=== PATIENT | male | born 1970 | race Caucasian/White ===

== ENCOUNTER 2018-11-27 15:50 | Inpatient (IN) | payer MEDICAID, OTHER ==
[~2018-11-27] VITALS: Ht 177.8 cm; Wt 91.7 kg
[2018-11-27 16:34] LABS: HEMATOCRIT 29 % (40-54); HEMOGLOBIN 10.4 G/DL (13.3-17.7); MEAN CORPUSCULAR HEMOGLOBIN 37 PG (25-34); WHITE BLOOD COUNT 4.5 10^3/uL (4.3-11.0)
[2018-11-27 16:35] LABS: BASOPHILS % (AUTO) 1 % (0-10); EOSINOPHILS % (AUTO) 1 % (0-10); LYMPHOCYTES # (AUTO) 1.5 X 10^3 (1.0-4.0); LYMPHOCYTES % (AUTO) 33 % (12-44); MEAN CORPUSCULAR HGB CONC 36 G/DL (32-36); MEAN CORPUSCULAR VOLUME 102 FL (80-99); MEAN PLATELET VOLUME 9.5 FL (7.4-10.4); MONOCYTES # (AUTO) 0.6 X 10^3 (0.0-1.0); MONOCYTES % (AUTO) 13 % (0-12); NEUTROPHILS # (AUTO) 2.4 X 10^3 (1.8-7.8); NEUTROPHILS % (AUTO) 52 % (42-75); PLATELET COUNT 238 10^3/uL (130-400); RED CELL DISTRIBUTION WIDTH 15.9 % (10.0-14.5)
[2018-11-27 16:36] LABS: BASOPHILS # (AUTO) 0.1 10^3/uL (0.0-0.1)
[2018-11-27 16:56] VITALS: BP_SYST 116; BP_SYST 124; BP_SYST 83; BP_DIAS 54; BP_DIAS 80; BP_DIAS 96
[2018-11-27 16:56] LABS: SODIUM 139 MMOL/L (135-145)
[2018-11-27 16:58] LABS: ALANINE AMINOTRANSFERASE 35 U/L (0-55); ALKALINE PHOSPHATASE 165 U/L (40-136); BILIRUBIN,TOTAL 1.3 MG/DL (0.1-1.0); BUN/CREATININE RATIO 13; CALCIUM 9.4 MG/DL (8.5-10.1); CARBON DIOXIDE 20 MMOL/L (21-32); CHLORIDE 93 MMOL/L (98-107); GFR ESTIMATED > 60; GLUCOSE 147 MG/DL (70-105); POTASSIUM 2.2 MMOL/L (3.6-5.0)
[2018-11-27 16:59] LABS: ALBUMIN 3.8 GM/DL (3.2-4.5); TOTAL PROTEIN 6.6 GM/DL (6.4-8.2)
[2018-11-27] MEDS ORDERED: NS IV 1000 ML 1,000 ML IV SCH ×2 (17:00→18:45)
[2018-11-27] MEDS ORDERED: KCL 20 MEQ TAB (K-DUR) PO ONE ×3 (17:00→22:45)
--- NOTE | 2018-11-27 17:01 | Diagnostic Imaging Report ---
INDICATION: Shortness of air. Dizziness. Weakness. COMPARISON: None FINDINGS: Frontal and lateral views of the chest demonstrate normal heart size and pulmonary vascularity. The lungs are clear. There are no signs of infiltrate, pleural effusions or pneumothoraces. The visualized osseous structures show no acute abnormalities. IMPRESSION: 1. No acute process. No signs of infiltrates, effusions or pneumothoraces. Dictated by: Dictated on workstation # [id number]
[2018-11-27] MEDS ORDERED: RT-ALBUTEROL SULF 2.5 MG/3 ML PRE-MIX VIAL INH ONE (17:45)
[2018-11-27] MEDS ORDERED: NS W/KCL 40 MEQ/L 1,000 ML IV STA (17:54)
[2018-11-27] MEDS ORDERED: POTASSIUM CL 10MEQ/50ML IVPB 100 ML IV ONE (18:01)
--- NOTE | 2018-11-27 18:15 | ED General ---
General Chief Complaint: Neurological Problems Stated Complaint: SOA,WEAKNESS Nursing Triage Note: Patient reports numbness/tingling in his feet bilaterally and two fingers on his right hand for one week. Also reports generalized weakness, states he cannot walk far without needing to sit down. Also reports nasal drainage and cough for one week. Nursing Sepsis Screen: No Definite Risk History of Present Illness Date Seen by Provider: Nov 27, 2018 Time Seen by Provider: 15:00 Initial Comments 48 yo male hx above by nurse is accurate, these were the presenting complaints has hx of psych issues prior OD has been on several psych meds in the past, but currently only takes seroquel at HS occ trazadone, neither are new states he is unaware of having any active medical problem and has never been admitted for such no prior visits here pt is heavy etoh drinker, says a few weeks ago he ran out and hallucinated a little apparently never seized pt is adamant that he has not taken any intentional overdose or ingested any inappropriate substance c/o weakness, MCCARTHY, head and chest congestion, near syncopal episodes (though no syncope or fall) no chest pain no V or D has been constipated denies ever having had bloody or dark tarry stools no urinary sx's pt readily admits to etoh and THC use, denies harder drugs no IV use denies taking any diuretics or water pills Allergies and Home Medications Allergies Coded Allergies: No Known Drug Allergies (Unverified , 11/27/18) Patient Home Medication List Home Medication List Reviewed: Yes Review of Systems Review of Systems Constitutional: No chills; dizziness; No fever EENTM: nose congestion Respiratory: cough, wheezing Cardiovascular: no symptoms reported; No chest pain, No palpitations, No syncope Gastrointestinal: No abdominal pain; constipation; No diarrhea, No vomiting Genitourinary: no symptoms reported Musculoskeletal: muscle weakness Psychiatric/Neurological: Denies Depressed Past Aeyuwez-Udxghd-Ysrurz Hx Patient Social History Recent Foreign Travel: No Contact w/Someone Who Travel: No Recent Infectious Disease Expo: No Physical Exam Vital Signs Vital Signs - First Documented 11/27/18 15:55 Temp 98.0 Pulse 116 Resp 22 B/P (MAP) 119/84 (96) Pulse Ox 98 O2 Delivery Room Air Capillary Refill : Less Than 3 Seconds Height, Weight, BMI Height: 5'10.00" Weight: 230lbs. oz. 104.449085tu; BMI Method:Stated General Appearance: No Apparent Distress Eyes: Bilateral Eye PERRL, Bilateral Eye EOMI HEENT: Pharynx Normal Respiratory: Rhonci, Wheezing Cardiovascular: Regular Rate, Rhythm Gastrointestinal: Non Tender; No Guarding, No Rebound Extremity: Normal Inspection Focused Exam Lactate Level 11/27/18 17:55: Lactic Acid Level 5.35*H 11/27/18 19:56: Lactic Acid Level Laboratory Tests Test 11/27/18 17:55 11/27/18 19:56 Lactic Acid Level 5.35 MMOL/L (0.50-2.00) *H Progress/Results/Core Measures Suspected Sepsis Recent Fever Within 48 Hours: No Infection Criteria Present: None New/Unexplained Altered Menta: No Sepsis Screen: No Definite Risk SIRS Temperature:98.0 Pulse: 116 Respiratory Rate: 22 Laboratory Tests 11/27/18 16:25: White Blood Count 4.5 Blood Pressure 83 /54 Mean: 64 11/27/18 17:55: Lactic Acid Level 5.35*H 11/27/18 19:56: Laboratory Tests 11/27/18 16:25: Creatinine 0.70, Platelet Count 238, Total Bilirubin 1.3H Results/Orders Lab Results Laboratory Tests Test 11/27/18 16:08 11/27/18 16:25 11/27/18 17:55 11/27/18 18:30 Range/Units Glucometer 180 H 70-110 MG/DL White Blood Count 4.5 4.3-11.0 10^3/uL Red Blood Count 2.82 L 4.35-5.85 10^6/uL Hemoglobin 10.4 L 13.3-17.7 G/DL Hematocrit 29 L 40-54 % Mean Corpuscular Volume 102 H 80-99 FL Mean Corpuscular Hemoglobin 37 H 25-34 PG Mean Corpuscular Hemoglobin Concent 36 32-36 G/DL Red Cell Distribution Width 15.9 H 10.0-14.5 % Platelet Count 238 130-400 10^3/uL Mean Platelet Volume 9.5 7.4-10.4 FL Neutrophils (%) (Auto) 52 42-75 % Lymphocytes (%) (Auto) 33 12-44 % Monocytes (%) (Auto) 13 H 0-12 % Eosinophils (%) (Auto) 1 0-10 % Basophils (%) (Auto) 1 0-10 % Neutrophils # (Auto) 2.4 1.8-7.8 X 10^3 Lymphocytes # (Auto) 1.5 1.0-4.0 X 10^3 Monocytes # (Auto) 0.6 0.0-1.0 X 10^3 Eosinophils # (Auto) 0.0 0.0-0.3 10^3/uL Basophils # (Auto) 0.1 0.0-0.1 10^3/uL Sodium Level 139 135-145 MMOL/L Potassium Level 2.2 *L 3.6-5.0 MMOL/L Chloride Level 93 L 98-107 MMOL/L Carbon Dioxide Level 20 L 21-32 MMOL/L Anion Gap 26 H 5-14 MMOL/L Blood Urea Nitrogen 9 7-18 MG/DL Creatinine 0.70 0.60-1.30 MG/DL Estimat Glomerular Filtration Rate > 60 BUN/Creatinine Ratio 13 Glucose Level 147 H 70-105 MG/DL Calcium Level 9.4 8.5-10.1 MG/DL Corrected Calcium 9.6 8.5-10.1 MG/DL Magnesium Level 0.8 *L 1.8-2.4 MG/DL Total Bilirubin 1.3 H 0.1-1.0 MG/DL Aspartate Amino Transf (AST/SGOT) 96 H 5-34 U/L Alanine Aminotransferase (ALT/SGPT) 35 0-55 U/L Alkaline Phosphatase 165 H 40-136 U/L Troponin I < 0.30 <0.30 NG/ML Total Protein 6.6 6.4-8.2 GM/DL Albumin 3.8 3.2-4.5 GM/DL Serum Alcohol 87 H <10 MG/DL Lactic Acid Level 5.35 *H 0.50-2.00 MMOL/L Blood Gas Puncture Site LT RADIAL Blood Gas Patient Temperature 98 Arterial Blood pH 7.51 H 7.37-7.43 Arterial Blood Partial Pressure CO2 29 L 35-45 MMHG Arterial Blood Partial Pressure O2 61 L 79-93 MMHG Arterial Blood HCO3 23 23-27 MMOL/L Arterial Blood Total CO2 24.0 21.0-31.0 MMOL/L Arterial Blood Oxygen Saturation 93 L 94-100 % Arterial Blood Base Excess 0.9 -2.5-2.5 MMOL/L Arturo Test OK Blood Gas Ventilator Setting NO Blood Gas Inspired Oxygen N Test 11/27/18 19:05 11/27/18 19:56 Range/Units Urine Color DK YELLOW Urine Clarity SLT CLOUDY Urine pH 7.5 5-9 Urine Specific [place] 1.020 1.016-1.022 Urine Protein 1+ H NEGATIVE Urine Glucose (UA) NEGATIVE NEGATIVE Urine Ketones TRACE H NEGATIVE Urine Nitrite NEGATIVE NEGATIVE Urine Bilirubin 2+ H NEGATIVE Urine Urobilinogen >=8.0 NORMAL MG/DL Urine Leukocyte Esterase TRACE H NEGATIVE Urine RBC (Auto) NEGATIVE NEGATIVE Urine RBC NONE /HPF Urine WBC 0-2 /HPF Urine Squamous Epithelial Cells NONE /HPF Urine Crystals NONE /LPF Urine Bacteria NEGATIVE /HPF Urine Casts PRESENT /LPF Urine Hyaline Casts 2-5 H /LPF Urine Mucus FEW /LPF Urine Culture Indicated NO Urine Opiates Screen NEGATIVE NEGATIVE Urine Oxycodone Screen NEGATIVE NEGATIVE Urine Methadone Screen NEGATIVE NEGATIVE Urine Propoxyphene Screen NEGATIVE NEGATIVE Urine Barbiturates Screen NEGATIVE NEGATIVE Ur Tricyclic Antidepressants Screen POSITIVE H NEGATIVE Urine Phencyclidine Screen NEGATIVE NEGATIVE Urine Amphetamines Screen NEGATIVE NEGATIVE Urine Methamphetamines Screen NEGATIVE NEGATIVE Urine Benzodiazepines Screen NEGATIVE NEGATIVE Urine Cocaine Screen NEGATIVE NEGATIVE Urine Cannabinoids Screen POSITIVE H NEGATIVE Potassium Level 2.4 *L 3.6-5.0 MMOL/L My Orders Orders - SANDY COLBY MD Cbc With Automated Diff (11/27/18 16:15) Comprehensive Metabolic Panel (11/27/18 16:15) Accucheck Stat ONCE (11/27/18 16:15) Urinalysis (11/27/18 16:15) Orthostatic Vital Signs (Adult (11/27/18 16:22) Ekg Tracing (11/27/18 16:22) Troponin I (11/27/18 16:22) Chest Pa/Lat (2 View) (11/27/18 16:22) Drug Screen Stat (Urine) (11/27/18 16:25) Alcohol (11/27/18 16:25) Ns Iv 1000 Ml (Sodium Chloride 0.9%) (11/27/18 17:00) Potassium Chloride (Tablet) (K Dur Table (11/27/18 17:00) Lactic Acid Analyzer (11/27/18 17:42) Albuterol Pre-Mix Nebs (Rt) (Proventil (11/27/18 17:45) Svn Small Volume Nebulizer (11/27/18 17:42) Ns W/Kcl 40 Meq/L (Ns Iv W/Kcl 40 Meq/L) (11/27/18 17:54) Potassium Chloride (Tablet) (K Dur Table (11/27/18 18:00) Potassium Cl 10meq/50ml Ivpb (Kcl 10 Meq (11/27/18 18:01) Arterial Blood Gas (11/27/18 18:28) Potassium Cl 10meq/50ml Ivpb (Kcl 10 Meq (11/27/18 18:45) Ns Iv 1000 Ml (Sodium Chloride 0.9%) (11/27/18 18:45) Magnesium (11/27/18 18:53) Magnesium 1 Gm/100 Ml Ivpb (Magnesium Sharma (11/27/18 19:15) Potassium (11/27/18 19:54) Medications Given in ED Current Medications Medications Dose Ordered Sig/Selene Route Start Time Stop Time Status Last Admin Dose Admin Albuterol Sulfate 2.5 mg ONCE ONCE INH 11/27/18 17:45 11/27/18 17:51 DC 11/27/18 17:59 2.5 MG Potassium Chloride 20 meq ONCE ONCE PO 11/27/18 18:00 11/27/18 18:01 DC 11/27/18 18:39 20 MEQ Potassium Chloride 40 meq ONCE ONCE PO 11/27/18 17:00 11/27/18 17:01 DC 11/27/18 17:13 40 MEQ Potassium Chloride 50 ml @ 50 mls/hr ONCE ONCE IV 11/27/18 18:45 11/27/18 19:44 DC 11/27/18 19:32 50 MLS/HR Vital Signs/I&O 11/27/18 11/27/18 11/27/18 15:55 16:56 20:16 Temp 98.0 Pulse 116 108 Resp 22 B/P (MAP) 119/84 (96) 124/96 (105) 142/102 (115) 116/80 (92) 83/54 (64) Pulse Ox 98 O2 Delivery Room Air Capillary Refill : Less Than 3 Seconds Blood Pressure Mean: 64 Point of Care Testing Finger Stick Blood Glucose: 180 Progress Note : Time: 18:37 Progress Note orthostatts + BP to 83/61 so IV NS 1 liter given K+ 2.2 po and Iv replacement being given anion gap 26 lactate >5 getting 2nd liter etoh 87 ABG ordered pH 7.51 after 2 liters iv ns and po and IV doses of KCL repeat 2.4 and lactate only marginally better will require inpt to correct discussed with hospitalist Dr. Manjula Fair [facility] agrees to accept to tele ECG Initial ECG Impression Date: Nov 27, 2018 Initial ECG Impression Time: 16:15 Initial ECG Rhythm: Normal Sinus Initial ECG Impression: Normal Diagnostic Imaging Diagonstic Imaging: Xray (read as normal) Departure Communication (Admissions) Time/Spoke to Admitting Phy: 20:30 Dr Fair aware of all above wants 80 meq KCL in liter NS @125 and mg++ 4g IV overnight re check labs admit to tele Impression Primary Impression: Hypokalemia Additional Impressions: Lactic acidosis Hypomagnesemia Disposition: ADMITTED INPATIENT Condition: Improved Admissions Decision to Admit Reason: Admit from ER (General) Decision to Admit/Date: Nov 27, 2018 Time/Decision to Admit Time: 20:30 Departure-Patient Inst. Referrals: NO,LOCAL PHYSICIAN (PCP/Family) Primary Care Physician SANDY COLBY MD Nov 27, 2018 18:15
[2018-11-27 18:41] LABS: ALLENS TEST OK; INSPIRED O2 N; PATIENT TEMP 98; VENTILATOR NO
[2018-11-27 18:42] LABS: ABG BASE EXCESS 0.9 MMOL/L (-2.5-2.5); ABG OXYGEN SATURATION 93 % (94-100); ABG PCO2 29 MMHG (35-45); ABG PH 7.51 (7.37-7.43); ABG PO2 61 MMHG (79-93)
[2018-11-27] MEDS ORDERED: POTASSIUM CL 10MEQ/50ML IVPB 50 ML IV ONE (18:45)
[2018-11-27 19:26] LABS: BILIRUBIN,URINE 2+ (NEGATIVE); CLARITY,URINE SLT CLOUDY; COLOR,URINE DK YELLOW; GLUCOSE, URINE (UA) NEGATIVE (NEGATIVE); KETONES,URINE TRACE (NEGATIVE); LEUKOCYTE ESTERASE ,URINE TRACE (NEGATIVE); NITRITE,URINE NEGATIVE (NEGATIVE); PH,URINE 7.5 (5-9); PROTEIN,URINE 1+ (NEGATIVE); UROBILINOGEN,URINE >=8.0 MG/DL (NORMAL)
[2018-11-27 19:27] LABS: BACTERIA,URINE NEGATIVE /HPF; WBC,URINE 0-2 /HPF
[2018-11-27 19:29] LABS: CANNABINOID SCREEN, URINE POSITIVE (NEGATIVE); TRICYCLIC ANTIDEPRESSANTS SCRE POSITIVE (NEGATIVE)
[2018-11-27] MEDS: MAGNESIUM 1 GM/100 ML IVPB 100 ML IV SCH ×3 (19:29→23:07)
[2018-11-27 19:30] LABS: AMPHETAMINE SCREEN, URINE NEGATIVE (NEGATIVE); BARBITURATE SCREEN URINE NEGATIVE (NEGATIVE); BENZODIAZEPINES SCREEN URINE NEGATIVE (NEGATIVE); COCAINE SCREEN URINE NEGATIVE (NEGATIVE); METHADONE STAT NEGATIVE (NEGATIVE); METHAMPHETAMINE SCREEN URINE S NEGATIVE (NEGATIVE); OPIATE SCREEN URINE NEGATIVE (NEGATIVE); OXYCODONE STAT NEGATIVE (NEGATIVE); PROPOXYPHENE STAT NEGATIVE (NEGATIVE)
[2018-11-27 20:16] VITALS: BP 142/102
[2018-11-27] MEDS ORDERED: LORazepam INJ 2 MG/ML (ATIVAN) VIAL IVP ONE (21:15)
[2018-11-27] MEDS ORDERED: 1/2 NS W/KCL 20 MEQ/L 1,000 ML IV ONE (22:23)
[2018-11-27 22:24] VITALS: BP 129/108
[2018-11-27 22:30] VITALS: BP 137/124
[2018-11-27] MEDS ORDERED: MAGNESIUM 1 GM/100 ML IVPB 400 ML IV ONE (22:41)
[2018-11-27 22:45] VITALS: BP 144/102
[2018-11-27] MEDS: 1/2 NS W/KCL 20 MEQ/L 1,000 ML IV SCH (22:45)
[2018-11-27 23:00] VITALS: BP 138/102
[2018-11-27] MEDS: POTASSIUM CL 10MEQ/50ML IVPB 50 ML IV SCH (23:07)
[2018-11-28] VITALS (20 sets, daily range): BP systolic 12–177; BP diastolic 86–123
--- NOTE | 2018-11-28 | NUR ---
Pt requesting home medication of seroquel and trazodone. Pt reports taking 800 mg seroquel every night and "200 or 250" mg of trazodone every night. This RN contacted E-ICU, requested CIWA d/t pt's daily ETOH abuse and pt request for medication. This RN examined pt's external med history and noted pt has prescriptions filled for 800 mg seroquel Q HS and 150 mg trazodone Q HS, along with other medications to be addressed by hospitalist in am. Awaiting orders and guidance from E-ICU.
[2018-11-28] MEDS: POTASSIUM CL 10MEQ/50ML IVPB 50 ML IV SCH ×4 (00:03→05:33)
[2018-11-28] MEDS: MAGNESIUM 1 GM/100 ML IVPB 100 ML IV SCH ×4 (00:03→05:34)
[2018-11-28] MEDS ORDERED: QUEtiapine 200 MG (SEROquel) TAB IMMEDIATE RELEASE PO ONE (01:45)
[2018-11-28] MEDS ORDERED: traZODone 150 MG (DESYREL) TABLET PO ONE (01:45)
[2018-11-28] MEDS ORDERED: 1/2 NS IV SOLUTION 1,000 ML IV PRN (03:23)
[2018-11-28] MEDS ORDERED: D5 1/2 NS 1000 ML IV SOLUTION 1,000 ML IV PRN (03:30)
[2018-11-28] MEDS ORDERED: ONDANSETRON 4 MG/2 ML (SDV) Z0FRAN IV PRN (03:30)
[2018-11-28] MEDS ORDERED: ONDANSETRON 4 MG (ZOFRAN) ORAL DISSOLVE TAB SL PRN (03:30)
[2018-11-28] MEDS ORDERED: SENNA W/DOCUSATE (SENOKOT S) TABLET PO PRN (03:30)
[2018-11-28] MEDS ORDERED: LORazepam INJ 2 MG/ML (ATIVAN) VIAL IM/IV PRN (03:30)
[2018-11-28] MEDS ORDERED: ANTACID SUSP 30 ML UDC (MYLANTA) PO PRN (03:30)
[2018-11-28 04:15] LABS: BASOPHILS % (AUTO) 0 % (0-10); EOSINOPHILS % (AUTO) 0 % (0-10); HEMATOCRIT 25 % (40-54); HEMOGLOBIN 8.8 G/DL (13.3-17.7); LYMPHOCYTES # (AUTO) 1.4 X 10^3 (1.0-4.0); LYMPHOCYTES % (AUTO) 29 % (12-44); MEAN CORPUSCULAR HEMOGLOBIN 37 PG (25-34); MEAN CORPUSCULAR HGB CONC 35 G/DL (32-36); MEAN CORPUSCULAR VOLUME 104 FL (80-99); MEAN PLATELET VOLUME 9.5 FL (7.4-10.4); MONOCYTES # (AUTO) 0.6 X 10^3 (0.0-1.0); MONOCYTES % (AUTO) 12 % (0-12); NEUTROPHILS # (AUTO) 2.8 X 10^3 (1.8-7.8); NEUTROPHILS % (AUTO) 58 % (42-75); PLATELET COUNT 230 10^3/uL (130-400); RED CELL DISTRIBUTION WIDTH 16.2 % (10.0-14.5); WHITE BLOOD COUNT 4.7 10^3/uL (4.3-11.0)
[2018-11-28] MEDS: LORazepam 1 MG (ATIVAN) TAB PO PRN (04:33)
[2018-11-28 04:38] LABS: ALANINE AMINOTRANSFERASE 31 U/L (0-55); ALBUMIN 3.1 GM/DL (3.2-4.5); ALKALINE PHOSPHATASE 142 U/L (40-136); BILIRUBIN,TOTAL 1.5 MG/DL (0.1-1.0); BUN/CREATININE RATIO 13; CALCIUM 8.1 MG/DL (8.5-10.1); CARBON DIOXIDE 20 MMOL/L (21-32); CHLORIDE 104 MMOL/L (98-107); CREATININE SERUM 0.71 MG/DL (0.60-1.30); GFR ESTIMATED > 60; GLUCOSE 119 MG/DL (70-105); MAGNESIUM 2.1 MG/DL (1.8-2.4); PHOSPHORUS 1.2 MG/DL (2.3-4.7); POTASSIUM 3.1 MMOL/L (3.6-5.0); SODIUM 140 MMOL/L (135-145); TOTAL PROTEIN 5.6 GM/DL (6.4-8.2)
[2018-11-28] MEDS ORDERED: POTASSIUM CL 10 MEQ/50 ML IVPB (PRE-MIX) IV SCH (05:00)
[2018-11-28] MEDS ORDERED: SODIUM PHOSPHATE INJ 40 MM in NS (IVPB) 250 ML INJ ONE (05:00)
[2018-11-28] MEDS ORDERED: MAGNESIUM 1 GM/D5W 100 ML IVPB IV SCH (05:00)
[2018-11-28] MEDS: KCL 20 MEQ TAB (K-DUR) PO SCH (05:34)
[2018-11-28] MEDS ORDERED: POTASSIUM PHOSPHATE INJ 30 MM in NS (IVPB) 250 ML IV ONE ×2 (06:00→13:30)
--- NOTE | 2018-11-28 06:06 | Pulmonary Consultation ---
History of Present Illness History of Present Illness Date of Consultation 11/28/18 06:01 Time Seen by Provider: 08:44 Date of Admission History of Present Illness 48yo with hx of alochol dependance, and psych issues and on multiple psych meds presented to ED secondary to worsening numbness/tingling in his feet bilaterally and 2 fingers on right hand. Symptoms started 1 week ago. He also complains of worsening SOB, and weakness. I am consulted for pulmonary management. Allergies and Home Medications Allergies Coded Allergies: No Known Drug Allergies (Unverified , 11/27/18) Past Jijbvbk-Jtofvv-Plizmk Hx Patient Social History Recent Foreign Travel: No Contact w/Someone Who Travel: No Recent Infectious Disease Expo: No Family Medical History Patient reports no known family medical history. Review of Systems Time Seen by Provider: 06:08 Sepsis Event Evaluation Height, Weight, BMI Height: 5'10.00" Weight: 216lbs. 0.0oz. 97.517829jx; 31.0 BMI Method:Stated Exam Exam Vital Signs Date Time Temp Pulse Resp B/P (MAP) Pulse Ox O2 Delivery O2 Flow Rate FiO2 11/28/18 05:00 96 18 134/96 (109) 94 Room Air 11/28/18 04:14 97.4 11/28/18 04:00 105 16 129/96 (107) 96 Room Air 11/28/18 04:00 Room Air 11/28/18 03:00 103 23 136/99 (111) 93 Room Air 11/28/18 02:00 97 18 163/116 (132) 99 Room Air 11/28/18 01:00 109 11/28/18 01:00 99 20 177/123 (141) 98 Room Air 11/28/18 00:00 101 15 154/107 (123) 96 Room Air 11/28/18 00:00 99 Room Air 11/27/18 23:00 108 19 138/102 (114) 99 Room Air 11/27/18 22:45 109 14 144/102 (116) 97 Room Air 11/27/18 22:30 110 17 137/124 (128) 99 Room Air 11/27/18 22:26 112 11/27/18 22:24 97.3 114 26 129/108 (115) 98 Room Air 11/27/18 22:18 97 Room Air 11/27/18 21:30 98.6 115 20 123/92 (102) 95 Room Air 11/27/18 20:16 108 142/102 (115) 11/27/18 16:56 124/96 (105) 116/80 (92) 83/54 (64) 11/27/18 15:55 98.0 116 22 119/84 (96) 98 Room Air I & O 11/28/18 07:00 Intake Total 3300 ml Balance 3300 ml Height & Weight Height: 5'10.00" Weight: 216lbs. 0.0oz. 97.391741xu; 31.0 BMI Method:Stated General Appearance: No Apparent Distress HEENT: Pharynx Normal Respiratory: Rhonci, Wheezing Cardiovascular: Regular Rate, Rhythm Capillary Refill: Less Than 3 Seconds Extremity: Normal Inspection Results Lab Laboratory Tests 11/27/18 16:25 11/27/18 19:56 11/28/18 03:58 Assessment/Plan Assessment/Plan Severe electrolyte disturbance -Replace Alcohol dependance -MORENA protocol Marijuana -Education Tobacco Dependance ULYSSES MCFARLAND DO Nov 28, 2018 06:06
[2018-11-28] MEDS ORDERED: NS IV 1000 ML 1,000 ML ONE (06:10)
[2018-11-28] MEDS ORDERED: NS IV 1000 ML 1,000 ML IV SCH (06:15)
[2018-11-28] MEDS ORDERED: MULTIVIT W/MINERALS TAB (THERAGRAN M) PO SCH (07:00)
[2018-11-28] MEDS ORDERED: THIAMINE 100 MG (VITAMIN B-1) TAB PO SCH (07:00)
[2018-11-28] MEDS: 1/2 NS W/KCL 20 MEQ/L 1,000 ML IV SCH ×3 (07:49→21:57)
[2018-11-28] MEDS: THIAMINE INJECTION 100 MG, FOLIC ACID INJECTION 1 MG, MAGNESIUM SULFATE 2 GM, VITAMIN M... IV SCH ×10 (07:49→10:10)
[2018-11-28] MEDS: LORazepam INJ 2 MG/ML (ATIVAN) VIAL IV PRN ×5 (07:57→20:51)
--- NOTE | 2018-11-28 08:32 | History & Physical-Hospitalist ---
JAVON MANRIQUEZ,MED STUDENT 11/28/18 0832: History of Present Illness HPI/Chief Complaint Patient is a 48y/o male who appears older than his stated age that complains of tingling in his feet for about a week. He complains of dizziness, coughing that causes vomiting, SOB with exertion, nausea, tingling in his extremities, fever, chills. He denies headache and numbness in extremities. He admits to being an alcoholic and consuming a 1/5 of handle a day. He says that nothing makes the tingling better or worse. He also has had throat pain for the past year that gets better when he drinks water. Patient is poor historian Date Seen 11/28/18 Attending Physician Imelda Fair MD PCP No,Local Physician Referring Physician Date of Admission Nov 27, 2018 at 20:30 Home Medications & Allergies Home Medications Reviewed patient Home Medication Reconciliation performed by pharmacy medication reconciliations iv technician and/or nursing. Patients Allergies have been reviewed. Allergies Allergies Coded Allergies No Known Drug Allergies (Unverified11/27/18) Past Tbqmcpx-Ckjxkz-Lxpjhg Hx Patient Social History Number of Children: 1 Number of living children: 1 Employed/Student: unemployed Alcohol Use: Regular Use Recreational Drug Use: Yes Drug of Choice: MJ Smoking Status: Current Everyday Smoker Cigaretts per day: 25 Type Used: Cigarettes Recent Foreign Travel: No Contact w/other who traveled: No Recent Infectious Disease Expo: No Past Medical History Psychosocial: PTSD, Bipolar schizoaffective and hallucinations Family History Patient reports no known family medical history. GI Disease (Patient was not specific ) Review of Systems Constitutional: see HPI Gastrointestinal: see HPI Psychiatric/Neurological: See HPI Physical Exam Physical Exam Vital Signs Vital Signs - First Documented 11/27/18 15:55 Temp 98.0 Pulse 116 Resp 22 B/P (MAP) 119/84 (96) Pulse Ox 98 O2 Delivery Room Air Capillary Refill : Less Than 3 Seconds Height, Weight, BMI Height: 5'10.00" Weight: 217lbs. 5.0oz. 98.718861qa; 31.0 BMI Method:Stated General Appearance: No Apparent Distress, Obese Neck: Tender Lateral (on L side ) Respiratory: Chest Non Tender, Lungs Clear, No Accessory Muscle Use, No Respiratory Distress, Wheezing Cardiovascular: Regular Rate, Rhythm, No Edema, No Gallop, No JVD, No Murmur, Normal Peripheral Pulses Gastrointestinal: Normal Bowel Sounds, No Pulsatile Mass, Non Tender, Soft Extremity: No Pedal Edema Neurologic/Psychiatric: Alert, Other (sluggish and slightly agitated) Skin: Normal Color, Warm/Dry Results Results/Procedures Labs Laboratory Tests 11/27/18 16:25 11/27/18 19:56 11/28/18 03:58 11/28/18 12:05 Patient resulted labs reviewed. 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 Macrocytic Anemia - * checking B12 and folate * likely some is dilutional * check in morning Paresthesias in feet - likely due nutritional deficiency or alcoholic neuropathy * recheck in morning FENGIPPx * fluids = see above * Electrolytes = see above * Nutrition = switch from clear liquids to regular diet * GI PPx = not indicated * PPX = SCD Clinical Quality Measures DVT/VTE Risk/Contraindication: Risk Factor Score Per Nursin RFS Level Per Nursing on Admit: 3=High OLIMPIA PARKS MD 11/28/181936: History of Present Illness HPI/Chief Complaint Pt is a 48yoCM who presented to the ER with a CC of falls and tingling in his feet. He relies a varying history and is a poor historian. He reports to me that it has been going on for 2 weeks and he knows of no precipitating event. He denies any alleviating or aggravating factors. He otherwise offers very little history. He complained of many things to the medical student and then denied them outright to me so HPI and ROS is quite convoluted. He does state that he has a "psych history" but when I asked what he had been diagnosed with he declined to tell me. He does endorse significant alcohol use. He drinks 1/5 per day and states his last drink was "about 10 seconds before being dropped off." Exam Limitations: clinical condition Time Seen by a Provider: 08:45 Past Gzhuxyn-Ljboms-Kplucq Hx Past Med/Social Hx: Reviewed Nursing Past Med/Soc Hx Family History Reviewed Nursing Family Hx Patient reports no known family medical history. Review of Systems ROS-Unable to Obtain: Very limited and varying- see HPI Physical Exam Physical Exam General Appearance: Chronically ill, Other (appears older than stated age, dishevelled) HEENT: Moist Mucous Membranes Neck: Normal Inspection, Other (bearded) Extremity: Normal Capillary Refill, No Calf Tenderness Neurologic/Psychiatric: Other (oriented to person and place, somewhat drowsy but easily agitated) Results Results/Procedures Imaging: Reviewed Imaging Report Assessment/Plan Admission Diagnosis Severe Hypokalemia and electrolyte abnormalities Diagnosis/Problems Diagnosis/Problems (1) Alcohol abuse (2) Macrocytic anemia (3) Hypomagnesemia Status: Acute (4) Lactic acidosis Status: Acute (5) Hypokalemia Status: Acute (6) Dehydration Status: Acute (7) Metabolic acidosis Status: Acute (8) Schizoaffective disorder (9) Marijuana abuse (10) Hyperglycemia (11) Hypophosphatemia Supervisory-Addendum Brief Verification & Attestation Time: Verification & Attestat.: 19:53 Participated in pt care: history, MDM, physical Personally performed: exam, history, MDM, supervision of care Care discussed with: Medical Student Procedures: n/a Results interpretation: Verified all documentation Verification and Attestation of Medical Student E/M Service A medical student performed and documented this service in my presence. I reviewed and verified all information documented by the medical student and made modifications to such information, when appropriate. I personally performed the physical exam and medical decision making. Olimpia Parks, Nov 28, 2018,19:53 JAVON MANRIQUEZ,MED STUDENT Nov 28, 2018 08:32 OLIMPIA PARKS MD Nov 28, 2018 19:37
[2018-11-28] MEDS ORDERED: TRAZ150T72 PO (08:58)
[2018-11-28] MEDS ORDERED: QUET400T12 PO (08:58)
[2018-11-28] MEDS ORDERED: DIVA-76 PO (08:58)
[2018-11-28] MEDS ORDERED: HYDR50TA76 PO (08:58)
[2018-11-28] MEDS ORDERED: HALO5TAB PO (08:58)
[2018-11-28] MEDS ORDERED: OMEP40CA36 PO (08:58)
--- NOTE | 2018-11-28 08:58 | Diagnostic Imaging Report ---
INDICATION: Hypokalemia Comparison made with prior examination from 11/27/18. FINDINGS: The heart size is normal. There is mild venous congestion. The mediastinum is unremarkable. There is no pleural effusion or pneumothorax. IMPRESSION: Mild central pulmonary venous congestion, otherwise unremarkable. Dictated by: Dictated on workstation # [id number]
[2018-11-28] MEDS ORDERED: FOLIC ACID 1 MG TAB PO SCH (09:00)
--- NOTE | 2018-11-28 09:05 | NUR ---
SPOKE WITH THE PATIENT THIS MORNING HOWEVER HE IS DIFFICULT TO UNDERSTAND. I UPDATED THE MED REC WITH WHAT HAS BEEN FILLED RECENTLY AT [facility]. I HAVE CALLED DR. GAINES'S OFFICE AND LEFT A MESSAGE FOR THEM TO SEND OR CALL ME WITH A COMPLETE MEDICATION LIST. I WILL UPDATE WHEN I HEAR BACK FROM THEM IF THERE ARE ANY CHANGES TO WHAT HAS ALREADY BEEN ENTERED FROM [facility].
--- NOTE | 2018-11-28 10:40 | NUR ---
Pastoral care visit,pt asleep
[2018-11-28] MEDS ORDERED: POTASSIUM PHOSPHATE INJ 15 MM in NS (IVPB) 250 ML IV ONE ×2 (11:00→18:30)
[2018-11-28 12:35] LABS: BUN/CREATININE RATIO 10; CALCIUM 7.9 MG/DL (8.5-10.1); CARBON DIOXIDE 22 MMOL/L (21-32); CHLORIDE 105 MMOL/L (98-107); GFR ESTIMATED > 60; GLUCOSE 136 MG/DL (70-105); POTASSIUM 3.1 MMOL/L (3.6-5.0); SODIUM 141 MMOL/L (135-145)
[2018-11-28] MEDS ORDERED: NS IV 1000 ML 1,000 ML IV ONE (14:30)
[2018-11-28] MEDS: NICOTINE 14 MG (NICODERM) PATCH TD SCH (14:36)
--- NOTE | 2018-11-28 15:51 | Physical Therapy Progress Note ---
Therapy Progress Note PT to begin in a.m. per RN. Patient, currently, incontinent BM and urine and is being cleaned by nursing. CHRISTINA DEY PT Nov 28, 2018 15:50
[2018-11-28] MEDS ORDERED: MIDAZOLAM 5 MG/5 ML (VERSED) VIAL INJ ONE (16:52)
[2018-11-28] MEDS ORDERED: HALOPERIDOL 5 MG/ML (HALDOL) AMP ONE (16:53)
[2018-11-28] MEDS ORDERED: NON-FORMULARY MEDICATION 1 EA EA (Hydroxyzine HCl 50 MG) PO SCH (17:00)
[2018-11-28] MEDS: hydrOXYzine (VISTARIL/ATARAX) 25 MG capsule/tablet PO SCH ×2 (17:04→20:30)
--- NOTE | 2018-11-28 17:30 | NUR ---
THIS RN RECEIVED A PHONE CALL FROM TATA STATING SHE WAS PTS MOTHER. THIS RN REQUESTED PASSWORD FROM TATA, WHICH WAS PROVIDED. TATA STATED "I WANT TO MAKE SURE I AM LISTED HIS EMERGENCY CONTACT." THIS RN INFORMED TATA THAT WHEN ADMITTED PT DID NOT LIST HER AN EMERGENCY CONTACT AND THAT PT WAS STABLE BUT NOT COHERENT ENOUGH TO REQUEST IF PT WOULD LIKE TATA ADDED AN EMERGENCY CONTACT. TATA STATED THAT WHEN PT WAS ADMITTED TO HOSPITAL IN [place] PT HAD TO BE INTUBATED AND THAT SHE HAD SIGNED PAPERS APPROVING IT AND THAT SHE WAS LISTED AN EMERGENCY CONTACT. THIS RN ASKED IF TATA HAD DPOA PAPERS ON PT. TATA STATED NO. THIS RN INFORMED TATA THAT THE WISHES OF THE PT HAVE TO BE FOLLOWED AND PT DID NOT LIST TATA AN EMERGENCY CONTACT. TATA STATED THAT IF SOMETHING HAPPENED TO PT THEN THE PT EMERGENCY CONTACT WOULD BE CALLED. THIS RN STATED THAT THE EMERGENCY CONTACT WOULD BE CONTACTED AND THAT PERSON HAD ALREADY STATED THAT SHE WOULD CONTACT FAMILY. TATA REQUESTED IF PAPERS FROM [facility] COULD BE FAXED AND IF THAT WOULD LIST TATA AN EMERGENCY CONTACT. THIS RN STATED THAT THE HOSPITAL RECORDS COULD BE REQUESTED BUT THAT THE EMERGENCY CONTACT LISTED WOULD STAY THE SAME. TATA STATED THAT SHE WOULD CONSULT A BATCH OPERATOR.
[2018-11-28] MEDS: QUEtiapine 200 MG (SEROquel) TAB IMMEDIATE RELEASE PO SCH (20:30)
[2018-11-28] MEDS: traZODone 150 MG (DESYREL) TABLET PO SCH (20:30)
[2018-11-28] MEDS: DIVALPROEX 500 MG DELAYED RELEASE (DEPAKOTE) TAB PO SCH (20:30)
[2018-11-28] MEDS ORDERED: QUEtiapine 200 MG (SEROquel) TAB IMMEDIATE RELEASE PO SCH (21:00)
[2018-11-28] MEDS ORDERED: NON-FORMULARY MEDICATION 1 EA EA (Quetiapine Fumarate 400 MG) PO SCH (21:00)
[2018-11-29] VITALS (29 sets, daily range): BP systolic 75–186; BP diastolic 57–120
[2018-11-29] MEDS: 1/2 NS W/KCL 20 MEQ/L 1,000 ML IV SCH ×3 (02:43→22:50)
[2018-11-29 03:47] LABS: BASOPHILS % (AUTO) 1 % (0-10); EOSINOPHILS # (AUTO) 0.1 10^3/uL (0.0-0.3); EOSINOPHILS % (AUTO) 1 % (0-10); HEMATOCRIT 23 % (40-54); HEMOGLOBIN 7.9 G/DL (13.3-17.7); LYMPHOCYTES # (AUTO) 1.4 X 10^3 (1.0-4.0); LYMPHOCYTES % (AUTO) 33 % (12-44); MEAN CORPUSCULAR HEMOGLOBIN 36 PG (25-34); MEAN CORPUSCULAR HGB CONC 34 G/DL (32-36); MEAN CORPUSCULAR VOLUME 107 FL (80-99); MEAN PLATELET VOLUME 9.6 FL (7.4-10.4); MONOCYTES # (AUTO) 0.5 X 10^3 (0.0-1.0); MONOCYTES % (AUTO) 12 % (0-12); NEUTROPHILS # (AUTO) 2.3 X 10^3 (1.8-7.8); NEUTROPHILS % (AUTO) 53 % (42-75); PLATELET COUNT 211 10^3/uL (130-400); RED CELL DISTRIBUTION WIDTH 16.9 % (10.0-14.5); WHITE BLOOD COUNT 4.3 10^3/uL (4.3-11.0)
[2018-11-29] MEDS: LORazepam INJ 2 MG/ML (ATIVAN) VIAL IV PRN ×2 (04:04→16:36)
[2018-11-29 04:09] LABS: BUN/CREATININE RATIO 6; CARBON DIOXIDE 19 MMOL/L (21-32); CHLORIDE 108 MMOL/L (98-107); CREATININE SERUM 0.64 MG/DL (0.60-1.30); GFR ESTIMATED > 60; GLUCOSE 108 MG/DL (70-105); MAGNESIUM 1.3 MG/DL (1.8-2.4); PHOSPHORUS 3.7 MG/DL (2.3-4.7); POTASSIUM 2.8 MMOL/L (3.6-5.0); SODIUM 142 MMOL/L (135-145)
[2018-11-29] MEDS: POTASSIUM CL 10MEQ/50ML IVPB 50 ML IV SCH ×12 (04:42→22:50)
[2018-11-29] MEDS: MAGNESIUM 1 GM/100 ML IVPB 100 ML IV SCH ×5 (04:42→09:42)
[2018-11-29] MEDS: KCL 20 MEQ TAB (K-DUR) PO SCH (04:42)
[2018-11-29] MEDS ORDERED: DEXMEDETOMIDINE INJECTION 200 MCG in NS (IVPB) 50 ML IV SCH (06:45)
[2018-11-29] MEDS ORDERED: PANTOPRAZOLE 40 MG (PROTONIX) TAB PO SCH (07:00)
--- NOTE | 2018-11-29 07:01 | Pulmonary Progress Note ---
Subjective Time Seen by a Provider: 07:00 Subjective/Events-last exam Pt is agitated laying in bed. Sepsis Event Evaluation Height, Weight, BMI Height: 5'10.00" Weight: 220lbs. 0.0oz. 99.364684tl; 31.0 BMI Method:Stated Focused Exam Lactate Level 11/28/18 11:15: Lactic Acid Level 3.91*H 11/28/18 13:52: Lactic Acid Level 3.54*H 11/29/18 03:18: Lactic Acid Level 2.00 Lactic Acid Level Laboratory Tests Test 11/29/18 03:18 Lactic Acid Level 2.00 MMOL/L (0.50-2.00) Exam Exam Vital Signs Date Time Temp Pulse Resp B/P (MAP) Pulse Ox O2 Delivery O2 Flow Rate FiO2 11/29/18 06:00 109 25 174/111 (132) 97 Nasal Cannula 2.00 11/29/18 05:00 107 21 149/100 (116) 98 Nasal Cannula 2.00 11/29/18 04:00 120 18 169/112 (131) 97 Nasal Cannula 2.00 11/29/18 03:39 99.0 Room Air 11/29/18 03:05 95 Room Air 11/29/18 03:00 105 16 144/103 (117) 92 Nasal Cannula 2.00 11/29/18 02:00 104 21 143/101 (115) 96 Nasal Cannula 2.00 11/29/18 01:00 105 22 128/95 (106) 95 Nasal Cannula 2.00 11/29/18 01:00 104 11/29/18 00:20 97.0 11/29/18 00:00 107 20 135/93 (107) 96 Nasal Cannula 2.00 11/28/18 23:15 95 Nasal Cannula 2.00 11/28/18 23:00 105 19 149/98 (115) 96 Nasal Cannula 2.00 11/28/18 22:00 102 22 140/97 (111) 95 Nasal Cannula 2.00 11/28/18 21:00 104 24 141/96 (111) 95 Nasal Cannula 2.00 11/28/18 20:00 105 19 149/103 (118) 91 Nasal Cannula 2.00 11/28/18 20:00 94 Nasal Cannula 2.00 11/28/18 19:35 99.2 Nasal Cannula 2.00 11/28/18 19:02 116 11/28/18 19:00 107 21 156/109 (125) 93 Nasal Cannula 2.00 11/28/18 18:00 105 22 141/104 (116) 94 Nasal Cannula 2.00 11/28/18 17:00 111 26 146/103 (117) 91 Nasal Cannula 2.00 11/28/18 16:41 Nasal Cannula 2.00 11/28/18 16:00 96 36 145/105 (118) 91 Room Air 11/28/18 16:00 Room Air 11/28/18 15:29 97.7 155/112 (126) 11/28/18 15:15 155/112 (126) Room Air 11/28/18 12:00 Room Air 11/28/18 09:00 141/114 (123) Room Air 11/28/18 08:00 Room Air 11/28/18 08:00 96 20 125/90 (102) Room Air 11/28/18 07:00 98.3 99 22 120/88 (99) 96 Room Air 11/28/18 07:00 94 I & O 11/29/18 07:00 Intake Total 5367 ml Output Total 1028 ml Balance 4339 ml Height & Weight Height: 5'10.00" Weight: 220lbs. 0.0oz. 99.704222hc; 31.0 BMI Method:Stated General Appearance: Chronically ill, Other (appears older than stated age, dishevelled) HEENT: Moist Mucous Membranes Neck: Normal Inspection, Other (bearded) Respiratory: Chest Non Tender, Lungs Clear, No Accessory Muscle Use, No Respiratory Distress, Wheezing Cardiovascular: Regular Rate, Rhythm, No Edema, No Gallop, No JVD, No Murmur, Normal Peripheral Pulses Capillary Refill: Less Than 3 Seconds Extremity: Normal Capillary Refill, No Calf Tenderness Neurologic/Psychiatric: Other (oriented to person and place, somewhat drowsy but easily agitated) Skin: Normal Color, Warm/Dry Results Lab Laboratory Tests 11/27/18 16:25 11/27/18 19:56 11/28/18 03:58 11/28/18 12:05 11/29/18 03:18 Assessment/Plan Assessment/Plan Severe electrolyte disturbance -Replace Alcohol dependance with increased agitation through the night -Will proceed with intubation to safely give higher dose sedation. I believe pt is at the beginning stages of withdrawal. -MORENA protocol -Add precedex -Pt has been very agitated through the night. Sitter at bedside. -RN reports pt had to be intubated during last hospitalization secondary to MORENA. Marijuana -Education Probable CARY -out pt testing Anemia -Monitor Tobacco Dependance Time spent with patient and medical staff is 60min. Critical Care: Critically Ill Patient Time spent with patient (mins): 60 ULYSSES MCFARLAND DO Nov 29, 2018 07:00
[2018-11-29] MEDS ORDERED: PROPOFOL DRIP (ICU) 100 ML IV ONE (07:14)
[2018-11-29] MEDS ORDERED: MIDAZOLAM 5 MG/5 ML (VERSED) VIAL ONE ×2 (07:14→07:16)
[2018-11-29] MEDS ORDERED: proPOfol 200 MG/20 ML (DIPRIVAN) VIAL IV ONE (07:14)
[2018-11-29] MEDS ORDERED: fentaNYL INJECTION 100 MCG/2 ML AMP ONE (07:26)
[2018-11-29] MEDS ORDERED: fentaNYL INJECTION 100 MCG/2 ML AMP IVP NR (07:30)
--- NOTE | 2018-11-29 07:52 | Progress Note - Hospitalist ---
Subjective HPI/CC On Admission Date Seen by Provider: Nov 29, 2018 Time Seen by Provider: 07:36 Pt is a 48yoCM who presented to the ER with a CC of falls and tingling in his feet. He relies a varying history and is a poor historian. He reports to me that it has been going on for 2 weeks and he knows of no precipitating event. He denies any alleviating or aggravating factors. He otherwise offers very little history. He complained of many things to the medical student and then denied them outright to me so HPI and ROS is quite convoluted. He does state that he has a "psych history" but when I asked what he had been diagnosed with he declined to tell me. He does endorse significant alcohol use. He drinks 1/5 per day and states his last drink was "about 10 seconds before being dropped off." Subjective/Events-last exam Pt is agitated and laying in bed, asking to go home. Appears confused. Unable to provide any other ROS. Discussed with RN and very agitated overnight. Required multiple doses of benzos including versed without improvement. Dr Mai at bedside and plan to intubate. Focused Exam Lactate Level 11/28/18 11:15: Lactic Acid Level 3.91*H 11/28/18 13:52: Lactic Acid Level 3.54*H 11/29/18 03:18: Lactic Acid Level 2.00 Objective Exam Vital Signs Vital Signs Date Time Temp Pulse Resp B/P (MAP) Pulse Ox O2 Delivery O2 Flow Rate FiO2 11/29/18 07:01 111 11/29/18 06:00 25 174/111 (132) 97 Nasal Cannula 2.00 11/29/18 03:39 99.0 Capillary Refill : Less Than 3 Seconds General Appearance: Chronically ill, Moderate Distress (agitation) Respiratory: Lungs Clear, No Accessory Muscle Use, No Respiratory Distress Cardiovascular: No Murmur, Tachycardia Gastrointestinal: Normal Bowel Sounds, Soft Neurologic/Psychiatric: Alert, Disoriented Skin: Tattoos/Piercings Results/Procedures Lab Laboratory Tests 11/28/18 12:05 11/29/18 03:18 Patient resulted labs reviewed. Assessment/Plan Assessment and Plan Assess & Plan/Chief Complaint Alcohol Withdrawal Plan to intubate patient due to severe agitation refractory to IV pushes of ativan Continue ativan, banana bag Consider Precedex and/or ativan gtt once intubated Acute Respiratory Failure Dr Mai at bedside to intubate, appreciate recs Severe hypokalemia - refractory 2.8 today Continue aggressive replacement Central line to be placed and then replace via central line Severe hypomagnesemia - Continue aggressive replacement Macrocytic Anemia Stable this AM, drop from presentation likely iatrogenic from dilution and blood draws B12 low- replacing, folate pending If hemoglobin drops further will consult Surgery for EGD PPI HAGMA- resolved with fluid resuscitation Paresthesias in feet - likely due nutritional deficiency or alcoholic neuropathy FENGIPPx Lovenox held due to anemia, SCDs NPO PPI Diagnosis/Problems Diagnosis/Problems (1) Alcohol abuse (2) Macrocytic anemia (3) Hypomagnesemia Status: Acute (4) Lactic acidosis Status: Acute (5) Hypokalemia Status: Acute (6) Dehydration Status: Acute (7) Metabolic acidosis Status: Acute (8) Schizoaffective disorder (9) Marijuana abuse (10) Hyperglycemia (11) Hypophosphatemia Clinical Quality Measures DVT/VTE Risk/Contraindication: Risk Factor Score Per Nursin RFS Level Per Nursing on Admit: 3=High KESHA STATON MD Nov 29, 2018 7:52 am
--- NOTE | 2018-11-29 08:40 | NUR ---
0721: 4 VERSED ADMINISTERED 0725: LFA IV D/C'D DUE TO LEAKING 0750: RADHA FROM ANESTHESIA READY TO INTUBATE 0751: 100 FENTANYL, 100 PROPOFOL, 100 SUCS ADMINISTERED BY ANESTHESIA 0752: PT VITALS - HR 103, RR 6, BP 171/96 0753: PT INTUBATED - SIZE 8 TUBE, 24 AT LIP. 0755: 50 ROCC ADMINISTERED BY ANESTHESIA 0810: PT TOLERATING INTUBATION. 0820: ART LINE PLACED IN R RADIAL. PT TOLERATED PROCEDURE.
--- NOTE | 2018-11-29 08:56 | Diagnostic Imaging Report ---
Indication: Intubation Frontal chest obtained at 838 hours a.m. and compared to same day at 346 hours a.m. Heart is normal in size. New ET tube tip overlies mid trachea. NG tube tip overlies proximal stomach. There is infiltrate or atelectasis in the left perihilar region. There is no pneumothorax or pleural fluid. IMPRESSION: New ET tube tip in good position with tip overlying mid trachea. There is some left perihilar infiltrate versus atelectasis. There is no pneumothorax or gross pleural fluid. Dictated by: Dictated on workstation # [id number]
[2018-11-29] MEDS ORDERED: NON-FORMULARY MEDICATION 1 EA EA (Omeprazole 40 MG) PO SCH (09:00)
[2018-11-29 09:16] LABS: ABG BASE EXCESS -1.5 MMOL/L (-2.5-2.5); ABG OXYGEN SATURATION 96 % (94-100); ABG PCO2 55 MMHG (35-45); ABG PO2 88 MMHG (79-93); ABG TCO2 26.5 MMOL/L (21.0-31.0)
[2018-11-29 09:21] LABS: ABG PH 7.27 (7.37-7.43); ALLENS TEST YES-POS; INSPIRED O2 80%; PATIENT TEMP 96.8; VENTILATOR YES
--- NOTE | 2018-11-29 09:24 | Physical Therapy Progress Note ---
Therapy Progress Note Patient is currently on mechanical ventilator. PT to assess patient when medically stable. CHRISTINA DEY PT Nov 29, 2018 09:24
[2018-11-29] MEDS: MIDAZOLAM INJECTION FOR DRIPS 50 MG in NS (IVPB) 90 ML IV SCH (09:36)
[2018-11-29] MEDS: NICOTINE PATCH REMOVAL TP SCH (09:41)
[2018-11-29] MEDS: PANTOPRAZOLE 40 MG (PROTONIX) VIAL IV SCH (09:49)
[2018-11-29] MEDS: NICOTINE 14 MG (NICODERM) PATCH TD SCH (09:49)
[2018-11-29] MEDS: hydrOXYzine (VISTARIL/ATARAX) 25 MG capsule/tablet PO SCH ×4 (09:49→20:56)
--- NOTE | 2018-11-29 09:59 | Diagnostic Imaging Report ---
EXAMINATION: Portable semierect AP chest at 0346 hours. INDICATION: Hypokalemia. FINDINGS: There is a shallow inspiration when compared to the prior exam of 11/28/2018. Allowing for this technical factor, the heart size is within normal limits and stable. The central pulmonary vascularity does not seem quite as prominent as on the prior exam. The lungs are generally clear. Minimal atelectasis has developed in the right lung base, however. There is no sign of pneumonia or significant pleural effusion. The mediastinum is not widened. The osseous structures are intact. IMPRESSION: Aside from the development of minimal atelectasis in the right lung base, there has been no significant change since the prior exam. A followup exam would be recommended if clinically indicated. Dictated by: Dictated on workstation # [id number]
[2018-11-29] MEDS ORDERED: POTASSIUM CL 10MEQ/50ML IVPB 50 ML IV ONE (10:00)
[2018-11-29] MEDS: THIAMINE INJECTION 100 MG, FOLIC ACID INJECTION 1 MG, MAGNESIUM SULFATE 2 GM, VITAMIN M... IV SCH ×5 (10:31)
[2018-11-29] MEDS: DIVALPROEX 500 MG DELAYED RELEASE (DEPAKOTE) TAB PO SCH ×2 (10:37→20:56)
[2018-11-29] MEDS: DEXMEDETOMIDINE INJECTION 1,000 MCG in NS (IVPB) 250 ML IV SCH ×2 (12:01→12:02)
[2018-11-29] MEDS: PROPOFOL DRIP (ICU) 100 ML IV SCH ×4 (12:03→23:43)
[2018-11-29] MEDS ORDERED: inSUlin ASPART (NovoLOG) 1 UNIT/0.01 ML (CHARGE PER UNIT) ONE (12:26)
[2018-11-29] MEDS ORDERED: inSUlin ASPART (NovoLOG) 1 UNIT/0.01 ML (CHARGE PER UNIT) SC SCH (12:30)
[2018-11-29 14:57] LABS: ABG BASE EXCESS -1.7 MMOL/L (-2.5-2.5); ABG OXYGEN SATURATION 96 % (94-100); ABG PCO2 38 MMHG (35-45); ABG PH 7.39 (7.37-7.43); ABG PO2 78 MMHG (79-93)
[2018-11-29 14:58] LABS: ALLENS TEST YES-POS; INSPIRED O2 80%; PATIENT TEMP 97.2; VENTILATOR YES
[2018-11-29] MEDS ORDERED: NS IV 1000 ML 1,000 ML ONE (15:32)
[2018-11-29] MEDS: HALOPERIDOL 5 MG/ML (HALDOL) AMP IM/IV PRN (16:36)
[2018-11-29 17:53] LABS: INR 1.2 (0.8-1.4); PROTHROMBIN TIME PATIENT 15.5 SEC (12.2-14.7)
[2018-11-29 18:02] LABS: ALANINE AMINOTRANSFERASE 30 U/L (0-55); ALBUMIN 2.8 GM/DL (3.2-4.5); ALKALINE PHOSPHATASE 128 U/L (40-136); BILIRUBIN,TOTAL 1.1 MG/DL (0.1-1.0); BUN/CREATININE RATIO 3; CALCIUM 6.5 MG/DL (8.5-10.1); CARBON DIOXIDE 24 MMOL/L (21-32); CHLORIDE 108 MMOL/L (98-107); CREATININE SERUM 0.59 MG/DL (0.60-1.30); GFR ESTIMATED > 60; GLUCOSE 102 MG/DL (70-105); MAGNESIUM 2.3 MG/DL (1.6-2.4); PHOSPHORUS 2.7 MG/DL (2.3-4.7); POTASSIUM 3.3 MMOL/L (3.6-5.0); SODIUM 140 MMOL/L (135-145); TOTAL PROTEIN 5.1 GM/DL (6.4-8.2)
[2018-11-29] MEDS: inSUlin ASPART (NovoLOG) 1 UNIT/0.01 ML (CHARGE PER UNIT) SC SCH ×2 (18:10→23:41)
[2018-11-29] MEDS: traZODone 150 MG (DESYREL) TABLET PO SCH (20:55)
[2018-11-29] MEDS: QUEtiapine 200 MG (SEROquel) TAB IMMEDIATE RELEASE PO SCH (20:56)
[2018-11-30] VITALS (31 sets, daily range): BP systolic 96–167; BP diastolic 72–124
[2018-11-30] MEDS: POTASSIUM CL 10MEQ/50ML IVPB 50 ML IV SCH ×2 (01:16→04:06)
[2018-11-30] MEDS: PROPOFOL DRIP (ICU) 100 ML IV SCH ×7 (03:05→22:54)
[2018-11-30 03:22] LABS: BASOPHILS % (AUTO) 1 % (0-10); EOSINOPHILS # (AUTO) 0.1 10^3/uL (0.0-0.3); EOSINOPHILS % (AUTO) 2 % (0-10); HEMATOCRIT 24 % (40-54); LYMPHOCYTES # (AUTO) 1.1 X 10^3 (1.0-4.0); LYMPHOCYTES % (AUTO) 22 % (12-44); MEAN CORPUSCULAR HEMOGLOBIN 36 PG (25-34); MEAN CORPUSCULAR HGB CONC 33 G/DL (32-36); MEAN CORPUSCULAR VOLUME 110 FL (80-99); MEAN PLATELET VOLUME 10.1 FL (7.4-10.4); MONOCYTES # (AUTO) 0.4 X 10^3 (0.0-1.0); MONOCYTES % (AUTO) 8 % (0-12); NEUTROPHILS # (AUTO) 3.3 X 10^3 (1.8-7.8); NEUTROPHILS % (AUTO) 68 % (42-75); PLATELET COUNT 183 10^3/uL (130-400); WHITE BLOOD COUNT 4.9 10^3/uL (4.3-11.0)
[2018-11-30 03:41] LABS: BUN/CREATININE RATIO 4; CALCIUM 6.4 MG/DL (8.5-10.1); CARBON DIOXIDE 20 MMOL/L (21-32); CHLORIDE 108 MMOL/L (98-107); CREATININE SERUM 0.56 MG/DL (0.60-1.30); GFR ESTIMATED > 60; GLUCOSE 113 MG/DL (70-105); MAGNESIUM 2.1 MG/DL (1.6-2.4); PHOSPHORUS 2.9 MG/DL (2.3-4.7); POTASSIUM 4.5 MMOL/L (3.6-5.0); SODIUM 137 MMOL/L (135-145)
[2018-11-30 03:44] LABS: ABG BASE EXCESS -4.3 MMOL/L (-2.5-2.5); ABG OXYGEN SATURATION 97 % (94-100); ABG PCO2 35 MMHG (35-45); ABG PH 7.37 (7.37-7.43); ABG PO2 86 MMHG (79-93); ABG TCO2 21.2 MMOL/L (21.0-31.0)
[2018-11-30 03:45] LABS: ALLENS TEST YES-POS; INSPIRED O2 40%; PATIENT TEMP 97.8; VENTILATOR YES
[2018-11-30] MEDS: MAGNESIUM 1 GM/100 ML IVPB 100 ML IV SCH (04:07)
[2018-11-30] MEDS: inSUlin ASPART (NovoLOG) 1 UNIT/0.01 ML (CHARGE PER UNIT) SC SCH ×3 (04:07→18:04)
[2018-11-30] MEDS: KCL 20 MEQ TAB (K-DUR) PO SCH (04:07)
--- NOTE | 2018-11-30 05:11 | Pulmonary Progress Note ---
Subjective Time Seen by a Provider: 08:34 Subjective/Events-last exam Sedated on vent Sepsis Event Evaluation Height, Weight, BMI Height: 5'10.00" Weight: 220lbs. 0.0oz. 99.730949fo; 31.0 BMI Method:Stated Focused Exam Lactate Level 11/28/18 11:15: Lactic Acid Level 3.91*H 11/28/18 13:52: Lactic Acid Level 3.54*H 11/29/18 03:18: Lactic Acid Level 2.00 Exam Exam Vital Signs Date Time Temp Pulse Resp B/P (MAP) Pulse Ox O2 Delivery O2 Flow Rate FiO2 11/30/18 03:05 97.8 Mechanical Ventilator 40.00 11/30/18 03:05 100 Mechanical Ventilator 40 11/30/18 03:00 63 21 127/95 (106) 100 Mechanical Ventilator 40.00 108/80 (89) 11/30/18 02:23 60 21 100 Mechanical Ventilator 40.00 96/72 (80) 11/30/18 02:20 60 22 100 70 11/30/18 02:00 60 21 122/88 (99) 100 Mechanical Ventilator 50.00 96/73 (81) 11/30/18 01:00 61 21 126/92 (103) 100 Mechanical Ventilator 50.00 101/80 (87) 11/30/18 01:00 61 11/30/18 00:00 62 21 116/86 (96) 100 Mechanical Ventilator 50.00 105/75 (85) 11/29/18 23:43 Mechanical Ventilator 50.00 11/29/18 23:40 97.8 Mechanical Ventilator 50.00 11/29/18 23:35 100 Mechanical Ventilator 50 11/29/18 23:00 64 31 104/74 (84) 100 Mechanical Ventilator 50.00 94/66 (75) 11/29/18 22:26 Mechanical Ventilator 50.00 11/29/18 22:24 68 22 100 70 11/29/18 22:00 75 21 137/99 (112) 100 Mechanical Ventilator 70.00 123/95 (104) 11/29/18 21:00 75 20 135/109 (118) 100 Mechanical Ventilator 70.00 125/99 (108) 11/29/18 20:07 59 21 103/74 100 Mechanical Ventilator 70.00 11/29/18 20:00 62 22 111/84 (93) 100 Mechanical Ventilator 70.00 104/78 (87) 11/29/18 19:45 100 Mechanical Ventilator 70 11/29/18 19:35 96.8 60 21 94/68 (77) 100 Mechanical Ventilator 70.00 11/29/18 19:00 61 11/29/18 19:00 61 21 103/73 (83) 100 Mechanical Ventilator 80.00 93/68 (76) 11/29/18 18:17 63 22 100 70 11/29/18 18:00 64 22 105/71 (82) 100 Mechanical Ventilator 80.00 11/29/18 17:00 67 30 101/78 (86) 100 Mechanical Ventilator 80.00 11/29/18 16:36 84 28 143/98 100 Mechanical Ventilator 80.00 11/29/18 16:00 100 Mechanical Ventilator 80 11/29/18 16:00 63 21 83/57 (66) 100 Mechanical Ventilator 80.00 11/29/18 15:50 96.2 11/29/18 14:29 87 29 80 11/29/18 14:00 69 21 75/59 (64) 100 Mechanical Ventilator 80.00 11/29/18 13:00 83 22 116/79 (91) 100 Mechanical Ventilator 80.00 11/29/18 13:00 83 11/29/18 12:03 108/68 11/29/18 12:00 87 17 101/69 (80) 100 Mechanical Ventilator 80.00 11/29/18 12:00 95 Mechanical Ventilator 80 11/29/18 11:25 96.8 11/29/18 11:00 93 17 101/63 (76) 100 Mechanical Ventilator 70.00 11/29/18 10:00 109 15 186/95 (125) 96 Mechanical Ventilator 70.00 11/29/18 09:57 112 32 96 80 11/29/18 09:36 96.8 108 20 168/90 64 Mechanical Ventilator 80.00 11/29/18 09:00 112 16 135/74 (94) 96 Mechanical Ventilator 70.00 11/29/18 08:34 97.6 11/29/18 08:00 102 16 167/113 (131) 96 Mechanical Ventilator 70.00 11/29/18 08:00 95 Mechanical Ventilator 100 11/29/18 08:00 101 16 95 70 11/29/18 07:53 139/120 (126) Mechanical Ventilator 70.00 11/29/18 07:01 111 11/29/18 07:00 139/120 (126) Nasal Cannula 2.00 11/29/18 06:00 109 25 174/111 (132) 97 Nasal Cannula 2.00 I & O 11/30/18 07:00 Intake Total 3805 ml Output Total 2350 ml Balance 1455 ml Height & Weight Height: 5'10.00" Weight: 220lbs. 0.0oz. 99.360008ho; 31.0 BMI Method:Stated General Appearance: Chronically ill, Other (appears older than stated age, dishevelled) HEENT: Moist Mucous Membranes Neck: Normal Inspection, Other (bearded) Respiratory: Chest Non Tender, Lungs Clear, No Accessory Muscle Use, No Respiratory Distress, Wheezing Cardiovascular: Regular Rate, Rhythm, No Edema, No Gallop, No JVD, No Murmur, Normal Peripheral Pulses Capillary Refill: Less Than 3 Seconds Extremity: Normal Capillary Refill, No Calf Tenderness Neurologic/Psychiatric: Other (oriented to person and place, somewhat drowsy but easily agitated) Skin: Normal Color, Warm/Dry Results Lab Laboratory Tests 11/28/18 12:05 11/29/18 03:18 11/29/18 17:30 11/30/18 00:45 11/30/18 03:00 Assessment/Plan Assessment/Plan Acute respiratotry failure secondary to alcohol withdrawal treatment -Monitor Severe electrolyte disturbance -Replace Alcohol dependance with increased agitation through the night -Will proceed with intubation to safely give higher dose sedation. -MORENA protocol -Add precedex -RN reports pt had to be intubated during last hospitalization secondary to MORENA. Marijuana -Education Probable CARY -out pt testing Anemia -Monitor Tobacco Dependance ULYSSES MCFARLAND DO Nov 30, 2018 05:11
[2018-11-30] MEDS: LACTATED RINGERS 1,000 ML IV SCH ×2 (05:40→18:51)
[2018-11-30] MEDS: DEXMEDETOMIDINE INJECTION 1,000 MCG in NS (IVPB) 250 ML IV SCH (05:45)
[2018-11-30] MEDS: NICOTINE 14 MG (NICODERM) PATCH TD SCH (07:57)
[2018-11-30] MEDS: PANTOPRAZOLE 40 MG (PROTONIX) VIAL IV SCH (07:59)
[2018-11-30] MEDS: NICOTINE PATCH REMOVAL TP SCH (08:00)
[2018-11-30] MEDS: hydrOXYzine (VISTARIL/ATARAX) 25 MG capsule/tablet PO SCH ×4 (08:00→21:06)
[2018-11-30] MEDS ORDERED: CALCIUM GLUCONATE 10% INJ 4.65 MEQ in NS (IVPB) 50 ML IV ONE (08:00)
--- NOTE | 2018-11-30 08:20 | OPERATIVE REPORT ---
DATE OF SERVICE: 11/29/2018 PREOPERATIVE DIAGNOSIS: Venous insufficiency. POSTOPERATIVE DIAGNOSIS: Venous insufficiency. PROCEDURE: Insertion of right IJ triple lumen catheter with ultrasound guidance. SURGEON: Anthony Enriquez DO KEYSEATER OPERATOR: None. ANESTHESIA: Local lidocaine. BLOOD LOSS: Scant. FLUIDS: None. SPECIMENS: None. INDICATION FOR PROCEDURE: The patient is a 48-year-old male, who has been unable to get good IV access and he is going through withdrawals, needs a lot of IV medications and need more access. FINDINGS: The patient had a right IJ placed under ultrasound guidance, triple lumen catheter. PROCEDURE NOTE: This was an emergent procedure. The patient was sedated, but I had to talk to his significant other about placing it and it was approved. He was in the ICU bed. He was sterilely prepped and draped in normal fashion. First I checked with the ultrasound, found the right IJ and then infiltrated above this with local lidocaine as well as around for regional block and then using the ultrasound, I advanced the 18-gauge fine needle with negative inspiration and watched it penetrate the IJ. Good flash of blood, removed the syringe, placed a guidewire down the needle using Seldinger technique, it went in easily and checked with ultrasound to see if the guidewire was going down the internal jugular vein. At this point, I then made a stab incision along the guidewire with #11 blade and then over the guidewire placed a dilator using Seldinger technique, it went in easily, I removed this and then over the guidewire, I placed a catheter using the Seldinger technique. Again, it went in easily, I placed it to about 15 cm, removed the guidewire and then had placed locking ports on all 3 ports, then easily aspirated, got a good flash of blood and then flushed with saline. Sutured this, placed mechanism down to lock this in place and then sutured this to the skin at about the 15 cm artur with 3-0 silk suture, did this without any difficulty. The area was then cleaned and dried and I then placed a Biopatch under the catheter and then placed a Tegaderm dressing. The patient tolerated the procedure. Sponge and needle count correct at the end of the case. Job ID: [id number] DocumentID: [id number] Dictated Date: 11/30/2018 08:02:33 Metal Fabricator Apprentice Date: 11/30/2018 08:18:51 Dictated By: ANTHONY ENRIQUEZ DO
--- NOTE | 2018-11-30 08:27 | Diagnostic Imaging Report ---
Indication: Hypokalemia. Time of exam: 3:47 AM Correlation is made with prior study one day earlier. Support lines and catheters remain in place. Heart size is stable. There is subsegmental atelectasis in both bases. Mid and upper lung lucas are clear. No effusion or pneumothorax is seen. Impression: Stable chest since exam one day earlier. Dictated by: Dictated on workstation # [id number]
--- NOTE | 2018-11-30 08:49 | Physical Therapy Progress Note ---
Therapy Progress Note Patient currently intubated. Will check back this afternoon. NED BA PT Nov 30, 2018 08:49
[2018-11-30] MEDS: MIDAZOLAM INJECTION FOR DRIPS 50 MG in NS (IVPB) 90 ML IV SCH (09:34)
--- NOTE | 2018-11-30 09:37 | Progress Note - Hospitalist ---
Subjective HPI/CC On Admission Date Seen by Provider: Nov 30, 2018 Time Seen by Provider: 09:34 Pt is a 48yoCM who presented to the ER with a CC of falls and tingling in his feet. He relies a varying history and is a poor historian. He reports to me that it has been going on for 2 weeks and he knows of no precipitating event. He denies any alleviating or aggravating factors. He otherwise offers very little history. He complained of many things to the medical student and then denied them outright to me so HPI and ROS is quite convoluted. He does state that he has a "psych history" but when I asked what he had been diagnosed with he declined to tell me. He does endorse significant alcohol use. He drinks 1/5 per day and states his last drink was "about 10 seconds before being dropped off." Subjective/Events-last exam Pt remains intubated and sedated. ROS unable to be obtained. Discussed with RN and new onset hematuria. Started after advancement of sung catheter last night. Focused Exam Lactate Level 11/28/18 11:15: Lactic Acid Level 3.91*H 11/28/18 13:52: Lactic Acid Level 3.54*H 11/29/18 03:18: Lactic Acid Level 2.00 Objective Exam Vital Signs Vital Signs Date Time Temp Pulse Resp B/P (MAP) Pulse Ox O2 Delivery O2 Flow Rate FiO2 11/30/18 09:34 157/116 11/30/18 09:00 73 20 100 Mechanical Ventilator 30.00 11/30/18 08:27 96.8 11/30/18 08:00 30 Capillary Refill : Less Than 3 Seconds General Appearance: Chronically ill, Other (intubated/sedated) Respiratory: Rhonci, Other (intubated) Gastrointestinal: Normal Bowel Sounds, Non Tender, Soft Results/Procedures Lab Laboratory Tests 11/29/18 17:30 11/30/18 00:45 11/30/18 03:00 Patient resulted labs reviewed. Assessment/Plan Assessment and Plan Assess & Plan/Chief Complaint Alcohol Withdrawal Continue ativan, banana bag Consider Precedex and/or ativan gtt once intubated Acute Respiratory Failure Intubated- day 2 Severe hypokalemia - resolved Trend Severe hypomagnesemia - resolved Trend Macrocytic Anemia- stable Stable this AM, drop from presentation likely iatrogenic from dilution and blood draws B12 low- replacing, folate pending PPI HAGMA- resolved with fluid resuscitation Paresthesias in feet - likely due nutritional deficiency or alcoholic neuropathy FENGIPPx Lovenox held due to anemia/hematuria, SCDs NPO- dietary consult for tube feedings PPI Critical Care Critically Ill Patient Diagnosis/Problems Diagnosis/Problems (1) Alcohol abuse (2) Macrocytic anemia (3) Hypomagnesemia Status: Acute (4) Lactic acidosis Status: Acute (5) Hypokalemia Status: Acute (6) Dehydration Status: Acute (7) Metabolic acidosis Status: Acute (8) Schizoaffective disorder (9) Marijuana abuse (10) Hyperglycemia (11) Hypophosphatemia Clinical Quality Measures DVT/VTE Risk/Contraindication: Risk Factor Score Per Nursin RFS Level Per Nursing on Admit: 3=High KESHA STATON MD Nov 30, 2018 9:37 am
[2018-11-30] MEDS: DIVALPROEX 500 MG DELAYED RELEASE (DEPAKOTE) TAB PO SCH ×2 (09:38→21:06)
[2018-11-30] MEDS: THIAMINE INJECTION 100 MG, FOLIC ACID INJECTION 1 MG, MAGNESIUM SULFATE 2 GM, VITAMIN M... IV SCH ×5 (10:18)
--- NOTE | 2018-11-30 13:52 | Physical Therapy Progress Note ---
Therapy Progress Note Patient still intubated, will check back in the morning. NED BA PT Nov 30, 2018 13:52
[2018-11-30] MEDS: traZODone 150 MG (DESYREL) TABLET PO SCH (21:06)
[2018-11-30] MEDS: QUEtiapine 200 MG (SEROquel) TAB IMMEDIATE RELEASE PO SCH (21:06)
[2018-12-01] VITALS (30 sets, daily range): BP systolic 98–141; BP diastolic 73–110
[2018-12-01] MEDS: inSUlin ASPART (NovoLOG) 1 UNIT/0.01 ML (CHARGE PER UNIT) SC SCH ×4 (00:09→18:14)
[2018-12-01] MEDS: DEXMEDETOMIDINE INJECTION 1,000 MCG in NS (IVPB) 250 ML IV SCH ×2 (01:17→17:06)
[2018-12-01 03:59] LABS: BASOPHILS % (AUTO) 0 % (0-10); EOSINOPHILS # (AUTO) 0.1 10^3/uL (0.0-0.3); EOSINOPHILS % (AUTO) 1 % (0-10); HEMATOCRIT 26 % (40-54); HEMOGLOBIN 8.6 G/DL (13.3-17.7); LYMPHOCYTES # (AUTO) 1.4 X 10^3 (1.0-4.0); LYMPHOCYTES % (AUTO) 22 % (12-44); MEAN CORPUSCULAR HEMOGLOBIN 36 PG (25-34); MEAN CORPUSCULAR HGB CONC 33 G/DL (32-36); MEAN CORPUSCULAR VOLUME 111 FL (80-99); MEAN PLATELET VOLUME 9.8 FL (7.4-10.4); MONOCYTES # (AUTO) 0.6 X 10^3 (0.0-1.0); MONOCYTES % (AUTO) 10 % (0-12); NEUTROPHILS # (AUTO) 4.1 X 10^3 (1.8-7.8); NEUTROPHILS % (AUTO) 66 % (42-75); PLATELET COUNT 217 10^3/uL (130-400); RED CELL DISTRIBUTION WIDTH 17.6 % (10.0-14.5); WHITE BLOOD COUNT 6.2 10^3/uL (4.3-11.0)
[2018-12-01] MEDS: LORazepam INJ 2 MG/ML (ATIVAN) VIAL IV PRN (04:07)
[2018-12-01 04:25] LABS: BUN/CREATININE RATIO 5; CALCIUM 6.8 MG/DL (8.5-10.1); CARBON DIOXIDE 19 MMOL/L (21-32); CHLORIDE 109 MMOL/L (98-107); CREATININE SERUM 0.59 MG/DL (0.60-1.30); GFR ESTIMATED > 60; GLUCOSE 112 MG/DL (70-105); PHOSPHORUS 3.3 MG/DL (2.3-4.7); SODIUM 140 MMOL/L (135-145)
[2018-12-01 04:36] LABS: ABG BASE EXCESS -3.2 MMOL/L (-2.5-2.5); ABG OXYGEN SATURATION 90 % (94-100); ABG PCO2 32 MMHG (35-45); ABG PH 7.42 (7.37-7.43); ABG PO2 57 MMHG (79-93); ABG TCO2 21.7 MMOL/L (21.0-31.0)
[2018-12-01] MEDS: POTASSIUM CL 10MEQ/50ML IVPB 50 ML IV SCH (04:36)
[2018-12-01 04:37] LABS: ALLENS TEST YES-POS; INSPIRED O2 50%; VENTILATOR YES
[2018-12-01] MEDS: MAGNESIUM 1 GM/100 ML IVPB 100 ML IV SCH (04:37)
[2018-12-01] MEDS: KCL 20 MEQ TAB (K-DUR) PO SCH (04:37)
[2018-12-01] MEDS: PROPOFOL DRIP (ICU) 100 ML IV SCH ×5 (06:43→21:21)
--- NOTE | 2018-12-01 07:02 | Diagnostic Imaging Report ---
INDICATION: Hypokalemia Portable chest 3:12 AM There is an ET tube projecting over the trachea. NG tube enters the stomach. Right IJ central line tip projects over the SVC. There is some bilateral perihilar discoid atelectasis. There are no infiltrates, effusions or pneumothoraces. IMPRESSION: Perihilar atelectasis. No change from previous day. Dictated by: Dictated on workstation # [id number]
--- NOTE | 2018-12-01 07:17 | Progress Note - Hospitalist ---
JAVON MANRIQUEZ,MED STUDENT 12/01/18 0717: Subjective HPI/CC On Admission Date Seen by Provider: Dec 01, 2018 Pt is a 48yoCM who presented to the ER with a CC of falls and tingling in his feet. He relies a varying history and is a poor historian. He reports to me that it has been going on for 2 weeks and he knows of no precipitating event. He denies any alleviating or aggravating factors. He otherwise offers very little history. He complained of many things to the medical student and then denied them outright to me so HPI and ROS is quite convoluted. He does state that he has a "psych history" but when I asked what he had been diagnosed with he declined to tell me. He does endorse significant alcohol use. He drinks 1/5 per day and states his last drink was "about 10 seconds before being dropped off." Subjective/Events-last exam Patient is sedated, intubated and on ventilator. Focused Exam Lactate Level 11/28/18 11:15: Lactic Acid Level 3.91*H 11/28/18 13:52: Lactic Acid Level 3.54*H 11/29/18 03:18: Lactic Acid Level 2.00 Objective Exam Vital Signs Vital Signs Date Time Temp Pulse Resp B/P (MAP) Pulse Ox O2 Delivery O2 Flow Rate FiO2 12/01/18 10:00 64 22 122/94 (103) 98 Mechanical Ventilator 30.00 12/01/18 09:40 50 12/01/18 07:48 96.9 Capillary Refill : Less Than 3 Seconds General Appearance: No Apparent Distress, WD/WN, Obese Respiratory: Chest Non Tender, Lungs Clear Cardiovascular: Regular Rate, Rhythm, No Edema, No Gallop, No JVD, No Murmur, Normal Peripheral Pulses Extremity: Normal Inspection, No Pedal Edema Neurologic/Psychiatric: Other (patient is sedated and on a ventilator ) Skin: Normal Color, Warm/Dry Results/Procedures Lab Laboratory Tests 12/01/18 03:25 Patient resulted labs reviewed. Assessment/Plan Assessment and Plan Assess & Plan/Chief Complaint Severe hypokalemia - Resolved * continue to monitor Severe hypomagnesemia - Resolved * continue to monitor HAGMA on arrival with elevated lactic acid and alcohol ketoacidosis -- Resolved * HAGMA resulted with fluids * elevated lactic acid - resolved EtOH use disorder * gave banana bag - completed * follow CIWA protocol Macrocytic Anemia - * checking B12 and folate - recheck * replace IV * likely some is dilutional Paresthesias in feet - likely due nutritional deficiency or alcoholic neuropathy * recheck in morning washtub worker consult for alcoholism FENGIPPx * fluids = 1/2 NS @ 50ml/hr * Electrolytes = see above * Nutrition = tube feedings and vitamin supplementation * GI PPx = PPI and carafate b/c pt has been on vent for >48hrs * PPX = SCDs and blood thinners Clinical Quality Measures DVT/VTE Risk/Contraindication: Risk Factor Score Per Nursin RFS Level Per Nursing on Admit: 3=High KESHA PARKS MD 12/01/18 2147: Subjective HPI/CC On Admission Time Seen by Provider: 08:30 Objective Exam General Appearance: Chronically ill Respiratory: Other (intubated) Neurologic/Psychiatric: Other (patient is sedated and on a ventilator ) Assessment/Plan Assessment and Plan Assess & Plan/Chief Complaint Maintain mechanical ventilation pet Dr Mai. Continue CIIA protocol. Will need social work lecturer consult when extubated. B12 deficiency, replace. Trend H&H but start Lovenox as hemoglobin trending up. Supervisory-Addendum Brief Verification & Attestation Participated in pt care: history, MDM, physical Personally performed: exam, history, MDM, supervision of care Care discussed with: Medical Student Procedures: n/a Results interpretation: Verified all documentation Verification and Attestation of Medical Student E/M Service A medical student performed and documented this service in my presence. I reviewed and verified all information documented by the medical student and made modifications to such information, when appropriate. I personally performed the physical exam and medical decision making. Kesha Parks, Dec 01, 2018,21:47 JAVON MANRIQUEZ,MED STUDENT Dec 01, 2018 07:17 KESHA PARKS MD Dec 01, 2018 21:47
[2018-12-01] MEDS: PANTOPRAZOLE 40 MG (PROTONIX) VIAL IV SCH (08:07)
[2018-12-01] MEDS: NICOTINE 14 MG (NICODERM) PATCH TD SCH (08:07)
[2018-12-01] MEDS: DIVALPROEX 500 MG DELAYED RELEASE (DEPAKOTE) TAB PO SCH ×2 (08:07→21:17)
[2018-12-01] MEDS: MIDAZOLAM INJECTION FOR DRIPS 50 MG in NS (IVPB) 90 ML IV SCH (08:07)
[2018-12-01] MEDS ORDERED: 1/2 NS IV SOLUTION 1,000 ML IV ONE (08:07)
[2018-12-01] MEDS: NICOTINE PATCH REMOVAL TP SCH (08:07)
[2018-12-01] MEDS: hydrOXYzine (VISTARIL/ATARAX) 25 MG capsule/tablet PO SCH ×4 (08:07→21:22)
[2018-12-01] MEDS: LACTATED RINGERS 1,000 ML IV SCH (08:10)
--- NOTE | 2018-12-01 08:11 | Physical Therapy Progress Note ---
Therapy Progress Note Patient remains sedated and on mechanical ventilator. PT to continue to monitor patient status. CHRISTINA DEY PT Dec 01, 2018 08:11
[2018-12-01] MEDS: 1/2 NS IV SOLUTION 1,000 ML IV SCH ×2 (08:14→21:23)
--- NOTE | 2018-12-01 08:37 | Pulmonary Progress Note ---
Subjective Time Seen by a Provider: 08:36 Subjective/Events-last exam Pt is sedated on vent. No complications noted. Sepsis Event Evaluation Height, Weight, BMI Height: 5'10.00" Weight: 230lbs. 5.6oz. 104.207692rg; 31.0 BMI Method:Stated Focused Exam Lactate Level 11/28/18 11:15: Lactic Acid Level 3.91*H 11/28/18 13:52: Lactic Acid Level 3.54*H 11/29/18 03:18: Lactic Acid Level 2.00 Exam Exam Vital Signs Date Time Temp Pulse Resp B/P (MAP) Pulse Ox O2 Delivery O2 Flow Rate FiO2 12/01/18 08:07 133/100 12/01/18 08:00 65 21 119/91 (100) 99 Mechanical Ventilator 30.00 12/01/18 07:48 96.9 12/01/18 07:00 66 23 128/97 (107) 97 Mechanical Ventilator 30.00 12/01/18 07:00 65 12/01/18 06:43 Mechanical Ventilator 30.00 12/01/18 06:00 65 21 120/92 (101) 97 Mechanical Ventilator 30.00 12/01/18 05:05 Mechanical Ventilator 30.00 12/01/18 05:00 66 21 115/86 (96) 98 Mechanical Ventilator 50.00 12/01/18 04:00 76 19 118/97 (104) 92 Mechanical Ventilator 50.00 12/01/18 03:40 90 Mechanical Ventilator 50 12/01/18 03:37 98.4 Mechanical Ventilator 50.00 12/01/18 03:35 77 30 93 50 12/01/18 03:00 70 22 132/100 (111) 98 Mechanical Ventilator 24.00 12/01/18 02:00 73 16 137/106 (116) 97 Mechanical Ventilator 24.00 12/01/18 01:36 68 21 126/98 (107) 98 Mechanical Ventilator 24.00 12/01/18 01:23 65 22 98 28 12/01/18 01:00 66 21 123/91 (102) 99 Mechanical Ventilator 30.00 12/01/18 01:00 66 12/01/18 00:00 65 22 124/94 (104) 99 Mechanical Ventilator 30.00 11/30/18 23:55 97.1 Mechanical Ventilator 30.00 11/30/18 23:55 99 Mechanical Ventilator 30 11/30/18 23:00 64 21 111/86 (94) 98 Mechanical Ventilator 30.00 11/30/18 22:54 114/87 Mechanical Ventilator 30.00 11/30/18 22:00 66 21 120/99 (106) 99 Mechanical Ventilator 30.00 11/30/18 21:59 66 23 99 30 11/30/18 21:00 66 22 111/86 (94) 98 Mechanical Ventilator 30.00 11/30/18 20:00 70 21 129/101 (110) 99 Mechanical Ventilator 30.00 11/30/18 19:30 99 Mechanical Ventilator 30 11/30/18 19:28 Mechanical Ventilator 30.00 11/30/18 19:20 97.0 65 22 113/86 (95) 98 Mechanical Ventilator 30.00 11/30/18 19:00 65 11/30/18 19:00 65 21 108/82 (91) 98 Mechanical Ventilator 30.00 11/30/18 18:00 65 22 99 30 11/30/18 18:00 67 21 98 Mechanical Ventilator 30.00 105/82 (90) 11/30/18 17:00 69 19 100 Mechanical Ventilator 30.00 119/95 (103) 11/30/18 16:08 126/100 11/30/18 16:00 68 26 100 Mechanical Ventilator 30.00 121/96 (104) 11/30/18 15:52 100 Mechanical Ventilator 30 11/30/18 15:00 66 22 99 Mechanical Ventilator 30.00 114/89 (97) 11/30/18 14:00 65 21 97 Mechanical Ventilator 30.00 110/86 (94) 11/30/18 13:48 67 24 97 30 11/30/18 13:00 71 15 99 Mechanical Ventilator 30.00 135/105 (115) 11/30/18 12:48 140/109 11/30/18 12:40 66 11/30/18 12:00 100 Mechanical Ventilator 30 11/30/18 12:00 62 21 137/95 (109) 100 Mechanical Ventilator 30.00 117/87 (97) 11/30/18 11:00 65 22 142/101 (115) 100 Mechanical Ventilator 30.00 121/96 (104) 11/30/18 10:12 67 22 100 30 11/30/18 10:00 68 21 154/109 (124) 100 Mechanical Ventilator 30.00 131/104 (113) 11/30/18 09:34 157/116 11/30/18 09:00 73 20 167/124 (138) 100 Mechanical Ventilator 30.00 146/116 (126) I & O 12/01/18 07:00 Intake Total 2840 ml Output Total 2575 ml Balance 265 ml Height & Weight Height: 5'10.00" Weight: 230lbs. 5.6oz. 104.264275fy; 31.0 BMI Method:Stated General Appearance: Chronically ill, Other (appears older than stated age, dishevelled) HEENT: Moist Mucous Membranes Neck: Normal Inspection, Other (bearded) Respiratory: Chest Non Tender, Lungs Clear, No Accessory Muscle Use, No Respiratory Distress, Wheezing Cardiovascular: Regular Rate, Rhythm, No Edema, No Gallop, No JVD, No Murmur, N ormal Peripheral Pulses Capillary Refill: Less Than 3 Seconds Extremity: Normal Capillary Refill, No Calf Tenderness Neurologic/Psychiatric: Other (oriented to person and place, somewhat drowsy but easily agitated) Skin: Normal Color, Warm/Dry Results Lab Laboratory Tests 11/29/18 17:30 11/30/18 00:45 11/30/18 03:00 12/01/18 03:25 Assessment/Plan Assessment/Plan Acute respiratotry failure secondary to alcohol withdrawal treatment -Monitor -Will plan on weaning vent tomorrow morning Severe electrolyte disturbance -Replace Alcohol dependance with increased agitation through the night -MORENA protocol - precedex -RN reports pt had to be intubated during last hospitalization secondary to MORENA. Marijuana -Education Probable CARY -out pt testing Anemia -Monitor Tobacco Dependance ULYSSES MCFARLAND DO Dec 01, 2018 08:37
[2018-12-01] MEDS: ENOXAPARIN 40 MG/0.4 ML (LOVENOX) SYR SQ SCH (09:21)
[2018-12-01] MEDS: MULTIVITAMINS LIQUID 15 ML UDC PO SCH (09:21)
[2018-12-01] MEDS: CYANOCOBALAMIN 1,000 MCG (VITAMIN B-12) TABLET PO SCH (09:22)
--- NOTE | 2018-12-01 12:24 | NUR ---
DR STATON INFORMED OF PT'S ELEVATED BP'S--NO NEW ORDERS RECEIVED.
--- NOTE | 2018-12-01 15:21 | NUR ---
SPUTUM CULTURE RESULTS SENT TO DR STATON
[2018-12-01] MEDS: QUEtiapine 200 MG (SEROquel) TAB IMMEDIATE RELEASE PO SCH (21:17)
[2018-12-01] MEDS: traZODone 150 MG (DESYREL) TABLET PO SCH (21:17)
[2018-12-02] VITALS (24 sets, daily range): BP systolic 92–173; BP diastolic 70–157
[2018-12-02] MEDS: PROPOFOL DRIP (ICU) 100 ML IV SCH ×3 (00:17→05:51)
[2018-12-02] MEDS: inSUlin ASPART (NovoLOG) 1 UNIT/0.01 ML (CHARGE PER UNIT) SC SCH ×5 (00:51→23:55)
[2018-12-02 04:08] LABS: ABG BASE EXCESS -3.3 MMOL/L (-2.5-2.5); ABG OXYGEN SATURATION 98 % (94-100); ABG PCO2 32 MMHG (35-45); ABG PH 7.43 (7.37-7.43); ABG PO2 96 MMHG (79-93); ABG TCO2 21.5 MMOL/L (21.0-31.0); BASOPHILS % (AUTO) 0 % (0-10); EOSINOPHILS # (AUTO) 0.1 10^3/uL (0.0-0.3); EOSINOPHILS % (AUTO) 1 % (0-10); HEMATOCRIT 27 % (40-54); HEMOGLOBIN 8.8 G/DL (13.3-17.7); LYMPHOCYTES # (AUTO) 1.3 X 10^3 (1.0-4.0); LYMPHOCYTES % (AUTO) 20 % (12-44); MEAN CORPUSCULAR HEMOGLOBIN 36 PG (25-34); MEAN CORPUSCULAR HGB CONC 33 G/DL (32-36); MEAN CORPUSCULAR VOLUME 110 FL (80-99); MEAN PLATELET VOLUME 10.3 FL (7.4-10.4); MONOCYTES # (AUTO) 0.7 X 10^3 (0.0-1.0); MONOCYTES % (AUTO) 11 % (0-12); NEUTROPHILS # (AUTO) 4.3 X 10^3 (1.8-7.8); NEUTROPHILS % (AUTO) 68 % (42-75); PLATELET COUNT 207 10^3/uL (130-400); RED CELL DISTRIBUTION WIDTH 17.6 % (10.0-14.5); WHITE BLOOD COUNT 6.3 10^3/uL (4.3-11.0)
[2018-12-02 04:09] LABS: ALLENS TEST POSITIVE
[2018-12-02 04:10] LABS: INSPIRED O2 60; PATIENT TEMP 97.2; VENTILATOR YES
[2018-12-02 04:27] LABS: BUN/CREATININE RATIO 7; CALCIUM 6.8 MG/DL (8.5-10.1); CARBON DIOXIDE 19 MMOL/L (21-32); CHLORIDE 107 MMOL/L (98-107); CREATININE SERUM 0.58 MG/DL (0.60-1.30); GFR ESTIMATED > 60; GLUCOSE 101 MG/DL (70-105); MAGNESIUM 1.4 MG/DL (1.6-2.4); PHOSPHORUS 4.1 MG/DL (2.3-4.7); POTASSIUM 3.9 MMOL/L (3.6-5.0); SODIUM 138 MMOL/L (135-145)
[2018-12-02] MEDS: POTASSIUM CL 10MEQ/50ML IVPB 50 ML IV SCH ×6 (05:11→10:34)
[2018-12-02] MEDS: KCL 20 MEQ TAB (K-DUR) PO SCH (05:11)
[2018-12-02] MEDS ORDERED: MAGNESIUM 1 GM/100 ML IVPB 100 ML IV ONE (05:15)
[2018-12-02] MEDS: DEXMEDETOMIDINE INJECTION 1,000 MCG in NS (IVPB) 250 ML IV SCH ×2 (05:16→16:00)
[2018-12-02] MEDS: MAGNESIUM 1 GM/100 ML IVPB 100 ML IV SCH (05:16)
[2018-12-02] MEDS: LACTATED RINGERS 1,000 ML IV SCH ×2 (05:17→14:04)
[2018-12-02] MEDS: FOLIC ACID 1 MG TAB PO SCH (05:54)
[2018-12-02] MEDS: MULTIVITAMINS LIQUID 15 ML UDC PO SCH (05:54)
[2018-12-02] MEDS: CYANOCOBALAMIN 1,000 MCG (VITAMIN B-12) TABLET PO SCH (05:54)
[2018-12-02] MEDS: NICOTINE 14 MG (NICODERM) PATCH TD SCH (07:42)
[2018-12-02] MEDS: PANTOPRAZOLE 40 MG (PROTONIX) VIAL IV SCH (07:42)
[2018-12-02] MEDS: NICOTINE PATCH REMOVAL TP SCH (07:43)
[2018-12-02] MEDS: hydrOXYzine (VISTARIL/ATARAX) 25 MG capsule/tablet PO SCH ×4 (07:43→20:18)
[2018-12-02] MEDS: ENOXAPARIN 40 MG/0.4 ML (LOVENOX) SYR SQ SCH (07:44)
[2018-12-02] MEDS: MIDAZOLAM INJECTION FOR DRIPS 50 MG in NS (IVPB) 90 ML IV SCH (07:48)
--- NOTE | 2018-12-02 07:58 | Diagnostic Imaging Report ---
INDICATION: Intubated, infiltrate. COMPARISON: 12/01/2018. FINDINGS: Single view of the chest demonstrates increasing left hilar infiltrate. The right lung is stable. There is no overt pulmonary edema. Small effusion is seen in the left. There is no pneumothorax. Support lines are stable. IMPRESSION: Increasing left hilar infiltrate. Dictated by: Dictated on workstation # [id number]
--- NOTE | 2018-12-02 08:15 | NUR ---
PT EXTUBATED AND RESTRAINTS REMOVED AT THIS TIME.PLACED ON VAPOTHERM AT 30L 45%
--- NOTE | 2018-12-02 08:20 | Physical Therapy Progress Note ---
Therapy Progress Note Patient remains on ventilator. PT to continue to monitor patient status. CHRISTINA DEY PT Dec 02, 2018 08:20
--- NOTE | 2018-12-02 08:20 | Pulmonary Progress Note ---
Subjective Time Seen by a Provider: 08:25 Subjective/Events-last exam Sedated on vent Sepsis Event Evaluation Height, Weight, BMI Height: 5'10.00" Weight: 224lbs. 4.0oz. 101.557470nk; 31.0 BMI Method:Stated Exam Exam Vital Signs Date Time Temp Pulse Resp B/P (MAP) Pulse Ox O2 Delivery O2 Flow Rate FiO2 12/02/18 08:00 96 22 171/116 (134) 94 Mechanical Ventilator 40.00 12/02/18 07:54 93 Mechanical Ventilator 40 12/02/18 07:50 97.6 12/02/18 07:00 86 12/02/18 07:00 66 20 102/75 (84) 97 Mechanical Ventilator 40.00 12/02/18 06:57 65 22 99 40 12/02/18 06:00 65 21 127/98 (108) 100 Mechanical Ventilator 40.00 12/02/18 05:51 64 22 116/95 99 Mechanical Ventilator 40.00 12/02/18 05:00 66 22 106/88 (94) 98 Mechanical Ventilator 40.00 12/02/18 04:50 90 Mechanical Ventilator 50 12/02/18 04:00 80 18 126/110 (115) 97 Mechanical Ventilator 40.00 12/02/18 03:00 66 23 117/95 (102) 99 Mechanical Ventilator 40.00 12/02/18 02:58 67 22 114/92 98 60.00 12/02/18 02:38 66 22 100 40 12/02/18 02:00 67 22 117/93 (101) 100 Mechanical Ventilator 60.00 12/02/18 01:00 67 23 120/91 (101) 100 Mechanical Ventilator 60.00 12/02/18 01:00 67 12/02/18 00:37 96.1 12/02/18 00:28 90 Mechanical Ventilator 50 12/02/18 00:17 68 23 116/93 100 Mechanical Ventilator 80.00 12/02/18 00:00 67 21 122/91 (101) 100 Mechanical Ventilator 80.00 12/01/18 23:00 69 22 100/73 (82) 100 Mechanical Ventilator 80.00 12/01/18 22:04 Mechanical Ventilator 80.00 12/01/18 22:00 72 19 115/89 (98) 100 Mechanical Ventilator 100.00 12/01/18 21:33 Mechanical Ventilator 100.00 12/01/18 21:21 77 31 137/104 90 Mechanical Ventilator 40.00 12/01/18 21:19 Mechanical Ventilator 40.00 12/01/18 21:10 76 32 92 60 12/01/18 21:00 74 18 110/82 (91) 100 Mechanical Ventilator 30.00 12/01/18 20:50 97.2 12/01/18 20:05 90 Mechanical Ventilator 50 12/01/18 20:00 97.4 12/01/18 20:00 70 20 98/77 (84) 96 Mechanical Ventilator 30.00 12/01/18 19:00 71 12/01/18 19:00 70 21 111/87 (95) 95 Mechanical Ventilator 30.00 12/01/18 18:00 71 19 126/97 (107) 96 Mechanical Ventilator 30.00 12/01/18 17:00 71 21 118/88 (98) 97 Mechanical Ventilator 30.00 12/01/18 16:14 138/111 12/01/18 16:00 75 20 134/108 (117) 98 Mechanical Ventilator 30.00 12/01/18 16:00 96.8 12/01/18 15:28 90 Mechanical Ventilator 50 12/01/18 15:00 73 19 141/110 (120) 97 Mechanical Ventilator 30.00 12/01/18 14:40 72 24 99 50 12/01/18 14:00 72 18 140/109 (119) 99 Mechanical Ventilator 30.00 12/01/18 13:00 71 16 141/110 (120) 100 Mechanical Ventilator 30.00 12/01/18 12:43 149/118 12/01/18 12:20 68 12/01/18 12:00 68 21 133/104 (114) 99 Mechanical Ventilator 30.00 12/01/18 12:00 96.4 12/01/18 11:03 90 Mechanical Ventilator 50 12/01/18 11:00 66 22 132/100 (111) 99 Mechanical Ventilator 30.00 12/01/18 10:00 64 22 122/94 (103) 98 Mechanical Ventilator 30.00 12/01/18 09:40 64 22 100 50 12/01/18 09:23 122/94 12/01/18 09:00 64 22 120/93 (102) 99 Mechanical Ventilator 30.00 I & O 12/02/18 07:00 Intake Total 3870 ml Output Total 2250 ml Balance 1620 ml Height & Weight Height: 5'10.00" Weight: 224lbs. 4.0oz. 101.934135du; 31.0 BMI Method:Stated General Appearance: Chronically ill, Other (sedated on vent) HEENT: Moist Mucous Membranes Neck: Normal Inspection, Other (bearded) Respiratory: Other (intubated) Cardiovascular: Regular Rate, Rhythm, No Edema, No Gallop, No JVD, No Murmur, Normal Peripheral Pulses Capillary Refill: Less Than 3 Seconds Extremity: Normal Inspection, No Pedal Edema Neurologic/Psychiatric: Other (patient is sedated and on a ventilator ) Skin: Normal Color, Warm/Dry Results Lab Laboratory Tests 12/01/18 03:25 12/02/18 03:53 Assessment/Plan Assessment/Plan Acute respiratotry failure secondary to alcohol withdrawal treatment -Monitor -Will wake pt up and extubate today -Check BNP -Will give lasix 40mg x 1 - Severe electrolyte disturbance -Replace MRSA pneumonia -Will start Vanco Alcohol dependance with increased agitation through the night -MORENA protocol - precedex -RN reports pt had to be intubated during last hospitalization secondary to MORENA. Marijuana -Education Probable CARY -out pt testing Anemia -Monitor Tobacco Dependance ULYSSES MCFARLAND DO Dec 02, 2018 08:20
[2018-12-02] MEDS ORDERED: PHARMACY TO DOSE IV SCH (08:30)
[2018-12-02] MEDS ORDERED: MAGNESIUM 1 GM/100 ML IVPB 100 ML IV NR (08:30)
[2018-12-02] MEDS ORDERED: FUROSEMIDE 40 MG/4 ML INJ (LASIX) IVP ONE (08:30)
--- NOTE | 2018-12-02 08:44 | Progress Note - Hospitalist ---
Subjective HPI/CC On Admission Date Seen by Provider: Dec 02, 2018 Time Seen by Provider: 07:45 Pt is a 48yoCM who presented to the ER with a CC of falls and tingling in his feet. He relies a varying history and is a poor historian. He reports to me that it has been going on for 2 weeks and he knows of no precipitating event. He denies any alleviating or aggravating factors. He otherwise offers very little history. He complained of many things to the medical student and then denied them outright to me so HPI and ROS is quite convoluted. He does state that he has a "psych history" but when I asked what he had been diagnosed with he declined to tell me. He does endorse significant alcohol use. He drinks 1/5 per day and states his last drink was "about 10 seconds before being dropped off." Subjective/Events-last exam Pt intubated and sedated. Unable to obtain ROS. RN reports increase mucus in ETT with suctioning. Objective Exam Vital Signs Vital Signs Date Time Temp Pulse Resp B/P (MAP) Pulse Ox O2 Delivery O2 Flow Rate FiO2 12/02/18 08:18 Vapotherm 45.00 30.00 12/02/18 08:00 96 22 171/116 (134) 94 12/02/18 07:54 40 12/02/18 07:50 97.6 Capillary Refill : Less Than 3 Seconds General Appearance: Chronically ill, Obese, Other (on vent) Respiratory: Other (on vent) Cardiovascular: Regular Rate, Rhythm, No Murmur Gastrointestinal: Normal Bowel Sounds, Soft Neurologic/Psychiatric: Other (sedated) Results/Procedures Lab Laboratory Tests 12/02/18 03:53 Patient resulted labs reviewed. Assessment/Plan Assessment and Plan Assess & Plan/Chief Complaint EtOH use disorder gave banana bag - completed follow CIWA protocol Acute Respiratory Failure Plan for extubation today Pulm consulted, appreciate recs Severe hypokalemia - Resolved Severe hypomagnesemia - Resolved HAGMA - Resolved Macrocytic Anemia - stable B12 low- replacing Folate low- replacing Paresthesias in feet - likely due nutritional deficiency or alcoholic neuropathy jig worker consult for alcoholism FENGIPPx * fluids = 1/2 NS @ 50ml/hr * NPO until dysphagia screen * GI PPx = PPI * PPX = Lovenox Critical Care Critically Ill Patient Diagnosis/Problems Diagnosis/Problems (1) Acute respiratory failure (2) Alcohol abuse (3) Macrocytic anemia (4) Hypomagnesemia Status: Acute (5) Lactic acidosis Status: Acute (6) Hypokalemia Status: Acute (7) Dehydration Status: Acute (8) Metabolic acidosis Status: Acute (9) Schizoaffective disorder (10) Marijuana abuse (11) Hyperglycemia (12) Hypophosphatemia Clinical Quality Measures DVT/VTE Risk/Contraindication: Risk Factor Score Per Nursin RFS Level Per Nursing on Admit: 3=High KESHA STATON MD Dec 02, 2018 8:44 am
[2018-12-02] MEDS ORDERED: VANCOMYCIN 2000 MG/NS 500 ML IVPB IV NR ×2 (08:45)
[2018-12-02] MEDS: HALOPERIDOL 5 MG/ML (HALDOL) AMP IM/IV PRN ×2 (09:41→16:08)
[2018-12-02] MEDS: RT-ALBUTEROL/IPRATROPIUM 3 ML (DUONEB) VIAL INH SCH ×3 (10:05→19:49)
--- NOTE | 2018-12-02 10:27 | Speech Therapy Progress Note ---
Therapy Progress Note ST attempt at Bedside Dysphagia Evaluation, patient was asleep and would not wake up for evaluation to be completed. ST to follow later this date. MARY SANZ Dec 02, 2018 10:27
[2018-12-02] MEDS: DIVALPROEX 500 MG DELAYED RELEASE (DEPAKOTE) TAB PO SCH ×2 (11:24→20:18)
--- NOTE | 2018-12-02 11:46 | Physical Therapy Progress Note ---
Therapy Progress Note Patient is off mechanical ventilator, however, sedated due to agitation and hallucinations. This PT consulted with RN on plan. PT will continue to monitor patient status and begin when medically stable and able to actively participate. CHRISTINA DEY PT Dec 02, 2018 11:46
--- NOTE | 2018-12-02 14:16 | ST Dysphagia Evaluation ---
Speech Evaluation-General Medical Diagnosis Alcohol Abuse Onset Date: Nov 27, 2018 Therapy Diagnosis Therapy Diagnosis: Oropharyngeal Dysphagia Precautions Precautions: Aspiration Precautions/Isolations: Contact Isolation, Aspiration, Droplet Isolation, Seizure, Fall Prevention Referral Referring Physician: Dr. Mai Reason for Referral: Evaluation/Treatment Medical History Pertinent Medical History: Alcoholism Alcoholism Current History Alcoholism Reviewed History: Yes Social History Home: Single Level Current Living Status: Significant Other Speech PLF/Current-Dysphagia Prior Level of Function The patient lived at home with significant other and family. He was independent for his daily needs at that time. Subjective The patient was cooperative with the Bedside Dysphagia Evaluation Oral Motor Skills Ability to Follow Directions: Fair Oral Expression Ability: Moderate Impairment Voice Voice Phonatory-Based Quality: Hoarse Voice Pitch: Mildly Low Voice Loudness: Mildly Soft/Quiet Face Facial Symmetry: Symmetrical Oral-Facial Assessment Oral-Facial Dentition: Normal Labial Seal Description: Normal Smile: Normal Puff Cheeks: Normal Lingual Protrusion: Normal Lingual ROM: Normal Lingual Strength: Normal Dysphagia Evaluation Consistencies Presented: Regular, Thin Liquid, Mechanical Soft, Pureed Oral phase within functional limits Pharyngeal phase within functional limits Dietary Recommendations: Regular Liquid Recommendations: Thin Swallowing Precautions: Alternate Liquids/Solids, Double Swallow, Liquids from Straw, Small Bites and Sips, Sitting Upright 90 Degrees, Sitting 90 Degrees 30 Post Intake Dysphagia Evaluation Summary The patient is a 48 year old man who was admitted via ED. He was intubated at that time due to medical status. The patient is an alcoholic and has been going through withdrawals while inpatient. He was extubated this date. The Bedside Dysphagia Evaluation was completed this afternoon while the patient was more alert and able to complete. He was presented 1/2 tsp sips of water x2 without difficulty. He also took small sips as verbally instructed x2 without difficulty. The patient also was given 1/2 tsp of puree, mechanical soft and small bite of cracker without difficulty. Oral and pharyngeal phases are within functional limits for all consistencies presented. The patient will be on a regular diet level with thin liquids. This information was provided for his nurse as well as written on the white board in his room. Barriers to Learning The patient has multiple mental diagnosis as well as alcohol and drug use. Speech-Plan Patient/Family Goals Patient/Family Goals: The patient plans on returning home with his family upon hospital discharge. Treatment Plan Speech Therapy Treatment Plan: Discontinue ST The patient does not warrant further ST services at this time. Treatment Duration: Dec 02, 2018 Frequency: 1 time per week Estimated Hrs Per Day: .25 hour per day Rehab Potential: Fair Barriers to Learning: Multiple mental diagnosis as well as alcohol and drug usage. Pt/Family Agrees to Plan: Yes Safety Risks/Education Teaching Recipient: Patient, Family, Significant Other Teaching Methods: Discussion Response to Teaching: Verbalize Understanding Education Topics Provided: Safety of oral intake Time Speech Therapy Time In: 13:15 Speech Therapy Time Out: 13:30 Total Billed Time: 15 Billed Treatment Time HarshalRAYNA BETHANIA ST Dec 02, 2018 14:16
[2018-12-02] MEDS: LORazepam INJ 2 MG/ML (ATIVAN) VIAL IV PRN ×3 (15:33→18:20)
[2018-12-02] MEDS: VANCOMYCIN 1,750 MG/NS 500 ML IVPB IV SCH ×2 (20:18)
[2018-12-02] MEDS: LORazepam 1 MG (ATIVAN) TAB PO PRN (20:18)
[2018-12-02] MEDS: QUEtiapine 200 MG (SEROquel) TAB IMMEDIATE RELEASE PO SCH (20:18)
[2018-12-02] MEDS: traZODone 150 MG (DESYREL) TABLET PO SCH (20:18)
[2018-12-03] VITALS (12 sets, daily range): BP systolic 122–167; BP diastolic 82–135
[2018-12-03] MEDS: DEXMEDETOMIDINE INJECTION 1,000 MCG in NS (IVPB) 250 ML IV SCH ×2
[2018-12-03] MEDS: LORazepam 1 MG (ATIVAN) TAB PO PRN (01:37)
[2018-12-03] MEDS: LORazepam INJ 2 MG/ML (ATIVAN) VIAL IV PRN ×3 (03:48→08:45)
[2018-12-03 03:51] LABS: BASOPHILS % (AUTO) 0 % (0-10); EOSINOPHILS % (AUTO) 0 % (0-10); HEMATOCRIT 25 % (40-54); HEMOGLOBIN 8.1 G/DL (13.3-17.7); LYMPHOCYTES # (AUTO) 1.4 X 10^3 (1.0-4.0); LYMPHOCYTES % (AUTO) 21 % (12-44); MEAN CORPUSCULAR HEMOGLOBIN 35 PG (25-34); MEAN CORPUSCULAR HGB CONC 33 G/DL (32-36); MEAN CORPUSCULAR VOLUME 107 FL (80-99); MEAN PLATELET VOLUME 10.1 FL (7.4-10.4); MONOCYTES # (AUTO) 0.9 X 10^3 (0.0-1.0); MONOCYTES % (AUTO) 13 % (0-12); NEUTROPHILS # (AUTO) 4.5 X 10^3 (1.8-7.8); NEUTROPHILS % (AUTO) 66 % (42-75); PLATELET COUNT 211 10^3/uL (130-400); RED CELL DISTRIBUTION WIDTH 16.9 % (10.0-14.5); WHITE BLOOD COUNT 6.8 10^3/uL (4.3-11.0)
[2018-12-03 04:14] LABS: BUN/CREATININE RATIO 7; CALCIUM 7.5 MG/DL (8.5-10.1); CARBON DIOXIDE 20 MMOL/L (21-32); CHLORIDE 107 MMOL/L (98-107); CREATININE SERUM 0.59 MG/DL (0.60-1.30); GFR ESTIMATED > 60; GLUCOSE 96 MG/DL (70-105); PHOSPHORUS 3.7 MG/DL (2.3-4.7); POTASSIUM 3.4 MMOL/L (3.6-5.0); SODIUM 140 MMOL/L (135-145); TRIGLYCERIDES 175 MG/DL (<150)
[2018-12-03 04:18] LABS: MAGNESIUM 1.1 MG/DL (1.6-2.4)
[2018-12-03] MEDS: POTASSIUM CL 10MEQ/50ML IVPB 50 ML IV SCH ×11 (04:20→18:12)
[2018-12-03] MEDS: MAGNESIUM 1 GM/100 ML IVPB 100 ML IV SCH ×7 (04:23→18:11)
[2018-12-03] MEDS: KCL 20 MEQ TAB (K-DUR) PO SCH (04:24)
[2018-12-03] MEDS: inSUlin ASPART (NovoLOG) 1 UNIT/0.01 ML (CHARGE PER UNIT) SC SCH ×3 (04:24→16:52)
[2018-12-03] MEDS ORDERED: POTASSIUM CL 10MEQ/50ML IVPB 50 ML IV SCH (07:00)
--- NOTE | 2018-12-03 07:11 | Diagnostic Imaging Report ---
Portable erect AP chest at 3:11. Indication: Respiratory distress. In the interval since the prior exam of 12/02/2018, the patient has been extubated and NG line has been removed. The central venous catheter on the right remains in good position. The heart itself is stable in size. However the left lung base does seem much better aerated. There is only a small amount of residual atelectasis/infiltrate still present in this area. The right infrahilar atelectasis/infiltrate seen previously is essentially no different. The mediastinum is prominent but unchanged when compared to the prior exam. The osseous structures are intact. Impression: 1. The appearance of the chest has improved considerably as the left lung base does seem much better aerated. A followup exam would be recommended for further study. 2. The patient has been extubated and the NG line has been removed. Dictated by: Dictated on workstation # [id number]
[2018-12-03] MEDS: MULTIVITAMINS LIQUID 15 ML UDC PO SCH (07:45)
[2018-12-03] MEDS: CYANOCOBALAMIN 1,000 MCG (VITAMIN B-12) TABLET PO SCH (07:45)
[2018-12-03] MEDS: FOLIC ACID 1 MG TAB PO SCH (07:46)
--- NOTE | 2018-12-03 07:57 | Progress Note - Hospitalist ---
Subjective HPI/CC On Admission Date Seen by Provider: Dec 03, 2018 Time Seen by Provider: 07:57 Pt is a 48yoCM who presented to the ER with a CC of falls and tingling in his feet. He relies a varying history and is a poor historian. He reports to me that it has been going on for 2 weeks and he knows of no precipitating event. He denies any alleviating or aggravating factors. He otherwise offers very little history. He complained of many things to the medical student and then denied them outright to me so HPI and ROS is quite convoluted. He does state that he has a "psych history" but when I asked what he had been diagnosed with he declined to tell me. He does endorse significant alcohol use. He drinks 1/5 per day and states his last drink was "about 10 seconds before being dropped off." Subjective/Events-last exam Pt sleepy but awakens easily. Denies any complaints. Discussed with RN and doing wel. Off CIWA protocol. Objective Exam Vital Signs Vital Signs Date Time Temp Pulse Resp B/P (MAP) Pulse Ox O2 Delivery O2 Flow Rate FiO2 12/03/18 09:00 97.3 12/03/18 08:09 98 Nasal Cannula 2.50 12/03/18 08:00 110 36 161/135 (144) 12/02/18 16:00 30 Capillary Refill : Less Than 3 Seconds General Appearance: Chronically ill, Obese Respiratory: Lungs Clear, No Respiratory Distress Cardiovascular: No Murmur, Tachycardia Gastrointestinal: Normal Bowel Sounds, Soft Extremity: No Pedal Edema Neurologic/Psychiatric: Alert, Other (drowsy but oriented to place and person) Skin: Tattoos/Piercings Results/Procedures Lab Laboratory Tests 12/03/18 03:26 12/03/18 03:36 Patient resulted labs reviewed. 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 manager social responsibility consulted Acute Respiratory Failure Extubated yesterday Pulm consulted, appreciate recs MRSA Pneumonia Continue on Vanc Hypokalemia Replace per protocol daily supplementation added Severe hypomagnesemia Replace per protocol Macrocytic Anemia - stable B12 low- replacing Folate low- replacing Paresthesias in feet - likely due nutritional deficiency or alcoholic neuropathy table worker consult for alcoholism FENGIPPx * fluids = 1/2 NS @ 50ml/hr * NPO until dysphagia screen * GI PPx = PPI * PPX = Lovenox Critical Care Critically Ill Patient Diagnosis/Problems Diagnosis/Problems (1) Acute respiratory failure (2) Alcohol abuse (3) Macrocytic anemia (4) Hypomagnesemia Status: Acute (5) Lactic acidosis Status: Acute (6) Hypokalemia Status: Acute (7) Dehydration Status: Acute (8) Metabolic acidosis Status: Acute (9) Schizoaffective disorder (10) Marijuana abuse (11) Hyperglycemia (12) Hypophosphatemia Clinical Quality Measures DVT/VTE Risk/Contraindication: Risk Factor Score Per Nursin RFS Level Per Nursing on Admit: 3=High KESHA STATON MD Dec 03, 2018 7:57 am
[2018-12-03] MEDS: RT-ALBUTEROL/IPRATROPIUM 3 ML (DUONEB) VIAL INH SCH ×4 (08:08→19:09)
--- NOTE | 2018-12-03 08:12 | Pulmonary Progress Note ---
Subjective Time Seen by a Provider: 08:11 Subjective/Events-last exam Pt is doing well respiratory sr off vent. He did receive Ativan per MORENA p rotocol last night. Sepsis Event Evaluation Height, Weight, BMI Height: 5'10.00" Weight: 215lbs. 0.4oz. 97.060851bp; 31.0 BMI Method:Stated Exam Exam Vital Signs Date Time Temp Pulse Resp B/P (MAP) Pulse Ox O2 Delivery O2 Flow Rate FiO2 12/03/18 07:58 112 12/03/18 06:00 98 24 155/107 (123) 91 Nasal Cannula 2.50 12/03/18 05:00 106 49 154/128 (137) 90 Nasal Cannula 2.50 12/03/18 04:00 95 21 128/103 (111) 98 Nasal Cannula 2.50 12/03/18 04:00 94 Nasal Cannula 2.50 12/03/18 03:54 99.0 12/03/18 03:00 101 22 143/90 (107) 95 Nasal Cannula 2.50 12/03/18 02:00 89 149/89 (109) 97 Nasal Cannula 2.50 12/03/18 01:00 93 40 163/117 (132) 93 Nasal Cannula 2.50 12/03/18 01:00 93 12/03/18 00:00 98.7 12/03/18 00:00 99 22 166/109 (128) 93 Nasal Cannula 2.50 12/03/18 00:00 94 Nasal Cannula 2.50 12/02/18 23:00 98 23 129/111 (117) 94 Nasal Cannula 2.50 12/02/18 22:00 90 26 166/70 (102) 92 Nasal Cannula 2.50 12/02/18 21:00 93 31 134/95 (108) 92 Nasal Cannula 2.50 12/02/18 20:03 93 Nasal Cannula 2.00 12/02/18 20:00 94 24 173/126 (142) 93 Nasal Cannula 2.50 12/02/18 20:00 98.6 12/02/18 20:00 94 Nasal Cannula 2.50 12/02/18 19:59 96 29 93 Nasal Cannula 2.50 12/02/18 19:48 89 18 112/105 (107) 91 Room Air 12/02/18 19:00 88 12/02/18 19:00 88 13 91 Room Air 12/02/18 18:00 93 29 162/131 (141) 92 Room Air 12/02/18 17:08 Room Air 12/02/18 17:00 89 7 91 Vapotherm 30.00 20.00 12/02/18 16:00 93 33 143/111 (122) 95 Vapotherm 30.00 20.00 12/02/18 16:00 95 High Flow N/C 20.00 30 12/02/18 15:00 103 26 173/157 (162) 92 Vapotherm 30.00 20.00 12/02/18 14:00 93 17 147/116 (126) 95 Vapotherm 30.00 20.00 12/02/18 13:00 26 164/112 (129) 94 Vapotherm 30.00 20.00 12/02/18 13:00 86 12/02/18 12:00 98.2 12/02/18 12:00 76 30 96 Vapotherm 30.00 20.00 12/02/18 11:28 95 High Flow N/C 20.00 30 12/02/18 11:00 73 28 124/81 (95) 93 Vapotherm 30.00 20.00 12/02/18 10:21 Vapotherm 30.00 20.00 12/02/18 10:08 95 Vapotherm 30.00 40 12/02/18 10:00 84 10 143/106 (118) 94 Vapotherm 45.00 30.00 12/02/18 09:00 78 25 131/91 (104) 92 Vapotherm 45.00 30.00 12/02/18 08:18 Vapotherm 45.00 30.00 I & O 12/03/18 07:00 Intake Total 2240 ml Output Total 9125 ml Balance -6885 ml Height & Weight Height: 5'10.00" Weight: 215lbs. 0.4oz. 97.122012gx; 31.0 BMI Method:Stated General Appearance: No Apparent Distress, Chronically ill, Obese HEENT: Moist Mucous Membranes Neck: Normal Inspection, Other (bearded) Respiratory: No Accessory Muscle Use, No Respiratory Distress, Decreased Breath Sounds Cardiovascular: Regular Rate, Rhythm, No Murmur Capillary Refill: Less Than 3 Seconds Extremity: Normal Inspection, No Pedal Edema Neurologic/Psychiatric: Other (sedated) Skin: Normal Color, Warm/Dry Results Lab Laboratory Tests 12/02/18 03:53 12/03/18 03:26 12/03/18 03:36 Assessment/Plan Assessment/Plan Acute respiratotry failure secondary to alcohol withdrawal treatment -Monitor -pt is doing well off vent. Severe electrolyte disturbance -Replace MRSA pneumonia - Vanco Alcohol dependance with increased agitation through the night -D/C MORENA protocol Marijuana -Education Probable CARY -out pt testing Anemia -Monitor Tobacco Dependance ULYSSES MCFARLAND DO Dec 03, 2018 08:12
[2018-12-03] MEDS: NICOTINE PATCH REMOVAL TP SCH (08:46)
[2018-12-03] MEDS: VANCOMYCIN 1,750 MG/NS 500 ML IVPB IV SCH ×4 (08:46→20:39)
[2018-12-03] MEDS: DIVALPROEX 500 MG DELAYED RELEASE (DEPAKOTE) TAB PO SCH ×2 (08:46→20:38)
[2018-12-03] MEDS: hydrOXYzine (VISTARIL/ATARAX) 25 MG capsule/tablet PO SCH (08:46)
[2018-12-03] MEDS: PANTOPRAZOLE 40 MG (PROTONIX) VIAL IV SCH (08:52)
[2018-12-03] MEDS: ENOXAPARIN 40 MG/0.4 ML (LOVENOX) SYR SQ SCH (08:58)
[2018-12-03] MEDS: HALOPERIDOL 5 MG (HALDOL) TAB PO SCH ×2 (08:58→20:38)
[2018-12-03] MEDS: NICOTINE 14 MG (NICODERM) PATCH TD SCH (08:58)
[2018-12-03] MEDS ORDERED: NON-FORMULARY MEDICATION 1 EA EA (Haloperidol 5 MG) PO SCH (09:00)
--- NOTE | 2018-12-03 12:58 | Physical Therapy Progress Note ---
Therapy Progress Note No PT evaluation this date. Nursing requested to allow Pt to sleep. INESSA GONZALES DPT Dec 03, 2018 12:58
[2018-12-03] MEDS: hydrOXYzine (VISTARIL/ATARAX) 25 MG capsule/tablet PO PRN (13:13)
[2018-12-03 16:19] LABS: BUN/CREATININE RATIO 3; CALCIUM 8.2 MG/DL (8.5-10.1); CARBON DIOXIDE 20 MMOL/L (21-32); CHLORIDE 107 MMOL/L (98-107); CREATININE SERUM 0.62 MG/DL (0.60-1.30); GFR ESTIMATED > 60; GLUCOSE 92 MG/DL (70-105); MAGNESIUM 1.7 MG/DL (1.6-2.4); POTASSIUM 3.5 MMOL/L (3.6-5.0); SODIUM 141 MMOL/L (135-145)
[2018-12-03] MEDS ORDERED: MAGNESIUM 1 GM/100 ML IVPB 200 ML IV ONE (18:02)
--- NOTE | 2018-12-03 18:57 | NUR ---
Continue to attempt to obtain accurate NIVBP with much difficulties. Pt restless in bed despite PRN med use. PO Metoprolol administered per order.
[2018-12-03] MEDS ORDERED: TROUGH ORDER-PHARMACY XX NR (19:00)
[2018-12-03] MEDS: traZODone 150 MG (DESYREL) TABLET PO SCH (20:38)
[2018-12-03] MEDS: QUEtiapine 200 MG (SEROquel) TAB IMMEDIATE RELEASE PO SCH (20:38)
[2018-12-03] MEDS ORDERED: traZODone 150 MG (DESYREL) TABLET PO SCH (21:00)
[2018-12-04] VITALS (7 sets, daily range): BP systolic 146–193; BP diastolic 102–131
[2018-12-04] MEDS: LORazepam INJ 2 MG/ML (ATIVAN) VIAL IV PRN ×3 (02:49→21:00)
[2018-12-04 03:04] LABS: BASOPHILS % (AUTO) 0 % (0-10); EOSINOPHILS % (AUTO) 1 % (0-10); HEMATOCRIT 27 % (40-54); HEMOGLOBIN 8.9 G/DL (13.3-17.7); LYMPHOCYTES # (AUTO) 1.5 X 10^3 (1.0-4.0); LYMPHOCYTES % (AUTO) 24 % (12-44); MEAN CORPUSCULAR HEMOGLOBIN 35 PG (25-34); MEAN CORPUSCULAR HGB CONC 33 G/DL (32-36); MEAN CORPUSCULAR VOLUME 106 FL (80-99); MEAN PLATELET VOLUME 9.8 FL (7.4-10.4); MONOCYTES # (AUTO) 1.1 X 10^3 (0.0-1.0); MONOCYTES % (AUTO) 18 % (0-12); NEUTROPHILS # (AUTO) 3.6 X 10^3 (1.8-7.8); NEUTROPHILS % (AUTO) 57 % (42-75); PLATELET COUNT 218 10^3/uL (130-400); RED CELL DISTRIBUTION WIDTH 16.4 % (10.0-14.5); WHITE BLOOD COUNT 6.3 10^3/uL (4.3-11.0)
[2018-12-04 03:28] LABS: BUN/CREATININE RATIO 3; CALCIUM 8.4 MG/DL (8.5-10.1); CARBON DIOXIDE 21 MMOL/L (21-32); CHLORIDE 106 MMOL/L (98-107); CREATININE SERUM 0.61 MG/DL (0.60-1.30); GFR ESTIMATED > 60; GLUCOSE 99 MG/DL (70-105); MAGNESIUM 2.1 MG/DL (1.6-2.4); PHOSPHORUS 4.5 MG/DL (2.3-4.7); POTASSIUM 3.4 MMOL/L (3.6-5.0); SODIUM 141 MMOL/L (135-145)
[2018-12-04] MEDS: HALOPERIDOL 5 MG/ML (HALDOL) AMP IM/IV PRN ×2 (04:12→17:35)
[2018-12-04] MEDS: inSUlin ASPART (NovoLOG) 1 UNIT/0.01 ML (CHARGE PER UNIT) SC SCH (04:27)
[2018-12-04] MEDS ORDERED: POTASSIUM CL 10MEQ/50ML IVPB 50 ML IV ONE (04:30)
--- NOTE | 2018-12-04 05:16 | Pulmonary Progress Note ---
Subjective Time Seen by a Provider: 05:16 Subjective/Events-last exam Pt has still been confused. Sepsis Event Evaluation Height, Weight, BMI Height: 5'10.00" Weight: 215lbs. 0.4oz. 97.042842lb; 31.0 BMI Method:Stated Exam Exam Vital Signs Date Time Temp Pulse Resp B/P (MAP) Pulse Ox O2 Delivery O2 Flow Rate FiO2 12/04/18 04:14 98.4 106 28 156/112 (127) 98 Nasal Cannula 2.00 12/03/18 23:59 97.8 112 24 122/82 (95) 90 Nasal Cannula 2.00 12/03/18 21:07 Nasal Cannula 2.00 12/03/18 20:08 99.4 12/03/18 19:09 94 Nasal Cannula 3.00 12/03/18 16:00 97.2 113 20 167/117 (134) 98 Nasal Cannula 2.50 12/03/18 15:24 100 Nasal Cannula 2.50 12/03/18 12:00 116 33 151/118 (129) 97 Nasal Cannula 2.50 12/03/18 12:00 98 Nasal Cannula 2.50 12/03/18 12:00 97.1 12/03/18 11:40 96 Nasal Cannula 2.50 12/03/18 09:00 97.3 12/03/18 08:09 98 Nasal Cannula 2.50 12/03/18 08:00 98 Nasal Cannula 2.50 12/03/18 08:00 110 36 161/135 (144) 94 Nasal Cannula 2.50 12/03/18 07:58 112 12/03/18 07:00 116 39 148/106 (120) 96 Nasal Cannula 2.50 12/03/18 06:00 98 24 155/107 (123) 91 Nasal Cannula 2.50 I & O 12/04/18 07:00 Intake Total 1470 ml Output Total 7150 ml Balance -5680 ml Height & Weight Height: 5'10.00" Weight: 215lbs. 0.4oz. 97.733045gp; 31.0 BMI Method:Stated General Appearance: Chronically ill, Obese HEENT: Moist Mucous Membranes Neck: Normal Inspection, Other (bearded) Respiratory: Lungs Clear, No Respiratory Distress Cardiovascular: No Murmur, Tachycardia Capillary Refill: Less Than 3 Seconds Extremity: No Pedal Edema Neurologic/Psychiatric: Alert, Other (drowsy but oriented to place and person) Skin: Tattoos/Piercings Results Lab Laboratory Tests 12/03/18 03:26 12/03/18 03:36 12/03/18 15:37 12/04/18 02:55 Assessment/Plan Assessment/Plan Acute respiratotry failure secondary to alcohol withdrawal treatment -Monitor -pt is doing well off vent. Severe electrolyte disturbance -Replace MRSA pneumonia - Vanco Alcohol dependance with increased agitation through the night -D/C [facility]NA protocol Marijuana -Education Probable CARY -out pt testing Anemia -Monitor Tobacco Dependance ULYSSES MCFARLAND DO Dec 04, 2018 05:16
[2018-12-04] MEDS: MAGNESIUM 1 GM/100 ML IVPB 100 ML IV SCH (06:00)
[2018-12-04] MEDS: KCL 20 MEQ TAB (K-DUR) PO SCH ×2 (06:00→06:01)
[2018-12-04] MEDS: MULTIVITAMINS LIQUID 15 ML UDC PO SCH (06:11)
[2018-12-04] MEDS: CYANOCOBALAMIN 1,000 MCG (VITAMIN B-12) TABLET PO SCH (06:11)
[2018-12-04] MEDS: FOLIC ACID 1 MG TAB PO SCH (06:11)
[2018-12-04] MEDS: POTASSIUM CL 10MEQ/50ML IVPB 50 ML IV SCH ×7 (06:12→07:59)
[2018-12-04] MEDS: hydrOXYzine (VISTARIL/ATARAX) 25 MG capsule/tablet PO PRN ×2 (07:40→21:00)
[2018-12-04] MEDS: PANTOPRAZOLE 40 MG (PROTONIX) VIAL IV SCH (07:40)
[2018-12-04] MEDS: NICOTINE 14 MG (NICODERM) PATCH TD SCH (07:40)
[2018-12-04] MEDS: DIVALPROEX 500 MG DELAYED RELEASE (DEPAKOTE) TAB PO SCH ×2 (07:40→21:00)
[2018-12-04] MEDS: ENOXAPARIN 40 MG/0.4 ML (LOVENOX) SYR SQ SCH (07:41)
[2018-12-04] MEDS: NICOTINE PATCH REMOVAL TP SCH (07:41)
[2018-12-04] MEDS: HALOPERIDOL 5 MG (HALDOL) TAB PO SCH ×2 (07:48→21:00)
[2018-12-04] MEDS ORDERED: TROUGH ORDER-PHARMACY XX NR (08:00)
[2018-12-04] MEDS: RT-ALBUTEROL/IPRATROPIUM 3 ML (DUONEB) VIAL INH SCH ×4 (08:34→18:28)
--- NOTE | 2018-12-04 11:03 | Progress Note - Hospitalist ---
Subjective HPI/CC On Admission Date Seen by Provider: Dec 04, 2018 Time Seen by Provider: 11:03 Pt is a 48yoCM who presented to the ER with a CC of falls and tingling in his feet. He relies a varying history and is a poor historian. He reports to me that it has been going on for 2 weeks and he knows of no precipitating event. He denies any alleviating or aggravating factors. He otherwise offers very little history. He complained of many things to the medical student and then denied them outright to me so HPI and ROS is quite convoluted. He does state that he has a "psych history" but when I asked what he had been diagnosed with he declined to tell me. He does endorse significant alcohol use. He drinks 1/5 per day and states his last drink was "about 10 seconds before being dropped off." Subjective/Events-last exam Patient is lying in bed pulling a catheter when I entered his room. When asked why he said he wanted it out. He was also attempting to get out of bed. When asked where he was going stated to the building across the street. When asked what the building was he was unable to answer. Discussed with RN inserted has done well with sitter Objective Exam Vital Signs Vital Signs Date Time Temp Pulse Resp B/P (MAP) Pulse Ox O2 Delivery O2 Flow Rate FiO2 12/04/18 11:43 98.9 107 22 169/107 (127) 97 Room Air 12/04/18 11:24 2.00 12/02/18 16:00 30 Capillary Refill : Less Than 3 Seconds General Appearance: Chronically ill, Other (confused) Respiratory: Lungs Clear, No Respiratory Distress Cardiovascular: Regular Rate, Rhythm, No Murmur Gastrointestinal: Normal Bowel Sounds, Non Tender, Soft Neurologic/Psychiatric: Other (confused, slightly agitated, pulling at catheter) Results/Procedures Lab Laboratory Tests 12/03/18 15:37 12/04/18 02:55 Patient resulted labs reviewed. Assessment/Plan Assessment and Plan Assess & Plan/Chief Complaint Alcohol Withdrawal Continue prn ativan Sitter currently ordered ue to confusion and high risk of fall social organization professor consulted Acute Respiratory Failure Extubated yesterday Pulm consulted, appreciate recs HTN Metoprolol started due to tachycardia, trend MRSA Pneumonia Continue on Vanc Hypokalemia Replace per protocol daily supplementation added Severe hypomagnesemia Replace per protocol Macrocytic Anemia - stable B12 low- replacing Folate low- replacing Paresthesias in feet - likely due nutritional deficiency or alcoholic neuropathy 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 FENGIPPx * fluids = 1/2 NS @ 50ml/hr * NPO until dysphagia screen * GI PPx = PPI * PPX = Lovenox * DC sung, DC central line if peripheral access established Critical Care Critically Ill Patient Diagnosis/Problems Diagnosis/Problems (1) Acute respiratory failure (2) Alcohol abuse (3) Macrocytic anemia (4) Hypomagnesemia Status: Acute (5) Lactic acidosis Status: Acute (6) Hypokalemia Status: Acute (7) Dehydration Status: Acute (8) Metabolic acidosis Status: Acute (9) Schizoaffective disorder (10) Marijuana abuse (11) Hyperglycemia (12) Hypophosphatemia Clinical Quality Measures DVT/VTE Risk/Contraindication: Risk Factor Score Per Nursin RFS Level Per Nursing on Admit: 3=High KESHA STATON MD Dec 04, 2018 11:03 am
[2018-12-04] MEDS: VANCOMYCIN 2000 MG/NS 500 ML IVPB IV SCH ×4 (11:04→19:59)
--- NOTE | 2018-12-04 16:09 | NUR ---
PT BP 193/131. DR. STATON NOTIFIED. NEW ORDER FOR HYDRALAZINE 5MG IV Q6H PRN FOR SBP GREATER THAN 190
[2018-12-04] MEDS: hydrALAZINE (APESOLINE) 20 MG/ML VIAL IV PRN ×2 (16:25→21:00)
[2018-12-04] MEDS: traZODone 150 MG (DESYREL) TABLET PO SCH (21:00)
[2018-12-04] MEDS: QUEtiapine 200 MG (SEROquel) TAB IMMEDIATE RELEASE PO SCH (21:00)
[2018-12-05] VITALS: BP 158/78
[2018-12-05 04:00] VITALS: BP 138/78
[2018-12-05 05:12] LABS: BASOPHILS % (AUTO) 1 % (0-10); EOSINOPHILS # (AUTO) 0.1 10^3/uL (0.0-0.3); EOSINOPHILS % (AUTO) 2 % (0-10); HEMATOCRIT 28 % (40-54); LYMPHOCYTES # (AUTO) 1.5 X 10^3 (1.0-4.0); LYMPHOCYTES % (AUTO) 26 % (12-44); MEAN CORPUSCULAR HEMOGLOBIN 35 PG (25-34); MEAN CORPUSCULAR HGB CONC 33 G/DL (32-36); MEAN CORPUSCULAR VOLUME 108 FL (80-99); MEAN PLATELET VOLUME 9.6 FL (7.4-10.4); MONOCYTES # (AUTO) 1.2 X 10^3 (0.0-1.0); MONOCYTES % (AUTO) 22 % (0-12); NEUTROPHILS # (AUTO) 2.9 X 10^3 (1.8-7.8); NEUTROPHILS % (AUTO) 51 % (42-75); PLATELET COUNT 217 10^3/uL (130-400); RED CELL DISTRIBUTION WIDTH 16.7 % (10.0-14.5); WHITE BLOOD COUNT 5.8 10^3/uL (4.3-11.0)
[2018-12-05 05:28] LABS: BUN/CREATININE RATIO 8; CALCIUM 8.7 MG/DL (8.5-10.1); CARBON DIOXIDE 20 MMOL/L (21-32); CHLORIDE 108 MMOL/L (98-107); CREATININE SERUM 0.85 MG/DL (0.60-1.30); GFR ESTIMATED > 60; GLUCOSE 89 MG/DL (70-105); MAGNESIUM 1.6 MG/DL (1.6-2.4); POTASSIUM 3.7 MMOL/L (3.6-5.0); SODIUM 143 MMOL/L (135-145)
[2018-12-05] MEDS: HALOPERIDOL 5 MG/ML (HALDOL) AMP IM/IV PRN (05:44)
[2018-12-05] MEDS: LORazepam INJ 2 MG/ML (ATIVAN) VIAL IV PRN (05:45)
[2018-12-05] MEDS: POTASSIUM CL 10MEQ/50ML IVPB 50 ML IV SCH (05:51)
[2018-12-05] MEDS: MAGNESIUM 1 GM/100 ML IVPB 100 ML IV SCH ×3 (05:51→08:53)
[2018-12-05] MEDS: MULTIVITAMINS LIQUID 15 ML UDC PO SCH (06:26)
[2018-12-05] MEDS: KCL 20 MEQ TAB (K-DUR) PO SCH ×2 (06:26)
[2018-12-05] MEDS: FOLIC ACID 1 MG TAB PO SCH (06:26)
[2018-12-05] MEDS: CYANOCOBALAMIN 1,000 MCG (VITAMIN B-12) TABLET PO SCH (06:26)
[2018-12-05 06:41] LABS: EOSINOPHILS % (MANUAL) 3 %; LYMPHOCYTES % (MANUAL) 27 %; MONOCYTES % (MANUAL) 15 %; NEUTROPHILS % (MANUAL) 55 %
[2018-12-05] MEDS: RT-ALBUTEROL/IPRATROPIUM 3 ML (DUONEB) VIAL INH SCH ×4 (06:51→19:30)
[2018-12-05 08:08] VITALS: BP 148/98
[2018-12-05] MEDS: NICOTINE 14 MG (NICODERM) PATCH TD SCH (08:38)
[2018-12-05] MEDS: DIVALPROEX 500 MG DELAYED RELEASE (DEPAKOTE) TAB PO SCH ×2 (08:38→20:15)
[2018-12-05] MEDS: ENOXAPARIN 40 MG/0.4 ML (LOVENOX) SYR SQ SCH (08:39)
[2018-12-05] MEDS: PANTOPRAZOLE 40 MG (PROTONIX) VIAL IV SCH (08:39)
[2018-12-05] MEDS: HALOPERIDOL 5 MG (HALDOL) TAB PO SCH ×2 (08:39→20:15)
[2018-12-05] MEDS: NICOTINE PATCH REMOVAL TP SCH (08:43)
[2018-12-05] MEDS: VANCOMYCIN 2000 MG/NS 500 ML IVPB IV SCH ×4 (08:53→20:16)
--- NOTE | 2018-12-05 11:00 | Physical Therapy Progress Note ---
Therapy Progress Note No treatment per RN due to patient increase in agitation and inability to follow direction. PT will continue to monitor patient status. CHRISTINA DEY PT Dec 05, 2018 11:00
[2018-12-05] MEDS ORDERED: QUEtiapine 25 MG (SEROquel) TAB IMMEDIATE RELEASE PO PRN (14:15)
--- NOTE | 2018-12-05 14:19 | NUR ---
CM/SS patient's mother (Maya Myles) called and stated that she is in [place], [place]. patient has medicaid and has SSI. Mother stated that he had been staying with Friend (Susie's) son and that she managed his SSI as he would have spent all the money and then not been able to pay bills. Susie is supposed to have his glasses and phone. Maya reported that the patient had been living in [place] and just moved to the [facility] within the last couple of weeks. She feels that he will be in need of SNF at discharge.
--- NOTE | 2018-12-05 14:32 | Progress Note - Hospitalist ---
Subjective HPI/CC On Admission Date Seen by Provider: Dec 05, 2018 Time Seen by Provider: 08:30 Paresthesias Subjective/Events-last exam He denies any complaints. He is disoriented. He denies chest pain, dyspnea, abdominal pain, nausea, vomiting. Objective Exam Vital Signs Vital Signs Date Time Temp Pulse Resp B/P (MAP) Pulse Ox O2 Delivery O2 Flow Rate FiO2 12/05/18 11:20 91 Room Air 12/05/18 08:08 97.2 106 20 148/98 (115) 12/04/18 11:24 2.00 12/02/18 16:00 30 Capillary Refill : NONELess Than 3 Seconds General Appearance: No Apparent Distress, WD/WN, Obese HEENT: PERRL/EOMI, Pharynx Normal Neck: Normal Inspection, Supple Respiratory: Lungs Clear, Normal Breath Sounds, No Respiratory Distress Cardiovascular: Regular Rate, Rhythm, No Edema, No Murmur Gastrointestinal: Normal Bowel Sounds, Non Tender, Soft Extremity: Normal Inspection, Non Tender, No Pedal Edema Neurologic/Psychiatric: Alert; No Disoriented Skin: Normal Color, Warm/Dry Results/Procedures Lab Laboratory Tests 12/05/18 05:05 Patient resulted labs reviewed. 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 Acute hypoxic respiratory failure -s/p intubation -Resolved Schizoaffective disorder -Continue home meds -Seroquel as needed Critical Care Critically Ill Patient Diagnosis/Problems Diagnosis/Problems (1) Delirium tremens Status: Resolved Resolution Date/Time: 12/05/18 @ 14:38 (2) Acute respiratory failure Status: Resolved Resolution Date/Time: 12/05/18 @ 14:38 (3) Schizoaffective disorder Status: Chronic (4) Macrocytic anemia Status: Chronic (5) Hypomagnesemia Status: Acute (6) Hypokalemia Status: Resolved Resolution Date/Time: 12/05/18 @ 14:38 Clinical Quality Measures DVT/VTE Risk/Contraindication: Risk Factor Score Per Nursin RFS Level Per Nursing on Admit: 3=High JUNIOR KATE MD Dec 05, 2018 14:32
--- NOTE | 2018-12-05 14:49 | Pulmonary Progress Note ---
Subjective Time Seen by a Provider: 14:47 Subjective/Events-last exam Pt is currently lethargic and sleeping Sepsis Event Evaluation Height, Weight, BMI Height: 5'10.00" Weight: 202lbs. 4.0oz. 91.987968pa; 31.0 BMI Method:Stated Exam Exam Vital Signs Date Time Temp Pulse Resp B/P (MAP) Pulse Ox O2 Delivery O2 Flow Rate FiO2 12/05/18 11:20 91 Room Air 12/05/18 09:00 Room Air 12/05/18 08:08 97.2 106 20 148/98 (115) 95 Room Air 12/05/18 06:55 97 Room Air 12/05/18 04:00 98.0 102 18 138/78 (98) 95 Room Air 12/05/18 00:00 98.2 88 18 158/78 (104) 95 12/04/18 21:00 95 Room Air 12/04/18 19:48 97.1 111 22 161/102 (121) 95 Room Air 12/04/18 18:28 95 Room Air 12/04/18 17:48 108 171/109 (129) 12/04/18 16:04 97.1 108 22 193/131 (151) 92 Room Air I & O 12/05/18 07:00 Intake Total 960 ml Output Total 1150 ml Balance -190 ml Height & Weight Height: 5'10.00" Weight: 202lbs. 4.0oz. 91.723406ks; 31.0 BMI Method:Stated General Appearance: No Apparent Distress, WD/WN, Obese HEENT: PERRL/EOMI, Pharynx Normal Neck: Normal Inspection, Supple Respiratory: Lungs Clear, Normal Breath Sounds, No Respiratory Distress Cardiovascular: Regular Rate, Rhythm, No Edema, No Murmur Capillary Refill: Less Than 3 Seconds Extremity: Normal Inspection, Non Tender, No Pedal Edema Skin: Normal Color, Warm/Dry Results Lab Laboratory Tests 12/03/18 15:37 12/04/18 02:55 12/05/18 05:05 Assessment/Plan Assessment/Plan S/p Acute respiratotry failure secondary to alcohol withdrawal treatment -S/p Vent -Monitor Severe electrolyte disturbance -Replace MRSA pneumonia vs infectious bronchitis -Continue Vanco for 7-10days -No leukocytosis or fever Metabolic encephalopathy -Consider decreasing sedation medication Alcohol dependance with increased agitation through the night -D/C MORENA protocol Marijuana -Education Probable CARY -out pt testing Anemia -Monitor Tobacco Dependance I am going to sign off please call with any questions or concerns. ULYSSES MCFARLAND DO Dec 05, 2018 14:49
--- NOTE | 2018-12-05 14:55 | Diagnostic Imaging Report ---
INDICATION: Shortness of breath and hypokalemia. TIME OF EXAMINATION: 2:24 PM. COMPARISON: 12/03/2018. FINDINGS: A right IJ line has its tip overlying the SVC. The congestive changes have improved since the exam of 2 days earlier. No effusion or pneumothorax is identified. IMPRESSION: Improvement in the congestive changes when compared to the examination from 2 days earlier. Dictated by: Dictated on workstation # [id number]
--- NOTE | 2018-12-05 15:15 | NUR ---
CM/SS made a dcf report (intake # [id number]) due to the fact that patient is confused as to whereabouts and such, have no knowledge of any DPOA for the patient.
[2018-12-05] MEDS: QUEtiapine 200 MG (SEROquel) TAB IMMEDIATE RELEASE PO SCH (20:15)
[2018-12-05] MEDS: traZODone 150 MG (DESYREL) TABLET PO SCH (20:15)
[2018-12-05 20:28] VITALS: BP 156/100
[2018-12-06] VITALS (7 sets, daily range): BP systolic 143–187; BP diastolic 82–131
[2018-12-06] MEDS: MAGNESIUM 1 GM/100 ML IVPB 100 ML IV SCH (04:16)
[2018-12-06] MEDS: POTASSIUM CL 10MEQ/50ML IVPB 50 ML IV SCH (04:16)
[2018-12-06] MEDS: KCL 20 MEQ TAB (K-DUR) PO SCH ×2 (04:19→05:43)
[2018-12-06 04:50] LABS: BASOPHILS % (AUTO) 1 % (0-10); EOSINOPHILS # (AUTO) 0.1 10^3/uL (0.0-0.3); EOSINOPHILS % (AUTO) 3 % (0-10); HEMATOCRIT 26 % (40-54); HEMOGLOBIN 8.4 G/DL (13.3-17.7); LYMPHOCYTES # (AUTO) 1.4 X 10^3 (1.0-4.0); LYMPHOCYTES % (AUTO) 29 % (12-44); MEAN CORPUSCULAR HEMOGLOBIN 35 PG (25-34); MEAN CORPUSCULAR HGB CONC 33 G/DL (32-36); MEAN CORPUSCULAR VOLUME 107 FL (80-99); MEAN PLATELET VOLUME 10.1 FL (7.4-10.4); MONOCYTES % (AUTO) 21 % (0-12); NEUTROPHILS # (AUTO) 2.3 X 10^3 (1.8-7.8); NEUTROPHILS % (AUTO) 47 % (42-75); PLATELET COUNT 196 10^3/uL (130-400); RED CELL DISTRIBUTION WIDTH 16.1 % (10.0-14.5); WHITE BLOOD COUNT 4.9 10^3/uL (4.3-11.0)
[2018-12-06 05:06] LABS: CALCIUM 8.3 MG/DL (8.5-10.1); CREATININE SERUM 1.4 MG/DL (0.60-1.30); MAGNESIUM 2.1 MG/DL (1.6-2.4); PHOSPHORUS 5.4 MG/DL (2.3-4.7); POTASSIUM 3.3 MMOL/L (3.6-5.0)
[2018-12-06] MEDS: MULTIVITAMINS LIQUID 15 ML UDC PO SCH (05:43)
[2018-12-06] MEDS: THIAMINE 100 MG (VITAMIN B-1) TAB PO SCH (05:43)
[2018-12-06] MEDS: FOLIC ACID 1 MG TAB PO SCH (05:43)
[2018-12-06] MEDS: CYANOCOBALAMIN 1,000 MCG (VITAMIN B-12) TABLET PO SCH (05:43)
[2018-12-06] MEDS: RT-ALBUTEROL/IPRATROPIUM 3 ML (DUONEB) VIAL INH SCH (06:57)
[2018-12-06] MEDS ORDERED: NS IV 1000 ML 1,000 ML IV SCH (07:45)
[2018-12-06] MEDS ORDERED: TROUGH ORDER-PHARMACY XX NR (08:00)
[2018-12-06] MEDS: NICOTINE 14 MG (NICODERM) PATCH TD SCH (08:23)
[2018-12-06] MEDS: HALOPERIDOL 5 MG (HALDOL) TAB PO SCH ×2 (08:23→21:22)
[2018-12-06] MEDS: ENOXAPARIN 40 MG/0.4 ML (LOVENOX) SYR SQ SCH (08:23)
[2018-12-06] MEDS: NICOTINE PATCH REMOVAL TP SCH (08:23)
[2018-12-06] MEDS: PANTOPRAZOLE 40 MG (PROTONIX) VIAL IV SCH (08:23)
[2018-12-06] MEDS ORDERED: KCL 20 MEQ TAB (K-DUR) PO NR (08:30)
[2018-12-06] MEDS: DIVALPROEX 500 MG DELAYED RELEASE (DEPAKOTE) TAB PO SCH ×2 (08:34→21:22)
[2018-12-06] MEDS: VANCOMYCIN 2000 MG/NS 500 ML IVPB IV SCH ×2 (09:09)
--- NOTE | 2018-12-06 09:09 | NUR ---
PHARMACIST NOTIFIED OF CRITICAL VANCO TROUGH RESULTS
[2018-12-06] MEDS ORDERED: RT-ALBUTEROL/IPRATROPIUM 3 ML (DUONEB) VIAL INH PRN (10:00)
--- NOTE | 2018-12-06 10:14 | Physical Therapy Evaluation ---
PT Evaluation-General Medical Diagnosis Admission Date Nov 27, 2018 at 20:30 Medical Diagnosis: Alcohol Abuse Onset Date: Nov 27, 2018 Therapy Diagnosis Therapy Diagnosis: debility/weakness Height/Weight Height (Feet): 5 Height (Inches): 10.00 Weight (Pounds): 202 Weight (Ounces): 4.0 Precautions Precautions/Isolations: Droplet Isolation, Seizure, Fall Prevention Weight Bear Status Right Lower Extremity: Right Weight Bearing/Tolerated Left Lower Extremity: Left Weight Bearing/Tolerated Referral Physician: Charly Reason for Referral: Evaluation/Treatment Medical History Pertinent Medical History: Alcoholism, Smoking Additional Medical History drug use/schizophrenia Current History ER secondary to SOA/weakness/numbness and tingling bilateral feet Reviewed History: Yes Social History Current Living Status: Significant Other Prior/Core FIM Prior Level of Function Therapy Code Descriptions/Definitions Functional [place] Measure: 0=Not Assessed/NA 4=Minimal Assistance 1=Total Assistance 5=Supervision or Setup 2=Maximal Assistance 6=Modified [place] 3=Moderate Assistance 7=Complete [place] Therapy Quality Codes: 6 Independent with activity with or without an assistive device 5 Patient requires set up or clean up by helper. Patient completes activity by themselves 4 Supervision or touching assist (CGA). [place] provide cues , steadying assist 3 The helper provides less than half the effort to complete the activity 2 The helper provides more than half the effort to complete the activity 1 Dependent. The helper does all the effort to complete an activity 7 Patient refused to complete or attempt activity 9 The patient did not perform the activity before the current illness or injury 88 Not attempted due to Medical conditions or safety concerns Functional Abilities and Goals: Independent: Patient completed the activities by him/herself, with or without an assistive device, with no assistance from a helper. Needed Some Help: Patient needed partial assistance from another person to complete activities. Dependent: A helper completed the activities for the patient. Unknown: Not Applicable: Bed Mobility: 7 Transfers (B,C,W/C) (FIM): 7 Gait: 7 Indoor Mobility (Ambulation): Independent Stairs: Independent Prior Devices Use: None PT Evaluation-Current Subjective Patient unable to follow simple direction. Does respond to tactile cues. Patient has sitter. Objective Patient Orientation: Confused Problem Solving: Poor Attachments: IV ROM/Strength ROM Lower Extremities bilateral LE WFL Strength Lower Extremities 4-/5 grossly bilateral LE Integumentary/Posture Integumentary refer to nursing notes Bowel Incontinence: Yes Bladder Incontinence: Yes Posture WFL Neuromuscular (Tone, Coordination, Reflexes) diminished coordination Sensory Vision: Functional Hearing: Functional Sensation Right Lower Extremit: Impaired Sensation Left Lower Extremity: Impaired Transfers Therapy Code Descriptions/Definitions Functional [place] Measure: 0=Not Assessed/NA 4=Minimal Assistance 1=Total Assistance 5=Supervision or Setup 2=Maximal Assistance 6=Modified [place] 3=Moderate Assistance 7=Complete [place] Transfers (B, C, W/C) (FIM): 4 Scootin Rollin Supine to/from Sit: 5 Sit to/from Stand: 4 assisted patient to shower minimal to moderate assist Gait Mode of Locomotion: Walk Anticipated Mode of Locomotion: Walk Gait (FIM): 1 Distance (FIM): 1=up to 49 ft Distance: 15' x 2 Gait Level of Assist: 3 Gait Persons Needed: 1 Gait Assistive Device: None Comments/Gait Description unaware of safety concerns or environment. Impulsive to sit or stand depending on situation. Patient impulsively stood in shower and was unsafe requiring assistance to attain sitting position on bench for safety. Patient became agitated with this process. Balance Sitting Static: Normal Sitting Dynamic: Normal Standing Static: Fair Standing Dynamic: Fair Assessment/Needs 48 y.o. male, will be seen by skilled PT to address functional strength and m obility to improve current LOF. Patient is limited due to mental status and inability to follow simple direction. Patient is highly unaware of safety concerns. He currently has a sitter to prevent harm. Rehab Potential: Guarded PT Half-Way Goals Half-Way Goals PT Batter Mixer Goals Time Frame: Dec 17, 2018 Transfers (B,C,W/C) (FIM): 5 Gait (FIM): 5 Gait distance (FIM): 3=150 ft Distance: 150' Gait Level of Assist: 5 Gait Assistive Device: None PT Plan Problem List Problem List: Activity Tolerance, Functional Strength, Safety, Balance, Gait, Transfer, Bed Mobility Treatment/Plan Treatment Plan: Continue Plan of Care Treatment Plan: Bed Mobility, Education, Functional Activity Gabriella, Functional Strength, Gait, Safety, Therapeutic Exercise, Transfers Treatment Duration: Dec 17, 2018 Frequency: 5 times per week Estimated Hrs Per Day: .25 hour per day Patient and/or Family Agrees t: Yes Discharge Recommendations Therapy D/C Recommendations: Half-Way Placement Time/GCodes Time In: 835 Time Out: 854 Total Billed Treatment Time: 19 Total Billed Treatment 1 visit EVModC 19 min CHRISTINA DEY PT Dec 06, 2018 10:14
[2018-12-06 10:34] LABS: BILIRUBIN,URINE NEGATIVE (NEGATIVE); CLARITY,URINE SLIGHTLY CLOUDY; COLOR,URINE YELLOW; GLUCOSE, URINE (UA) NEGATIVE (NEGATIVE); KETONES,URINE NEGATIVE (NEGATIVE); LEUKOCYTE ESTERASE ,URINE 1+ (NEGATIVE); NITRITE,URINE NEGATIVE (NEGATIVE); PH,URINE 5 (5-9); PROTEIN,URINE 2+ (NEGATIVE); UROBILINOGEN,URINE NORMAL (NORMAL)
[2018-12-06 11:03] LABS: AMORPHOUS SEDIMENT,UR LARGE AMOR URATES /LPF; BACTERIA,URINE MODERATE /HPF; RBC,URINE >100 /HPF; SQUAMOUS EPITHELIAL CELL,UR RARE /HPF
--- NOTE | 2018-12-06 11:06 | Progress Note - Hospitalist ---
Subjective HPI/CC On Admission Date Seen by Provider: Dec 06, 2018 Time Seen by Provider: 09:30 Paresthesias Subjective/Events-last exam He has no complaints at this time. He denies any pain. He denies any chest pain, shortness of breath, abdominal pain, nausea, vomiting, constipation, or diarrhea. He says that he is eating and drinking without issues. Objective Exam Vital Signs Vital Signs Date Time Temp Pulse Resp B/P (MAP) Pulse Ox O2 Delivery O2 Flow Rate FiO2 12/06/18 08:18 97.9 103 20 143/99 (114) 96 Room Air 12/04/18 11:24 2.00 12/02/18 16:00 30 Capillary Refill : NONELess Than 3 Seconds General Appearance: No Apparent Distress, WD/WN, Obese HEENT: PERRL/EOMI, Pharynx Normal Neck: Normal Inspection, Supple Respiratory: Lungs Clear, Normal Breath Sounds, No Respiratory Distress Cardiovascular: Regular Rate, Rhythm, No Edema, No Murmur Gastrointestinal: Normal Bowel Sounds, Non Tender, Soft Extremity: Normal Inspection, Non Tender Neurologic/Psychiatric: Alert, No Motor/Sensory Deficits, Disoriented (Oriented to self) Skin: Normal Color, Warm/Dry, Tattoos/Piercings Results/Procedures Lab Laboratory Tests 12/06/18 04:40 Patient resulted labs reviewed. 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 Acute hypoxic respiratory failure -s/p intubation -Resolved Schizoaffective disorder -Continue home meds -Seroquel as needed -Lacks decision-making capacity at this time -Sitter at bedside Disposition -Will require SNF on discharge -Mother is next of kin, requesting to be the decision maker -SW assistance appreciated Diagnosis/Problems Diagnosis/Problems (1) Delirium tremens Status: Resolved Resolution Date/Time: 12/05/18 @ 14:38 (2) Acute respiratory failure Status: Resolved Resolution Date/Time: 12/05/18 @ 14:38 (3) Schizoaffective disorder Status: Chronic (4) Macrocytic anemia Status: Chronic (5) Hypomagnesemia Status: Acute (6) Hypokalemia Status: Resolved Resolution Date/Time: 12/05/18 @ 14:38 (7) Acute kidney injury Status: Acute Clinical Quality Measures DVT/VTE Risk/Contraindication: Risk Factor Score Per Nursin RFS Level Per Nursing on Admit: 3=High JUNIOR KATE MD Dec 06, 2018 11:06
--- NOTE | 2018-12-06 11:46 | NUR ---
CM/SS spoke with the patient and his friend (Susie), Susie stated that he is normally not like this at all and that he has lost weight. She stated that she helped him manage money just so that he wasn't broke by the next week of getting his check. She did report that he had some medical conditions such as fatty liver, sclerosis, and he is pre-diabetic as of a year and a half ago. She also reported that he drinks a handle of liquor every two days.
--- NOTE | 2018-12-06 12:39 | NUR ---
CM/SS spoke with Gordy at [facility]. He stated that the patient's case has been assigned and has been given a 5 day response time, discussed that patient could be ready for discharge on 12/07 or 12/08. Gordy stated that if patient was unable to make decisions for himself and not lucid, then he would need a guardian for placement. Gordy stated that if the hospital was allowing the mother as next of kin to make decisions for the patient then it would be up to the SNF if they would accept that. Message left for [facility]. Will send referral to them for consideration.
[2018-12-06] MEDS ORDERED: THIAMINE 100 MG/ML 2 ML (VITAMIN B-1) VIAL IV SCH (14:00)
[2018-12-06] MEDS: THIAMINE INJECTION 500 MG in NS (IVPB) 50 ML IV SCH ×2 (14:10→21:41)
[2018-12-06] MEDS: LORazepam INJ 2 MG/ML (ATIVAN) VIAL IV PRN ×2 (17:08→21:38)
[2018-12-06] MEDS: hydrALAZINE (APESOLINE) 20 MG/ML VIAL IV PRN (20:42)
--- NOTE | 2018-12-06 20:42 | NUR ---
PT BP 187/161. APRESOLINE 5MG IV ADMINISTERED AT THIS TIME. WILL CONTINUE TO MONITOR.
--- NOTE | 2018-12-06 20:49 | NUR ---
PT'S MOTHER CALLED TO INQUIRE ABOUT PT AND TO ASK ABOUT TALKING WITH THERMOSTAT REPAIRER JENN. I INFORMED PT'S MOTHER THAT PT IS CONFUSED BUT COOPERATIVE AT THIS TIME. PT REQUESTED THAT I LEAVE A NOTE FOR JENN TO HAVE JENN CALL HER.
[2018-12-06] MEDS: QUEtiapine 200 MG (SEROquel) TAB IMMEDIATE RELEASE PO SCH (21:22)
[2018-12-06] MEDS: traZODone 150 MG (DESYREL) TABLET PO SCH (21:22)
--- NOTE | 2018-12-06 21:30 | NUR ---
PT PULLED RIGHT TRIPLE LUMEN IJ OUT. PRESSURE HELD FOR 10 MINUTES BY MILLIE TIRADO. 22G IV PLACED IN RIGHT AC AT 2135 BY THIS RN.
[2018-12-07] VITALS (8 sets, daily range): BP systolic 153–182; BP diastolic 86–117
[2018-12-07] MEDS: hydrOXYzine (VISTARIL/ATARAX) 25 MG capsule/tablet PO PRN (00:50)
[2018-12-07] MEDS: POTASSIUM CL 10MEQ/50ML IVPB 50 ML IV SCH (03:55)
[2018-12-07] MEDS: MAGNESIUM 1 GM/100 ML IVPB 100 ML IV SCH ×3 (03:56→11:29)
[2018-12-07] MEDS: KCL 20 MEQ TAB (K-DUR) PO SCH ×2 (03:57→06:23)
[2018-12-07] MEDS ORDERED: TROUGH ORDER-PHARMACY XX NR (05:00)
[2018-12-07 06:00] LABS: BASOPHILS % (AUTO) 1 % (0-10); EOSINOPHILS # (AUTO) 0.1 10^3/uL (0.0-0.3); EOSINOPHILS % (AUTO) 3 % (0-10); HEMATOCRIT 27 % (40-54); HEMOGLOBIN 8.5 G/DL (13.3-17.7); LYMPHOCYTES # (AUTO) 1.6 X 10^3 (1.0-4.0); LYMPHOCYTES % (AUTO) 34 % (12-44); MEAN CORPUSCULAR HEMOGLOBIN 34 PG (25-34); MEAN CORPUSCULAR HGB CONC 32 G/DL (32-36); MEAN CORPUSCULAR VOLUME 107 FL (80-99); MEAN PLATELET VOLUME 10.1 FL (7.4-10.4); MONOCYTES # (AUTO) 0.9 X 10^3 (0.0-1.0); MONOCYTES % (AUTO) 20 % (0-12); NEUTROPHILS % (AUTO) 42 % (42-75); PLATELET COUNT 220 10^3/uL (130-400); RED CELL DISTRIBUTION WIDTH 15.7 % (10.0-14.5); WHITE BLOOD COUNT 4.7 10^3/uL (4.3-11.0)
[2018-12-07] MEDS: THIAMINE 100 MG (VITAMIN B-1) TAB PO SCH (06:21)
[2018-12-07] MEDS: MULTIVITAMINS LIQUID 15 ML UDC PO SCH (06:21)
[2018-12-07] MEDS: CYANOCOBALAMIN 1,000 MCG (VITAMIN B-12) TABLET PO SCH (06:21)
[2018-12-07] MEDS: FOLIC ACID 1 MG TAB PO SCH (06:21)
[2018-12-07] MEDS: THIAMINE INJECTION 500 MG in NS (IVPB) 50 ML IV SCH ×3 (06:21→21:04)
[2018-12-07 06:28] LABS: CALCIUM 8.7 MG/DL (8.5-10.1); CREATININE SERUM 1.42 MG/DL (0.60-1.30); MAGNESIUM 1.5 MG/DL (1.6-2.4); PHOSPHORUS 5.3 MG/DL (2.3-4.7); POTASSIUM 3.8 MMOL/L (3.6-5.0)
[2018-12-07 06:38] LABS: VANCOMYCIN,TROUGH 20.5 UG/ML (10.0-20.0)
[2018-12-07] MEDS: VANCOMYCIN INJECTION 1,500 MG in NS IV 500 ML 500 ML IV SCH (08:04)
[2018-12-07] MEDS: HALOPERIDOL 5 MG (HALDOL) TAB PO SCH ×2 (08:09→21:03)
[2018-12-07] MEDS: cloNIDine 0.1 MG (CATAPRES) TAB PO PRN ×2 (08:09→16:34)
[2018-12-07] MEDS: DIVALPROEX 500 MG DELAYED RELEASE (DEPAKOTE) TAB PO SCH ×2 (08:09→21:03)
[2018-12-07] MEDS: ENOXAPARIN 40 MG/0.4 ML (LOVENOX) SYR SQ SCH (08:12)
[2018-12-07] MEDS: NICOTINE 14 MG (NICODERM) PATCH TD SCH (08:15)
[2018-12-07] MEDS: NICOTINE PATCH REMOVAL TP SCH (08:16)
[2018-12-07] MEDS: PANTOPRAZOLE 40 MG (PROTONIX) VIAL IV SCH (09:24)
[2018-12-07] MEDS ORDERED: NS IV 500 ML 500 ML ONE (10:40)
--- NOTE | 2018-12-07 10:42 | Physical Therapy Daily Note ---
PT Daily Note-Current Subjective Patient sitting in bed pre tx, agrees to PT, states he doesn't have any pain. Patient has a sitter and is confused. Appearance Patient in recliner post tx with nurse call, phone, tray, sitter in room, nurse in room adjusting his IV. Mental Status Patient Orientation: Person, Confused Attachments: IV Transfers Therapy Code Descriptions/Definitions Functional [place] Measure: 0=Not Assessed/NA 4=Minimal Assistance 1=Total Assistance 5=Supervision or Setup 2=Maximal Assistance 6=Modified [place] 3=Moderate Assistance 7=Complete [place] Therapy Quality Codes: 6 Independent with activity with or without an assistive device 5 Patient requires set up or clean up by helper. Patient completes activity by themselves 4 Supervision or touching assist (CGA). [place] provide cues , steadying assist 3 The helper provides less than half the effort to complete the activity 2 The helper provides more than half the effort to complete the activity 1 Dependent. The helper does all the effort to complete an activity 7 Patient refused to complete or attempt activity 9 The patient did not perform the activity before the current illness or injury 88 Not attempted due to Medical conditions or safety concerns Transfers (B, C, W/C) (FIM): 4 Scootin Rollin Supine to/from Sit: 4 Sit to/from Stand: 4 Bed to/from Chair: 4 CGA, impulsive, poor safety awareness Weight Bearing Right Lower Extremity: Right Weight Bearing/Tolerated Left Lower Extremity: Left Weight Bearing/Tolerated Gait Training Gait (FIM): 4 Distance: 150' Gait Level of Assist: 4 Gait Persons Needed: 1 Gait Assistive Device: Handheld Assist unsteady but no LOB, impulsive Treatments bed mobility and transfers, ambulation Assessment Current Status: Fair Progress improved ambulation but unsteady, impulsive, confused PT Environmental Health And Safety Manager Goals Environmental Health And Safety Manager Goals [facility] Goals Time Frame: Dec 17, 2018 Transfers (B,C,W/C) (FIM): 5 Gait (FIM): 5 Gait distance (FIM): 3=150 ft Distance: 150' Gait Level of Assist: 5 Gait Assistive Device: None PT Plan Problem List Problem List: Activity Tolerance, Functional Strength, Safety, Balance, Gait, Transfer, Bed Mobility Treatment/Plan Treatment Plan: Continue Plan of Care Treatment Plan: Bed Mobility, Education, Functional Activity Gabriella, Functional Strength, Gait, Safety, Therapeutic Exercise, Transfers Treatment Duration: Dec 17, 2018 Frequency: 5 times per week Estimated Hrs Per Day: .25 hour per day Patient and/or Family Agrees t: Yes Safety Risks/Education Patient Education: Gait Training, Transfer Techniques, Correct Positioning, Safety Issues Teaching Recipient: Patient Teaching Methods: Demonstration, Discussion Response to Teaching: Reinforcement Needed Time/GCodes Time In: 1021 Time Out: 1035 Total Billed Treatment Time: 14 Total Billed Treatment 1 visit GT 14' NED BA PT Dec 07, 2018 10:42
[2018-12-07] MEDS ORDERED: amLODIPine 10 MG (NORVASC) TAB PO NR (12:45)
--- NOTE | 2018-12-07 12:47 | Progress Note - Hospitalist ---
Subjective HPI/CC On Admission Date Seen by Provider: Dec 07, 2018 Time Seen by Provider: 10:00 Paresthesias Subjective/Events-last exam He has no complaints other than being in the hospital. He denies pain. He denies chest pain and dyspnea. He had breakfast and tolerated it well. Objective Exam Vital Signs Vital Signs Date Time Temp Pulse Resp B/P (MAP) Pulse Ox O2 Delivery O2 Flow Rate FiO2 12/07/18 12:12 96.4 96 20 166/107 (126) 95 Room Air 12/04/18 11:24 2.00 12/02/18 16:00 30 Capillary Refill : NONELess Than 3 Seconds General Appearance: No Apparent Distress, WD/WN, Obese HEENT: PERRL/EOMI, Pharynx Normal Neck: Normal Inspection, Supple Respiratory: Lungs Clear, Normal Breath Sounds, No Respiratory Distress Cardiovascular: Regular Rate, Rhythm, No Edema, No Murmur Gastrointestinal: Normal Bowel Sounds, Non Tender, Soft Extremity: Normal Inspection, Non Tender Neurologic/Psychiatric: Alert, No Motor/Sensory Deficits, Disoriented Skin: Normal Color, Warm/Dry Lymphatic: No Adenopathy Results/Procedures Lab Laboratory Tests 12/07/18 05:10 Patient resulted labs reviewed. 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 Acute hypoxic respiratory failure -s/p intubation -Resolved Schizoaffective disorder -Continue home meds -Seroquel as needed -Lacks decision-making capacity at this time -Sitter at bedside Disposition -Will require SNF on discharge -Mother is next of kin, requesting to be the decision maker -SW assistance appreciated Diagnosis/Problems Diagnosis/Problems (1) Delirium tremens Status: Resolved Resolution Date/Time: 12/05/18 @ 14:38 (2) Acute respiratory failure Status: Resolved Resolution Date/Time: 12/05/18 @ 14:38 (3) Schizoaffective disorder Status: Chronic (4) Macrocytic anemia Status: Chronic (5) Hypomagnesemia Status: Acute (6) Hypokalemia Status: Resolved Resolution Date/Time: 12/05/18 @ 14:38 (7) Acute kidney injury Status: Acute Clinical Quality Measures DVT/VTE Risk/Contraindication: Risk Factor Score Per Nursin RFS Level Per Nursing on Admit: 3=High JUNIOR KATE MD Dec 07, 2018 12:47
[2018-12-07] MEDS: LORazepam INJ 2 MG/ML (ATIVAN) VIAL IV PRN (16:07)
[2018-12-07] MEDS: hydrALAZINE (APESOLINE) 20 MG/ML VIAL IV PRN (16:34)
[2018-12-07] MEDS: QUEtiapine 200 MG (SEROquel) TAB IMMEDIATE RELEASE PO SCH (21:03)
[2018-12-07] MEDS: traZODone 150 MG (DESYREL) TABLET PO SCH (21:03)
--- NOTE | 2018-12-07 21:20 | NUR ---
DURING IV DRESSING CHANGE, PT MOVED ARM THE TEGADERM WAS BEING REMOVED AND PULLED IV CATHETER OUT. NEW 22G IV PLACED IN RIGHT FOREARM BY MILLIE TIRADO. ONE SUCCESSFUL ATTEMPT, ZERO UNSUCCESSFUL ATTEMPTS. WILL CONTINUE TO MONITOR.
[2018-12-08 04:59] VITALS: BP 161/114
[2018-12-08 06:01] LABS: BASOPHILS % (AUTO) 1 % (0-10); EOSINOPHILS # (AUTO) 0.1 10^3/uL (0.0-0.3); EOSINOPHILS % (AUTO) 3 % (0-10); HEMATOCRIT 28 % (40-54); HEMOGLOBIN 8.9 G/DL (13.3-17.7); LYMPHOCYTES # (AUTO) 1.9 X 10^3 (1.0-4.0); LYMPHOCYTES % (AUTO) 37 % (12-44); MEAN CORPUSCULAR HEMOGLOBIN 34 PG (25-34); MEAN CORPUSCULAR HGB CONC 32 G/DL (32-36); MEAN CORPUSCULAR VOLUME 106 FL (80-99); MEAN PLATELET VOLUME 10.3 FL (7.4-10.4); MONOCYTES # (AUTO) 0.8 X 10^3 (0.0-1.0); MONOCYTES % (AUTO) 17 % (0-12); NEUTROPHILS # (AUTO) 2.2 X 10^3 (1.8-7.8); NEUTROPHILS % (AUTO) 43 % (42-75); PLATELET COUNT 248 10^3/uL (130-400); RED CELL DISTRIBUTION WIDTH 15.2 % (10.0-14.5); WHITE BLOOD COUNT 5.1 10^3/uL (4.3-11.0)
[2018-12-08] MEDS: THIAMINE INJECTION 500 MG in NS (IVPB) 50 ML IV SCH ×2 (06:15→13:57)
[2018-12-08] MEDS: MULTIVITAMINS LIQUID 15 ML UDC PO SCH (06:16)
[2018-12-08] MEDS: CYANOCOBALAMIN 1,000 MCG (VITAMIN B-12) TABLET PO SCH (06:16)
[2018-12-08] MEDS: FOLIC ACID 1 MG TAB PO SCH (06:16)
[2018-12-08] MEDS: THIAMINE 100 MG (VITAMIN B-1) TAB PO SCH (06:16)
[2018-12-08] MEDS: KCL 20 MEQ TAB (K-DUR) PO SCH (06:17)
[2018-12-08 06:18] LABS: CALCIUM 9.1 MG/DL (8.5-10.1); CREATININE SERUM 1.51 MG/DL (0.60-1.30); MAGNESIUM 1.9 MG/DL (1.6-2.4); PHOSPHORUS 5.7 MG/DL (2.3-4.7); POTASSIUM 3.7 MMOL/L (3.6-5.0)
[2018-12-08 08:00] VITALS: BP 143/87
[2018-12-08] MEDS ORDERED: MELATONIN 3 MG TABLET PO PRN (08:30)
[2018-12-08] MEDS ORDERED: ONDANSETRON 4 MG (ZOFRAN) ORAL DISSOLVE TAB PO PRN (08:30)
[2018-12-08] MEDS ORDERED: diphenhydrAMINE 25 MG TAB (BENADRYL) PO PRN (08:30)
[2018-12-08] MEDS ORDERED: BISACODYL 10 MG SUPP (DULCOLAX) PR PRN (08:30)
[2018-12-08] MEDS ORDERED: ACETAMINOPHEN 325 MG TABLET PO PRN (08:30)
[2018-12-08] MEDS ORDERED: POLYETHYLENE GLYCOL 17 GM (MIRALAX) PACK PO PRN (08:30)
[2018-12-08] MEDS ORDERED: KCL 20 MEQ TAB (K-DUR) PO NR (08:30)
[2018-12-08] MEDS: NICOTINE 14 MG (NICODERM) PATCH TD SCH (08:34)
[2018-12-08] MEDS: VANCOMYCIN INJECTION 1,500 MG in NS IV 500 ML 500 ML IV SCH (08:34)
[2018-12-08] MEDS: PANTOPRAZOLE 40 MG (PROTONIX) VIAL IV SCH (08:34)
[2018-12-08] MEDS: amLODIPine 10 MG (NORVASC) TAB PO SCH (08:35)
[2018-12-08] MEDS: DIVALPROEX 500 MG DELAYED RELEASE (DEPAKOTE) TAB PO SCH ×2 (08:35→21:02)
[2018-12-08] MEDS: ENOXAPARIN 40 MG/0.4 ML (LOVENOX) SYR SQ SCH (08:35)
[2018-12-08] MEDS: HALOPERIDOL 5 MG (HALDOL) TAB PO SCH ×2 (08:35→21:03)
[2018-12-08] MEDS: NICOTINE PATCH REMOVAL TP SCH (08:36)
[2018-12-08] MEDS ORDERED: meTOproloL SUCCINATE 50 MG (TOPROL XL) TAB PO SCH (09:00)
[2018-12-08] MEDS ORDERED: CARVEDILOL 12.5 MG (COREG) TABLET PO SCH (09:00)
[2018-12-08] MEDS: DOCUSATE SODIUM 100 MG (COLACE) CAP PO SCH ×2 (09:18→21:03)
--- NOTE | 2018-12-08 09:45 | NUR ---
CM/SS message left for Camryn at [facility] this day in attempts to follow up on referral sent to them for placement.
[2018-12-08] MEDS ORDERED: NS IV 1000 ML 1,000 ML IV SCH (11:00)
--- NOTE | 2018-12-08 11:32 | Physical Therapy Daily Note ---
PT Daily Note-Current Subjective Patient more alert today and agrees to PT. Patient continues to require a sitter for safety. Mental Status Patient Orientation: Confused Transfers Therapy Code Descriptions/Definitions Functional [place] Measure: 0=Not Assessed/NA 4=Minimal Assistance 1=Total Assistance 5=Supervision or Setup 2=Maximal Assistance 6=Modified [place] 3=Moderate Assistance 7=Complete [place] Therapy Quality Codes: 6 Independent with activity with or without an assistive device 5 Patient requires set up or clean up by helper. Patient completes activity by themselves 4 Supervision or touching assist (CGA). [place] provide cues , steadying assist 3 The helper provides less than half the effort to complete the activity 2 The helper provides more than half the effort to complete the activity 1 Dependent. The helper does all the effort to complete an activity 7 Patient refused to complete or attempt activity 9 The patient did not perform the activity before the current illness or injury 88 Not attempted due to Medical conditions or safety concerns Transfers (B, C, W/C) (FIM): 6 Scootin Rollin Supine to/from Sit: 6 Sit to/from Stand: 6 Weight Bearing Right Lower Extremity: Right Weight Bearing/Tolerated Left Lower Extremity: Left Weight Bearing/Tolerated Gait Training Gait (FIM): 5 Distance (FIM): 3=150 ft Distance: 250' Gait Level of Assist: 5 Gait Persons Needed: 1 Gait Assistive Device: None slightly unsteady with self correct Assessment Patient tolerated treatment well and returned to bed with needs met. PT Chemical Process Engineer Goals [facility] Goals PT Chemical Process Engineer Goals Time Frame: Dec 17, 2018 Transfers (B,C,W/C) (FIM): 5 Gait (FIM): 5 Gait distance (FIM): 3=150 ft Distance: 150' Gait Level of Assist: 5 Gait Assistive Device: None PT Plan Treatment/Plan Treatment Plan: Continue Plan of Care Treatment Plan: Bed Mobility, Education, Functional Activity Gabriella, Functional Strength, Gait, Safety, Therapeutic Exercise, Transfers Treatment Duration: Dec 17, 2018 Frequency: 5 times per week Estimated Hrs Per Day: .25 hour per day Patient and/or Family Agrees t: Yes Time/GCodes Time In: 1115 Time Out: 1126 Total Billed Treatment Time: 11 Total Billed Treatment 1 visit GT 11 min CHRISTINA DEY PT Dec 08, 2018 11:32
--- NOTE | 2018-12-08 11:34 | NUR ---
CM/SS [facility] returned call and stated they would not be able to accept patient due to not being able to meet his needs. Referral sent to [facility]. Message left for [facility].
[2018-12-08 12:29] VITALS: BP 139/104
--- NOTE | 2018-12-08 13:05 | Progress Note - Hospitalist ---
Subjective HPI/CC On Admission Date Seen by Provider: Dec 08, 2018 Time Seen by Provider: 11:30 Paresthesias Subjective/Events-last exam He reports feeling well this morning. He denies any chest pain, dyspnea, abdominal pain, nausea, vomiting. He has been eating and drinking well. Objective Exam Vital Signs Vital Signs Date Time Temp Pulse Resp B/P (MAP) Pulse Ox O2 Delivery O2 Flow Rate FiO2 12/08/18 12:29 97.5 88 22 139/104 (116) 97 Room Air 12/04/18 11:24 2.00 12/02/18 16:00 30 Capillary Refill : NONELess Than 3 Seconds General Appearance: No Apparent Distress, WD/WN, Obese HEENT: PERRL/EOMI, Pharynx Normal Neck: Normal Inspection, Supple Respiratory: Lungs Clear, Normal Breath Sounds, No Respiratory Distress Cardiovascular: Regular Rate, Rhythm, No Edema, No Murmur Gastrointestinal: Normal Bowel Sounds, Non Tender, Soft Extremity: Normal Inspection, No Pedal Edema Neurologic/Psychiatric: Alert, Oriented x3 Skin: Normal Color, Warm/Dry Results/Procedures Lab Laboratory Tests 12/08/18 05:15 Patient resulted labs reviewed. 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 Acute hypoxic respiratory failure -s/p intubation -Resolved Schizoaffective disorder -Continue home meds -Seroquel as needed -Lacks decision-making capacity at this time -Sitter at bedside Disposition -Will require SNF on discharge -Mother is next of kin, requesting to be the decision maker -SW assistance appreciated Diagnosis/Problems Diagnosis/Problems (1) Delirium tremens Status: Resolved Resolution Date/Time: 12/05/18 @ 14:38 (2) Acute respiratory failure Status: Resolved Resolution Date/Time: 12/05/18 @ 14:38 (3) Schizoaffective disorder Status: Chronic (4) Macrocytic anemia Status: Chronic (5) Hypomagnesemia Status: Acute (6) Hypokalemia Status: Resolved Resolution Date/Time: 12/05/18 @ 14:38 (7) Acute kidney injury Status: Acute Clinical Quality Measures DVT/VTE Risk/Contraindication: Risk Factor Score Per Nursin RFS Level Per Nursing on Admit: 3=High JUNIOR KATE MD Dec 08, 2018 13:05
[2018-12-08 15:56] VITALS: BP 162/113
[2018-12-08] MEDS: MAGNESIUM OXIDE (MAG-OX)400 MG TAB PO SCH (17:48)
[2018-12-08 19:56] VITALS: BP 178/115
[2018-12-08] MEDS: traZODone 150 MG (DESYREL) TABLET PO SCH (21:03)
[2018-12-08] MEDS: CARVEDILOL 12.5 MG (COREG) TABLET PO SCH (21:03)
[2018-12-08] MEDS: QUEtiapine 200 MG (SEROquel) TAB IMMEDIATE RELEASE PO SCH (21:03)
[2018-12-08 23:41] VITALS: BP 162/93
[2018-12-09 04:18] VITALS: BP 159/97
[2018-12-09] MEDS: CYANOCOBALAMIN 1,000 MCG (VITAMIN B-12) TABLET PO SCH (06:04)
[2018-12-09] MEDS: MULTIVITAMINS LIQUID 15 ML UDC PO SCH (06:04)
[2018-12-09] MEDS: FOLIC ACID 1 MG TAB PO SCH (06:05)
[2018-12-09] MEDS: THIAMINE 100 MG (VITAMIN B-1) TAB PO SCH (06:05)
[2018-12-09] MEDS: KCL 20 MEQ TAB (K-DUR) PO SCH (06:05)
[2018-12-09 07:57] VITALS: BP 164/105
[2018-12-09] MEDS: ENOXAPARIN 40 MG/0.4 ML (LOVENOX) SYR SQ SCH (08:08)
[2018-12-09] MEDS: MAGNESIUM OXIDE (MAG-OX)400 MG TAB PO SCH ×2 (08:09→17:25)
[2018-12-09] MEDS: DOCUSATE SODIUM 100 MG (COLACE) CAP PO SCH ×2 (08:09→20:00)
[2018-12-09] MEDS: DIVALPROEX 500 MG DELAYED RELEASE (DEPAKOTE) TAB PO SCH ×2 (08:10→19:59)
[2018-12-09] MEDS: CARVEDILOL 12.5 MG (COREG) TABLET PO SCH ×2 (08:10→20:00)
[2018-12-09] MEDS: PANTOPRAZOLE 40 MG (PROTONIX) TAB PO SCH (08:10)
[2018-12-09] MEDS: amLODIPine 10 MG (NORVASC) TAB PO SCH (08:10)
[2018-12-09] MEDS: HALOPERIDOL 5 MG (HALDOL) TAB PO SCH ×2 (08:10→20:00)
[2018-12-09] MEDS: NICOTINE 14 MG (NICODERM) PATCH TD SCH ×2 (08:11→08:19)
--- NOTE | 2018-12-09 08:17 | NUR ---
NOTE THAT IV VANCOMYCIN IS NOT ON FLOOR PHARMACY WAS ADVISED --
[2018-12-09] MEDS: NICOTINE PATCH REMOVAL TP SCH (08:19)
[2018-12-09] MEDS: VANCOMYCIN INJECTION 1,500 MG in NS IV 500 ML 500 ML IV SCH (09:02)
[2018-12-09 09:16] LABS: HEMOGLOBIN 8.9 G/DL (13.3-17.7)
[2018-12-09 09:49] LABS: CALCIUM 8.8 MG/DL (8.5-10.1); CREATININE SERUM 1.4 MG/DL (0.60-1.30); MAGNESIUM 1.2 MG/DL (1.6-2.4); PHOSPHORUS 5.8 MG/DL (2.3-4.7); POTASSIUM 3.9 MMOL/L (3.6-5.0)
--- NOTE | 2018-12-09 09:54 | NUR ---
CM/SS [facility] here this am to speak to hospital staff and patient. They will take information back to administration and then let this telegraphic typewriter repairer know if they can accept the patient. Called DCF and was told the worker assigned to this case will be on vacation until 12/12. Updated patient's mother Maya.
--- NOTE | 2018-12-09 10:28 | Progress Note - Hospitalist ---
Subjective HPI/CC On Admission Date Seen by Provider: Dec 09, 2018 Time Seen by Provider: 09:00 Paresthesias Subjective/Events-last exam He was sleeping upon my arrival this morning but was easily awoken. He does recognize me and remember that I am his doctor. He did also remember that he is on the hospital, but was confused about the city and state that his in. He does not on the year and day, but was confused about the current month. He does not have any current complaints. He denies any pain. He denies any trouble breathing. He is eating and drinking well. He states that he is ready to get out of the hospital. Objective Exam Vital Signs Vital Signs Date Time Temp Pulse Resp B/P (MAP) Pulse Ox O2 Delivery O2 Flow Rate FiO2 12/09/18 09:00 Room Air 12/09/18 07:57 97.2 86 20 164/105 (124) 95 12/04/18 11:24 2.00 Capillary Refill : Less Than 3 SecondsLess Than 3 Seconds General Appearance: No Apparent Distress, WD/WN, Obese HEENT: PERRL/EOMI, Pharynx Normal Neck: Normal Inspection, Supple Respiratory: Lungs Clear, Normal Breath Sounds, No Respiratory Distress Cardiovascular: Regular Rate, Rhythm, No Edema, No Murmur Gastrointestinal: Normal Bowel Sounds, Non Tender, Soft Extremity: Normal Inspection, Non Tender, No Pedal Edema Neurologic/Psychiatric: Alert, Disoriented Skin: Normal Color, Warm/Dry Results/Procedures Lab Laboratory Tests 12/09/18 08:55 12/09/18 09:00 Patient resulted labs reviewed. 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 Acute hypoxic respiratory failure -s/p intubation -Resolved Schizoaffective disorder -Continue home meds -Seroquel as needed -Lacks decision-making capacity at this time Disposition -Will require SNF on discharge, being evaluated today -Mother is next of kin, requesting to be the decision maker -SW assistance appreciated Diagnosis/Problems Diagnosis/Problems (1) Delirium tremens Status: Resolved Resolution Date/Time: 12/05/18 @ 14:38 (2) Acute respiratory failure Status: Resolved Resolution Date/Time: 12/05/18 @ 14:38 (3) Schizoaffective disorder Status: Chronic (4) Macrocytic anemia Status: Chronic (5) Hypomagnesemia Status: Acute (6) Hypokalemia Status: Resolved Resolution Date/Time: 12/05/18 @ 14:38 (7) Acute kidney injury Status: Acute Clinical Quality Measures DVT/VTE Risk/Contraindication: Risk Factor Score Per Nursin RFS Level Per Nursing on Admit: 3=High JUNIOR KATE MD Dec 09, 2018 10:28
[2018-12-09] MEDS: MAGNESIUM 1 GM/100 ML IVPB 100 ML IV SCH ×4 (10:41→13:36)
--- NOTE | 2018-12-09 10:57 | NUR ---
CM/FELECIA was able to get patient's ssn ([phone]) from his mother and provided it to [facility].
--- NOTE | 2018-12-09 11:00 | Physical Therapy Progress Note ---
Therapy Progress Note Patient is up with nursing PRN. PT to dismiss patient from services at this time. CHRISTINA DEY PT Dec 09, 2018 11:00
[2018-12-09 11:27] VITALS: BP 152/106
--- NOTE | 2018-12-09 15:08 | NUR ---
CM/SS [facility] denied acceptance of the patient, listed reasons as patient's drinking/wanting to drink and fear he'd go awol.
--- NOTE | 2018-12-09 15:29 | NUR ---
CM/SS spoke with the patient's mother (Maya) to update that [place] denied. Discussed more his baseline for psych, she states that he did have auditory and visual hallucinations and would drink to quiet the voices. She said that he has inpatient psych placement before at [facility].
[2018-12-09 15:39] VITALS: BP 139/105
[2018-12-09 19:35] VITALS: BP 151/98
[2018-12-09] MEDS: QUEtiapine 200 MG (SEROquel) TAB IMMEDIATE RELEASE PO SCH (20:00)
[2018-12-09] MEDS: traZODone 150 MG (DESYREL) TABLET PO SCH (20:00)
[2018-12-09 23:04] VITALS: BP 156/100
[2018-12-10 03:57] VITALS: BP 150/102
[2018-12-10 06:21] LABS: CALCIUM 9.1 MG/DL (8.5-10.1); CREATININE SERUM 1.51 MG/DL (0.60-1.30); POTASSIUM 3.6 MMOL/L (3.6-5.0)
[2018-12-10] MEDS: THIAMINE 100 MG (VITAMIN B-1) TAB PO SCH (06:33)
[2018-12-10] MEDS: CYANOCOBALAMIN 1,000 MCG (VITAMIN B-12) TABLET PO SCH (06:33)
[2018-12-10] MEDS: FOLIC ACID 1 MG TAB PO SCH (06:33)
[2018-12-10] MEDS: KCL 20 MEQ TAB (K-DUR) PO SCH (06:33)
[2018-12-10] MEDS: MULTIVITAMINS LIQUID 15 ML UDC PO SCH (06:35)
[2018-12-10 08:47] VITALS: BP 110/69
[2018-12-10] MEDS: DOCUSATE SODIUM 100 MG (COLACE) CAP PO SCH ×2 (09:03→21:21)
[2018-12-10] MEDS: NICOTINE PATCH REMOVAL TP SCH (09:03)
[2018-12-10] MEDS: PANTOPRAZOLE 40 MG (PROTONIX) TAB PO SCH (09:03)
[2018-12-10] MEDS: MAGNESIUM OXIDE (MAG-OX)400 MG TAB PO SCH ×2 (09:03→16:56)
[2018-12-10] MEDS: HALOPERIDOL 5 MG (HALDOL) TAB PO SCH ×2 (09:04→21:20)
[2018-12-10] MEDS: amLODIPine 10 MG (NORVASC) TAB PO SCH (09:04)
[2018-12-10] MEDS: ENOXAPARIN 40 MG/0.4 ML (LOVENOX) SYR SQ SCH (09:04)
[2018-12-10] MEDS: CARVEDILOL 12.5 MG (COREG) TABLET PO SCH ×2 (09:04→21:20)
[2018-12-10] MEDS: DIVALPROEX 500 MG DELAYED RELEASE (DEPAKOTE) TAB PO SCH ×2 (09:04→21:20)
[2018-12-10] MEDS: NICOTINE 14 MG (NICODERM) PATCH TD SCH (09:04)
[2018-12-10 09:10] VITALS: BP 108/69
--- NOTE | 2018-12-10 12:13 | Progress Note - Hospitalist ---
Subjective HPI/CC On Admission Date Seen by Provider: Dec 10, 2018 Time Seen by Provider: 10:15 Paresthesias Subjective/Events-last exam He reports that he is feeling almost morning. He says that he wants to get out of the hospital. He says that his friend Susie can come pick him up as soon as he calls her. He is unable to tolerate why he is in the hospital. He does not know the name of the city that he is in and he does not know what month it is. He denies any pain symptoms. He denies any trouble breathing. He denies any nausea or vomiting. Focused Exam Lactate Level 12/10/18 08:42: Lactic Acid Level 1.28 Lactic Acid Level Laboratory Tests Test 12/10/18 08:42 Lactic Acid Level 1.28 MMOL/L (0.50-2.00) Objective Exam Vital Signs Vital Signs Date Time Temp Pulse Resp B/P (MAP) Pulse Ox O2 Delivery O2 Flow Rate FiO2 12/10/18 09:10 73 108/69 (82) 12/10/18 08:47 97.0 18 96 Room Air 12/04/18 11:24 2.00 Capillary Refill : Less Than 3 SecondsLess Than 3 Seconds General Appearance: No Apparent Distress, WD/WN, Obese HEENT: PERRL/EOMI, Pharynx Normal Neck: Non Tender, Supple Respiratory: Lungs Clear, Normal Breath Sounds, No Respiratory Distress Cardiovascular: Regular Rate, Rhythm, No Edema, No Murmur Gastrointestinal: Normal Bowel Sounds, Non Tender, Soft Extremity: Normal Inspection, Non Tender, No Pedal Edema Neurologic/Psychiatric: Alert, No Motor/Sensory Deficits, Disoriented Skin: Normal Color, Warm/Dry Lymphatic: No Adenopathy Results/Procedures Lab Laboratory Tests 12/10/18 05:20 Patient resulted labs reviewed. Assessment/Plan Assessment and Plan Assess & Plan/Chief Complaint Schizoaffective disorder -Continue home meds -Seroquel as needed -Lacks decision-making capacity at this time Disposition -Denied placement thus far -Mother is next of kin, currently decision-maker -Process started to obtain guardian -SW assistance appreciated Acute kidney injury -Cr 1.5, stable -Likely toxic effect from vancomycin Alcohol dependence Delirium tremens, resolved -Continue MVN/Folate/Thiamine Electrolyte disturbance Hypokalemia Hypomagnesemis Hyperphosphatemia -Replacing electrolytes as needed Macrocytic anemia -Stable HTN -Continue metoprolol Paresthesias, resolved -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 Acute hypoxic respiratory failure, resolved -s/p intubation MRSA pneumonia, resolved -Repeat sputum and nare cultures ordered Diagnosis/Problems Diagnosis/Problems (1) Delirium tremens Status: Resolved Resolution Date/Time: 12/05/18 @ 14:38 (2) Acute respiratory failure Status: Resolved Resolution Date/Time: 12/05/18 @ 14:38 (3) Schizoaffective disorder Status: Chronic (4) Macrocytic anemia Status: Chronic (5) Hypomagnesemia Status: Resolved Resolution Date/Time: 12/10/18 @ 12:13 (6) Hypokalemia Status: Resolved Resolution Date/Time: 12/05/18 @ 14:38 (7) Acute kidney injury Status: Acute Clinical Quality Measures DVT/VTE Risk/Contraindication: Risk Factor Score Per Nursin RFS Level Per Nursing on Admit: 3=High JUNIOR KATE MD Dec 10, 2018 12:13
[2018-12-10 12:35] VITALS: BP 134/96
[2018-12-10 15:57] VITALS: BP 161/106
[2018-12-10 19:15] VITALS: BP 141/93
[2018-12-10] MEDS: QUEtiapine 200 MG (SEROquel) TAB IMMEDIATE RELEASE PO SCH (21:20)
[2018-12-10] MEDS: traZODone 150 MG (DESYREL) TABLET PO SCH (21:20)
[2018-12-11 00:01] VITALS: BP 131/86
[2018-12-11 06:11] LABS: CALCIUM 9.7 MG/DL (8.5-10.1); CREATININE SERUM 1.6 MG/DL (0.60-1.30); MAGNESIUM 1.4 MG/DL (1.6-2.4); POTASSIUM 3.9 MMOL/L (3.6-5.0)
[2018-12-11] MEDS: THIAMINE 100 MG (VITAMIN B-1) TAB PO SCH (06:31)
[2018-12-11] MEDS: CYANOCOBALAMIN 1,000 MCG (VITAMIN B-12) TABLET PO SCH (06:31)
[2018-12-11] MEDS: FOLIC ACID 1 MG TAB PO SCH (06:31)
[2018-12-11] MEDS: MULTIVITAMINS LIQUID 15 ML UDC PO SCH (06:32)
[2018-12-11] MEDS: KCL 20 MEQ TAB (K-DUR) PO SCH (06:36)
[2018-12-11 08:12] VITALS: BP 118/71
[2018-12-11] MEDS ORDERED: LACTATED RINGERS 1,000 ML IV SCH (08:15)
[2018-12-11] MEDS: NICOTINE PATCH REMOVAL TP SCH (08:18)
[2018-12-11] MEDS: MAGNESIUM OXIDE (MAG-OX)400 MG TAB PO SCH ×2 (08:18→18:39)
[2018-12-11] MEDS: MAGNESIUM 1 GM/100 ML IVPB 100 ML IV SCH ×4 (08:18→11:15)
[2018-12-11] MEDS: ENOXAPARIN 40 MG/0.4 ML (LOVENOX) SYR SQ SCH (08:19)
[2018-12-11] MEDS: HALOPERIDOL 5 MG (HALDOL) TAB PO SCH ×2 (08:19→20:12)
[2018-12-11] MEDS: DOCUSATE SODIUM 100 MG (COLACE) CAP PO SCH ×2 (08:19→20:12)
[2018-12-11] MEDS: CARVEDILOL 12.5 MG (COREG) TABLET PO SCH ×2 (08:19→20:12)
[2018-12-11] MEDS: amLODIPine 10 MG (NORVASC) TAB PO SCH (08:19)
[2018-12-11] MEDS: NICOTINE 14 MG (NICODERM) PATCH TD SCH (08:19)
[2018-12-11] MEDS: PANTOPRAZOLE 40 MG (PROTONIX) TAB PO SCH (08:19)
[2018-12-11] MEDS: DIVALPROEX 500 MG DELAYED RELEASE (DEPAKOTE) TAB PO SCH ×2 (08:31→20:12)
[2018-12-11] MEDS ORDERED: KCL 20 MEQ TAB (K-DUR) PO ONE (12:00)
--- NOTE | 2018-12-11 13:26 | Progress Note - Hospitalist ---
Subjective HPI/CC On Admission Date Seen by Provider: Dec 11, 2018 Time Seen by Provider: 12:00 Paresthesias Subjective/Events-last exam he denies any current complaints. He wants to watch football today. Whenever he sees me he tells me that he has changed his mind and he wants to go to rehabilitation. His only desires to be able to smoke at rehabilitation. He is able to tolerate the year and the date. He is confused about the month. He does know the city in place that he is in. He is also able to tell me why he has been hospitalized and the risks associated with drinking again. He denies any fevers, chills, chest pain, dyspnea, abdominal pain, nausea, vomiting, diarrhea, or constipation. Focused Exam Lactate Level 12/10/18 08:42: Lactic Acid Level 1.28 Objective Exam Vital Signs Vital Signs Date Time Temp Pulse Resp B/P (MAP) Pulse Ox O2 Delivery O2 Flow Rate FiO2 12/11/18 08:12 98.3 81 18 118/71 (87) 95 Room Air Capillary Refill : Less Than 3 SecondsLess Than 3 Seconds General Appearance: No Apparent Distress, WD/WN HEENT: PERRL/EOMI, Pharynx Normal Neck: Normal Inspection, Supple Respiratory: Lungs Clear, Normal Breath Sounds, No Respiratory Distress Cardiovascular: Regular Rate, Rhythm, No Edema, No Murmur Gastrointestinal: Normal Bowel Sounds, Non Tender, Soft Extremity: Normal Inspection, Non Tender, No Pedal Edema Neurologic/Psychiatric: Alert, Disoriented (oriented to self, year, and place; disoriented to month) Skin: Normal Color, Warm/Dry Lymphatic: No Adenopathy Results/Procedures Lab Laboratory Tests 12/11/18 04:53 Patient resulted labs reviewed. Assessment/Plan Assessment and Plan Assess & Plan/Chief Complaint Schizoaffective disorder -Continue home meds Disposition -Denied placement thus far -Mother is next of kin, currently decision-maker -Process started to obtain guardian -SW assistance appreciated -Appears to be trending toward regaining decision-making capacity Acute kidney injury Vancomycin adverse reaction -Cr 1.6, mildly worsened today -vancomycin course completed Alcohol dependence Delirium tremens, resolved -Continue MVN/Folate/Thiamine Electrolyte disturbance Hypokalemia Hypomagnesemia Hyperphosphatemia -Replacing electrolytes as needed Macrocytic anemia -Stable HTN -Continue amlodipine and Coreg Paresthesias, resolved -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 Acute hypoxic respiratory failure, resolved -s/p intubation MRSA pneumonia, resolved -Repeat sputum and nare cultures ordered Diagnosis/Problems Diagnosis/Problems (1) Delirium tremens Status: Resolved Resolution Date/Time: 12/05/18 @ 14:38 (2) Acute respiratory failure Status: Resolved Resolution Date/Time: 12/05/18 @ 14:38 (3) Schizoaffective disorder Status: Chronic (4) Macrocytic anemia Status: Chronic (5) Hypomagnesemia Status: Resolved Resolution Date/Time: 12/10/18 @ 12:13 (6) Hypokalemia Status: Resolved Resolution Date/Time: 12/05/18 @ 14:38 (7) Acute kidney injury Status: Acute (8) Vancomycin adverse reaction Clinical Quality Measures DVT/VTE Risk/Contraindication: Risk Factor Score Per Nursin RFS Level Per Nursing on Admit: 3=High JUNIOR KATE MD Dec 11, 2018 13:26
[2018-12-11 16:39] VITALS: BP 124/86
[2018-12-11] MEDS: QUEtiapine 200 MG (SEROquel) TAB IMMEDIATE RELEASE PO SCH (20:12)
[2018-12-11] MEDS: traZODone 150 MG (DESYREL) TABLET PO SCH (20:14)
[2018-12-12] VITALS: BP 113/69
[2018-12-12] MEDS: THIAMINE 100 MG (VITAMIN B-1) TAB PO SCH (06:11)
[2018-12-12] MEDS: FOLIC ACID 1 MG TAB PO SCH (06:12)
[2018-12-12] MEDS: MULTIVITAMINS LIQUID 15 ML UDC PO SCH (06:12)
[2018-12-12] MEDS: CYANOCOBALAMIN 1,000 MCG (VITAMIN B-12) TABLET PO SCH (06:12)
[2018-12-12 06:27] LABS: CALCIUM 9.5 MG/DL (8.5-10.1); CREATININE SERUM 1.68 MG/DL (0.60-1.30); MAGNESIUM 2.1 MG/DL (1.6-2.4); POTASSIUM 4.2 MMOL/L (3.6-5.0)
[2018-12-12] MEDS: KCL 20 MEQ TAB (K-DUR) PO SCH (06:32)
[2018-12-12 08:00] VITALS: BP 122/79
--- NOTE | 2018-12-12 08:34 | Progress Note - Hospitalist ---
JAVON MANRIQUEZ,MED STUDENT 12/12/18 0834: Subjective HPI/CC On Admission Date Seen by Provider: Dec 12, 2018 Paresthesias Subjective/Events-last exam Patient says that he is feeling better and is wondering when he can leave and "get his freedom back". He said that his family wants him to go to rehab but all he wants is to "buy bus ticket to [place] and have a smoke and a drink." He denies headaches, nausea, vomiting, dizziness, stomach pain, SOB, cough, chest pain, diarrhea, constipation, numbness, tingling and weakness Focused Exam Lactate Level 12/10/18 08:42: Lactic Acid Level 1.28 Objective Exam Vital Signs Vital Signs Date Time Temp Pulse Resp B/P (MAP) Pulse Ox O2 Delivery O2 Flow Rate FiO2 12/12/18 07:29 Room Air 12/12/18 00:00 97.7 77 18 113/69 (84) 96 Capillary Refill : Less Than 3 SecondsLess Than 3 Seconds General Appearance: No Apparent Distress, WD/WN, Obese Respiratory: Chest Non Tender, No Accessory Muscle Use, No Respiratory Distress Cardiovascular: Regular Rate, Rhythm, No Edema, Normal Peripheral Pulses Gastrointestinal: No Pulsatile Mass, Non Tender, Soft Extremity: Normal Capillary Refill, Non Tender, No Calf Tenderness, No Pedal Edema Neurologic/Psychiatric: Alert, Oriented x3, No Motor/Sensory Deficits, Other (not agitated and is cooperative ) Skin: Normal Color, Warm/Dry Results/Procedures Lab Laboratory Tests 12/12/18 05:40 Patient resulted labs reviewed. 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 HTN - b-yazmin and CCB MRSA - Resolved Vancomycin completed Macrocytic Anemia - * checking B12 and folate - recheck * replace IV * likely some is dilutional Paresthesias in feet - likely due nutritional deficiency or alcoholic neuropathy * resolved FENGIPPx * fluids = hep lock * Electrolytes = hep lock * Nutrition =regular diet * GI PPx = not indicated * PPX = allowed to get up and walk around room Clinical Quality Measures DVT/VTE Risk/Contraindication: Risk Factor Score Per Nursin RFS Level Per Nursing on Admit: 3=High KESHA STATON MD 12/14/18 1555: JAVON MANRIQUEZ,MED STUDENT Dec 12, 2018 08:34 KESHA STATON MD Dec 14, 2018 15:55
[2018-12-12] MEDS ORDERED: MULT-642 PO (09:33)
[2018-12-12] MEDS ORDERED: AMLO10TA7 PO (09:33)
[2018-12-12] MEDS ORDERED: POTA20TA8 PO (09:33)
[2018-12-12] MEDS ORDERED: CARV25TA PO (09:33)
[2018-12-12] MEDS: DOCUSATE SODIUM 100 MG (COLACE) CAP PO SCH (09:41)
[2018-12-12] MEDS: CARVEDILOL 12.5 MG (COREG) TABLET PO SCH (09:41)
[2018-12-12] MEDS: NICOTINE 14 MG (NICODERM) PATCH TD SCH (09:41)
[2018-12-12] MEDS: PANTOPRAZOLE 40 MG (PROTONIX) TAB PO SCH (09:41)
[2018-12-12] MEDS: amLODIPine 10 MG (NORVASC) TAB PO SCH (09:41)
[2018-12-12] MEDS: HALOPERIDOL 5 MG (HALDOL) TAB PO SCH (09:41)
[2018-12-12] MEDS: ENOXAPARIN 40 MG/0.4 ML (LOVENOX) SYR SQ SCH (09:41)
[2018-12-12] MEDS: NICOTINE PATCH REMOVAL TP SCH (09:42)
[2018-12-12] MEDS: MAGNESIUM OXIDE (MAG-OX)400 MG TAB PO SCH (09:42)
--- NOTE | 2018-12-12 10:11 | NUR ---
CM/SS patient discharging this day. PT has signed off on the patient, he is much more lucid. Spoke with Maya (Mom, ) she agreed he is doing much better. Patient wants to head out his mother and daughter's way at the start of the month when can buy a bus ticket. Message left for Susie (friend, ) to see about transportation for the patient.
[2018-12-12] MEDS: DIVALPROEX 500 MG DELAYED RELEASE (DEPAKOTE) TAB PO SCH (10:15)
[2018-12-12 15:20] VITALS: BP 122/79
--- NOTE | 2018-12-12 15:20 | Discharge Summary ---
Diagnosis/Chief Complaint Date of Admission Nov 27, 2018 at 8:30 pm Date of Discharge Discharge Date: Dec 12, 2018 Admission Diagnosis Severe Hypokalemia and electrolyte abnormalities Primary Care No,Local Physician Discharge Diagnosis (1) Delirium tremens Status: Resolved (2) Acute respiratory failure Status: Resolved (3) Schizoaffective disorder Status: Chronic (4) Macrocytic anemia Status: Chronic (5) Hypomagnesemia Status: Resolved (6) Hypokalemia Status: Resolved (7) Acute kidney injury Status: Acute (8) Vancomycin adverse reaction Discharge Summary Procedures/Consulations Pulm- Dr Mai Discharge Physical Exam Allergies: Coded Allergies: No Known Drug Allergies (Unverified , 11/27/18) Vitals & I&Os Vital Signs Date Time Temp Pulse Resp B/P (MAP) Pulse Ox O2 Delivery O2 Flow Rate FiO2 12/12/18 09:00 Room Air 12/12/18 08:00 97.9 83 20 122/79 (93) 97 General Appearance: No Apparent Distress, Chronically ill Respiratory: Lungs Clear, No Respiratory Distress Cardiovascular: Regular Rate, Rhythm, No Murmur Neurologic/Psychiatric: Alert, Oriented x3 Hospital Course Pt was admitted for severe refractory hypokalemia and hypomagnesemia. He is a known alcoholic and during admission suffered alcohol withdrawal and ultimately had to be intubated and sedated during this. He was successfully extubated but suffered from ICU delirium exacerbated by baseline schizophrenia and DTs. He had a prolonged stay due to this but improved slowly and was ultimately back to baseline. He was also found to have MRSA pneumonia during this admission and treated with Vancomycin. He suffered a slight VESNA from Vancomycin but that improved and creatinine was stable at discharge. He was discharged home in stable condition on daily potassium supplementation and new antihypertensives. He is to follow up with [facility] to establish care. Social work was consulted to assist with alcohol treatment as well and resources were provided to him for this. He was discharged home in stable condition. Labs (last 24 hrs) Laboratory Tests 12/12/18 05:40: Sodium Level 137, Potassium Level 4.2, Chloride Level 100, Carbon Dioxide Level 25, Anion Gap 12, Blood Urea Nitrogen 16, Creatinine 1.68H, Estimat Glomerular Filtration Rate 44, BUN/Creatinine Ratio 10, Glucose Level 98, Calcium Level 9.5 , Magnesium Level 2.1 Microbiology 12/05/18 C. difficile GDH Antigen & Toxins - Final, Complete 12/09/18 Gram Stain - Final, Resulted 12/09/18 Sputum Culture - Preliminary, Resulted Usual upper respiratory anna 12/06/18 Urine Culture - Final, Complete NO GROWTH Patient resulted labs reviewed. Discussion & Recommendations Discharge Planning: >30 minutes discharge planning Discharge Home Medications: Active Scripts Active Klor-Con M20 (Potassium Chloride) 20 Meq Tab.er.prt 20 Meq PO DAILY@0700 Once Daily (Multivitamin) 1 Each Tablet 1 Each PO DAILY Amlodipine Besylate 10 Mg Tablet 10 Mg PO DAILY Carvedilol 25 Mg Tablet 25 Mg PO BID Reported Hydroxyzine HCl 50 Mg Tablet 50 Mg PO QID Omeprazole 40 Mg Capsule.dr 40 Mg PO DAILY Haloperidol 5 Mg Tablet 5 Mg PO BID Divalproex Sodium 500 Mg Tablet.dr 500 Mg PO BID Quetiapine Fumarate 400 Mg Tablet 400 Mg PO HS Trazodone HCl 150 Mg Tablet 150 Mg PO HS Instructions to patient/family Please see electronic discharge instructions given to patient. Clinical Quality Measures DVT/VTE Risk/Contraindication: Risk Factor Score Per Nursin RFS Level Per Nursing on Admit: 3=High KESHA STATON MD Dec 12, 2018 3:20 pm
== END 2018-12-12 15:25 | disposition home or self-care (01) | DRG 640 ==
LOC: ER FS 15:52 → 4TH 20:30 → ICU 22:18 → 4TH 12-04 08:13
PROVIDERS: ADMIT Internal Medicine; ATTEND Family Medicine
PROC: 5A1945Z Respiratory Ventilation, 24-96 Consecutive Hours (ICD-10-PCS; principal; 2018-11-29)
PROC: 0BH17EZ Insertion of Endotracheal Airway into Trachea, Via Natural or Artificial Opening (ICD-10-PCS; 2018-11-29)
DX: E87.6 Hypokalemia (principal); E83.42 Hypomagnesemia; E87.2 Acidosis; F10.231 Alcohol dependence with withdrawal delirium; J96.00 Acute respiratory failure, unspecified whether with hypoxia or hypercapnia; J15.212 Pneumonia due to Methicillin resistant Staphylococcus aureus; G93.41 Metabolic encephalopathy; N17.9 Acute kidney failure, unspecified; G62.1 Alcoholic polyneuropathy; R53.1 Weakness; F17.210 Nicotine dependence, cigarettes, uncomplicated; F43.10 Post-traumatic stress disorder, unspecified; F31.9 Bipolar disorder, unspecified; F25.9 Schizoaffective disorder, unspecified; E66.9 Obesity, unspecified; D64.9 Anemia, unspecified; G62.0 Drug-induced polyneuropathy; E86.0 Dehydration; R73.9 Hyperglycemia, unspecified; Z68.31 Body mass index [BMI] 31.0-31.9, adult; G47.33 Obstructive sleep apnea (adult) (pediatric); T36.8X5A Adverse effect of other systemic antibiotics, initial encounter
CPT/HCPCS: 36415; 36600; 71045; 71046; 80048; 80053; 80202; 80306; 80320; 81000; 82010; 82330; 82570; 82607; 82747; 82805; 82962; 83036; 83605; 83735; 83880; 84100; 84132; 84156; 84300; 84478; 84484; 85007; 85014; 85018; 85025; 85027; 85610; 85730; 87070; 87077; 87081; 87088; 87186; 87205; 87324; 87449; 93005; 94002; 94003; 94640; 94664; 94760; 94799; 96361; 96365; 96366; 96367; 96375

== ENCOUNTER → 2019-02-17 | Outpatient (CLI) | payer MEDICAID ==
[~2019-02-17] MED LIST: AMLO10TA7 PO; CARV25TA PO; DIVA-76 PO; HALO5TAB PO; HYDR50TA76 PO; MULT-642 PO; OMEP40CA27 PO; POTA20TA8 PO; QUET400T12 PO; TRAZ150T72 PO
[2019-02-17 10:55] LABS: ALANINE AMINOTRANSFERASE 66 U/L (0-55); ALBUMIN 4.4 GM/DL (3.2-4.5); ALKALINE PHOSPHATASE 137 U/L (40-136); BILIRUBIN,TOTAL 0.6 MG/DL (0.1-1.0); BUN/CREATININE RATIO 6; CALCIUM 9.3 MG/DL (8.5-10.1); CARBON DIOXIDE 20 MMOL/L (21-32); CHLORIDE 98 MMOL/L (98-107); CREATININE SERUM 0.71 MG/DL (0.60-1.30); GFR ESTIMATED > 60; GLUCOSE 126 MG/DL (70-105); POTASSIUM 2.9 MMOL/L (3.6-5.0); SODIUM 142 MMOL/L (135-145); TOTAL PROTEIN 7.9 GM/DL (6.4-8.2)
[2019-02-17 21:42] LABS: HEPATITIS C ANTIBODY C Non-Reactive (Non-Reactive)
== END ==
LOC: LAB FS 10:00
PROVIDERS: ATTEND Nurse Practitioner
DX: E87.6 Hypokalemia (principal)
CPT/HCPCS: 36415; 80053; 80074; 83036